=== PATIENT | male | born 1950 | race Caucasian/White ===

== ENCOUNTER 2017-04-24 18:13 | Inpatient (IN) ==
--- NOTE | 2017-04-24 18:44 | Emergency Department Note ---
Altered Mental Status HPI - General Chief Complaint: Altered Mental Status Stated Complaint: Decreased LOC Time Seen by Provider: 04/24/17 18:15 - History of Present Illness HPI Narrative: History is obtained from EMS as well as a caregiver. According to EMS he's had a previous history of stroke, history of left-sided weakness and today he's had some tremors. Also was running a low-grade fever. Was disoriented when EMS got there apparently had been like this for about 4 hours. No new focal weakness, he denies any headache and he does note that he is at the hospital. He does remember coming here. No history of any vomiting, no diarrhea, no history of any chest pain or shortness of breath, he is not currently smoking or drinking. Caregiver states that he's been confused for about the last 4 hours. Blood pressure was 137 diastolic when EMS arrived. History is very confusing in the sense that the sister arrived, she tells me that he has been under her care for the last 3 weeks. She is not present but she found out from 2 of his other roommates that he had been vomiting. He vomited this morning starting about 10:00 and then a neighbor was upstairs found out that he was not doing well and called EMS. When EMS arrived he was confused, his blood pressure was very high he seems back to his baseline at this time. Sister is verified that he is back to his baseline. He denies any headache. He did have tremors of his upper and lower extremities today, he does have a lot of spasms and his sister states that she was not present during the day today. She is denying that he is having trouble taking his medications but then he is not able to use his left arm and there is a question as to whether he received any of his medications today other than the ones he takes this morning.he denies chest pain he denies abdominal pain denies constipation or diarrhea. He's had no urinary symptoms. MD complaint: altered mental status - Related Data Home Medications Medication Instructions Recorded Confirmed Aspirin [Stephen Chewable Aspirin] 81 mg PO DAILY 04/24/17 04/24/17 Baclofen 20 mg PO TID 04/24/17 04/24/17 Lisinopril [Zestril] 10 mg PO BID 04/24/17 04/24/17 Melatonin 10 mg PO HS 04/24/17 04/24/17 Oxybutynin Chloride [Ditropan] 5 mg PO BID 04/24/17 04/24/17 Pantoprazole [Protonix] 40 mg PO DAILY 04/24/17 04/24/17 Pramipexole [Mirapex] 0.5 mg PO BID 04/24/17 04/24/17 Sertraline [Zoloft] 150 mg PO DAILY 04/24/17 04/24/17 guaiFENesin [Guaifenesin] 400 mg PO DAILY 04/24/17 04/24/17 oxyCODONE HCL [Oxycodone HCl] 5 mg PO DAILY 04/24/17 04/24/17 oxyCODONE HCL [Oxycodone HCl] 10 mg PO BID 04/24/17 04/24/17 rOPINIRole HCL [Requip] 2 mg PO HS 04/24/17 04/24/17 traZODone HCL [Trazodone HCl] 100 mg PO HS 04/24/17 04/24/17 Allergies Allergy/AdvReac Type Severity Reaction Status Date / Time No Known Drug Allergies Allergy Unverified 04/24/17 18:22 Review of Systems Constitutional: Denies: fever, chills Eyes: Denies: eye pain ENT ED: Denies: ear pain, throat pain Cardiovascular: Denies: chest pain, palpitations Respiratory: Reports: cough Gastrointestinal: Reports: nausea, vomiting. Denies: abdominal pain Genitourinary: Denies: dysuria Musculoskeletal: Denies: back pain Neurological: Reports: weakness, paresthesias, abnormal gait, other (gait and neurologic symptoms are old). Denies: headache Endocrine: Denies: heat or cold intolerance Hematological/Lymphatic: Denies: easy bleeding Past Medical History - Past Medical History Source: nursing notes reviewed Medical history: Reports: COPD, CVA Surgical history ED: Reports: non-contributory - Social History smoking status: Current every day smoker Alcohol use: Reports: Rarely Drug use: Reports: none Physical Exam - General Limitations: altered mental status, physical limitation General appearance: alert, in no apparent distress - Head Head exam: atraumatic, normocephalic, normal inspection - Eye Eye exam: Present: normal appearance, PERRL, other (Visual field deficitright lateral as well as left inferior and left lateral). Absent: conjunctival injection, nystagmus, visual hernandez inctact - ENT ENT exam: normal exam, normal oropharynx, mucous membranes moist, TM's normal bilaterally, normal external ear exam - Neck Neck exam: Present: normal inspection, full ROM, trachea midline. Absent: tenderness, thyromegaly - Chest Chest inspection: Present: normal inspection, symmetric chest wall rise. Absent : tenderness - Respiratory Respiratory exam: Present: normal lung sounds bilaterally. Absent: respiratory distress, wheezes, accessory muscle use - Cardiovascular Cardiovascular exam: Present: regular rate, normal heart sounds - Abdominal Exam Abdominal exam: Present: soft, normal bowel sounds. Absent: distention, tenderness, guarding - Extremities Exam Extremities exam: Present: other (muscle spasm mainly of his left lower extremity with decreased sensation. Also 3 beat clonus to his right ankle, spasms of his right hand and left arm with decreased sensation and movement to the left arm, residual left arm weakness. He wears a brace to his left lower leg.). Absent: full ROM, tenderness - Back Exam Back exam: Present: normal inspection. Absent: CVA tenderness (R), CVA tenderness (L) - Neurological Exam Neurological exam: Present: alert, oriented X3, motor sensory deficit - Psychiatric Psychiatric exam: Present: normal affect - Skin Skin exam: Present: warm, dry, intact. Absent: rash Course - Reevaluation(s) Reevaluation #1: Head CT showing several old strokes, perhaps a new evolving stroke. There was some edema mentioned. His behavior seems odd in the sense that he is picking at things, a sister does think he is a little bit confused but to me he is awake alert oriented 3 his behavior has improved and he may have had seizure- like activity related to his previous CVA. At this point it would be important to watch him in the hospital with neuro checks, initiate TIA workup and proceed from there. Monitor his blood pressure as he was quite hypertensive initially. Also his white blood cell count is slightly elevated which may be from vomiting, he also need to be monitored for possible aspiration.discussed with Dr. Jasso Vital Signs Temperature 99.9 F H 04/24/17 18:14 Pulse Rate 111 H 04/24/17 18:14 Respiratory Rate 18 04/24/17 18:14 Blood Pressure 184/79 04/24/17 18:14 Pulse Oximetry (%) 97 04/24/17 18:14 Temperature 99.9 F H 04/24/17 18:14 Pulse Rate 89 04/24/17 20:16 Respiratory Rate 16 04/24/17 20:16 Blood Pressure 147/73 04/24/17 20:16 Pulse Oximetry (%) 96 04/24/17 20:16 Altered Mental Status - MDM Narrative Medical decision making narrative: impression isaltered level of mentation. Rule out stroke. - Lab Data Result diagrams: 04/24/17 19:00 04/24/17 19:00 Lab Results 04/24/17 04/24/17 04/24/17 Range/Units 19:00 19:00 19:00 WBC 12.5 H (4.5-11.0) K/mcL RBC 4.59 (4.50-5.90) M/mcL Hgb 14.6 (13.5-16.5) g/dL Hct 42.9 (41.0-55.0) % MCV 93.6 (80.0-100.0) fL MCH 31.7 (26.0-34.0) pg MCHC 33.9 (31.0-36.0) g/dL RDW 16.0 H (11.5-14.5) % Plt Count 159 (140-440) K/mcL MPV 8.7 (7.4-10.4) fL Gran % 82.1 H (38.0-78.0) % Lymph % (Auto) 13.7 L (15.5-49.0) % [place] % (Auto) 2.8 (1.0-12.0) % Eos % (Auto) 1.2 (0.0-7.0) % Baso % (Auto) 0.2 (0.0-2.0) % Gran # 10.3 H (1.8-8.0) K/mcL Lymph # (Auto) 1.7 (1.5-4.8) K/mcL [place] # (Auto) 0.3 (0.1-0.9) K/mcL Eos # (Auto) 0.1 (0.0-0.7) K/mcL Baso # (Auto) 0 (0.0-0.3) K/mcL Sodium 136 (133-145) mmol/L Potassium 4.6 (3.3-5.1) mmol/L Chloride 97 (96-108) mmol/L Carbon Dioxide 24 (22-30) mmol/L Anion Gap 15.0 (8-16) BUN 31 H (8-23) mg/dl Creatinine 1.6 H (0.7-1.2) mg/dl GFR Calculation 44 Glucose 124 H (70-105) mg/dL Calcium 9.2 (8.6-10.4) mg/dl Total Bilirubin 0.3 (0.0-1.0) mg/dL AST 19 (0-37) U/l ALT 19 (0-40) U/l Alkaline Phosphatase 68 (39-117) U/L C-Reactive Protein < 0.3 (0.0-0.8) mg/dl Total Protein 6.9 (5.9-8.4) gm/dL Albumin 4.4 (3.2-5.2) gm/dL Globulin 2.5 (2.2-3.7) gm/dL Albumin/Globulin Ratio 1.8 (1.0-2.3) Vitamin B12 833.3 (243-894) pg/ml Folate (4.2-19.9) ng/mL TSH 1.99 (0.27-5.01) uIU/ml Thyroxine (T4) 5.1 (5.0-12.0) ug/dl Urine Color Urine Appearance Urine pH (5.0-9.0) Ur Specific [place] (1.000-1.035) Urine Protein (NEG) mg/dL Urine Glucose (UA) (NEG) mg/dL Urine Ketones (NEG) mg/dL Urine Occult Blood (<0.03) mg/dL Urine Nitrate (NEG) Urine Bilirubin (NEG) mg/dL Urine Urobilinogen (NEG) mg/dL Ur Leukocyte Esterase (NEG) /uL Urine RBC (0-1) /hpf Urine WBC (0-4) /hpf Ur Squamous Epith Cells (0-4) /hpf Urine Bacteria (0) /hpf Hyaline Casts (0-2) /lpf Urine Mucus (0) /hpf Ur Culture Indicated? 04/24/17 04/24/17 Range/Units 19:00 19:43 WBC (4.5-11.0) K/mcL RBC (4.50-5.90) M/mcL Hgb (13.5-16.5) g/dL Hct (41.0-55.0) % MCV (80.0-100.0) fL MCH (26.0-34.0) pg MCHC (31.0-36.0) g/dL RDW (11.5-14.5) % Plt Count (140-440) K/mcL MPV (7.4-10.4) fL Gran % (38.0-78.0) % Lymph % (Auto) (15.5-49.0) % [place] % (Auto) (1.0-12.0) % Eos % (Auto) (0.0-7.0) % Baso % (Auto) (0.0-2.0) % Gran # (1.8-8.0) K/mcL Lymph # (Auto) (1.5-4.8) K/mcL [place] # (Auto) (0.1-0.9) K/mcL Eos # (Auto) (0.0-0.7) K/mcL Baso # (Auto) (0.0-0.3) K/mcL Sodium (133-145) mmol/L Potassium (3.3-5.1) mmol/L Chloride (96-108) mmol/L Carbon Dioxide (22-30) mmol/L Anion Gap (8-16) BUN (8-23) mg/dl Creatinine (0.7-1.2) mg/dl GFR Calculation Glucose (70-105) mg/dL Calcium (8.6-10.4) mg/dl Total Bilirubin (0.0-1.0) mg/dL AST (0-37) U/l ALT (0-40) U/l Alkaline Phosphatase (39-117) U/L C-Reactive Protein (0.0-0.8) mg/dl Total Protein (5.9-8.4) gm/dL Albumin (3.2-5.2) gm/dL Globulin (2.2-3.7) gm/dL Albumin/Globulin Ratio (1.0-2.3) Vitamin B12 (243-894) pg/ml Folate > 20.0 H (4.2-19.9) ng/mL TSH (0.27-5.01) uIU/ml Thyroxine (T4) (5.0-12.0) ug/dl Urine Color Yellow Urine Appearance Hazy Urine pH 5.0 (5.0-9.0) Ur Specific [place] 1.017 (1.000-1.035) Urine Protein Neg (NEG) mg/dL Urine Glucose (UA) Negative (NEG) mg/dL Urine Ketones Neg (NEG) mg/dL Urine Occult Blood Neg (<0.03) mg/dL Urine Nitrate Neg (NEG) Urine Bilirubin Neg (NEG) mg/dL Urine Urobilinogen Neg (NEG) mg/dL Ur Leukocyte Esterase Neg (NEG) /uL Urine RBC 2 H (0-1) /hpf Urine WBC 1 (0-4) /hpf Ur Squamous Epith Cells 0 (0-4) /hpf Urine Bacteria 0 (0) /hpf Hyaline Casts 3 H (0-2) /lpf Urine Mucus Mod (0) /hpf Ur Culture Indicated? No Disposition Pt seen by [facility]/PA only: No Clinical Impression: Altered mental status Disposition: Xfer As Outpt/Obs ([facility]) Condition: Fair
[2017-04-24] MEDS ORDERED: LACTATED RINGERS 1,000 ML IV ONE (18:48)
[2017-04-24] MEDS ORDERED: BACLOFEN 10 MG TABLET PO ONE (18:50)
[2017-04-24] MEDS ORDERED: LISINOPRIL 10 MG TABLET PO ONE (18:50)
--- NOTE | 2017-04-24 19:29 | XRay Report ---
CLINICAL INFORMATION: Cough COMPARISON: None. FINDINGS:The heart size, mediastinum and pulmonary vessels are unremarkable. The lungs are clear. There are no effusions. The bones and soft tissues are within normal limits. IMPRESSION: Normal chest. Interpreted and Authenticated by: Harlan Nowak 04/24/17
--- NOTE | 2017-04-24 19:31 | Cat Scan Report ---
CLINICAL INFORMATION: Decreased level consciousness COMPARISON: None. TECHNIQUE: 2.5 mm helical slices were obtained in the skull base to vertex. Following reconstruction, axial reformatted images were reviewed at bone and parenchymal windows. FINDINGS: There is a large remote cortical-based infarct in the right frontal lobe with a moderate old cortical-based infarct in the inferior left frontal lobe. There is mild obscuration of the cortical medullary junction of the left cerebral hemisphere with generalized swelling suggesting the possibility of a larger acute left MCA infarct. The ventricles sulci fissures and cisterns are otherwise enlarged relative atrophy. There is no intracerebral hemorrhage. IMPRESSION: 1. Mild swelling in the left cerebral hemisphere with indistinct cortical medullary junction suggesting the possibility of an acute nonhemorrhagic left MCA infarct. 2. Moderate old cortical-based infarcts in the mid right frontal lobe and inferior left frontal lobe.. Interpreted and Authenticated by: Harlan Nowak 04/24/17
[2017-04-24 19:38] LABS: Basophils # (Auto) 0 K/mcL (0.0-0.3); Basophils % (Auto) 0.2 % (0.0-2.0); Eosinophils # (Auto) 0.1 K/mcL (0.0-0.7); Eosinophils % (Auto) 1.2 % (0.0-7.0); Granulocytes % (Auto) 82.1 % (38.0-78.0); Lymphocytes # (Auto) 1.7 K/mcL (1.5-4.8); Lymphocytes % (Auto) 13.7 % (15.5-49.0); Mean Cell Volume 93.6 fL (80.0-100.0); Mean Corpuscular HGB Conc 33.9 g/dL (31.0-36.0); Mean Corpuscular Hemoglobin 31.7 pg (26.0-34.0); Monocytes # (Auto) 0.3 K/mcL (0.1-0.9); Monocytes % (Auto) 2.8 % (1.0-12.0); Platelet Count 159 K/mcL (140-440); RBC 4.59 M/mcL (4.50-5.90)
[2017-04-24 19:57] LABS: ALT/SGPT 19 U/l (0-40); Albumin 4.4 gm/dL (3.2-5.2); Albumin/Globulin Ratio 1.8 (1.0-2.3); Alkaline Phosphatase 68 U/L (39-117); Blood Urea Nitrogen 31 mg/dl (8-23)
[2017-04-24 20:28] LABS: Appearance,Urine HAZY; Bacteria,Urine 0 /hpf (0); Bilirubin,Urine NEG (NEG); Color,Urine YELLOW; Glucose,Urine (UA) NEGATIVE (NEG); Leukocyte Esterase,Urine NEG /uL (NEG); Mucus,Urine MOD /hpf (0); Nitrate,Urine NEG (NEG); Protein,Urine NEG (NEG); Specific Gravity,Urine 1.017 (1.000-1.035); Urine Blood NEG mg/dL (<0.03); Urine Hyaline Cast 3 /lpf (0-2); Urine RBC 2 /hpf (0-1); Urine Squamous Epithelial Cell 0 /hpf (0-4); Urine WBC 1 /hpf (0-4); Urobilinogen,Urine NEG (NEG)
[2017-04-24 20:43] LABS: C-Reactive Protein < 0.3 mg/dl (0.0-0.8); T4 (Thyroxine) 5.1 ug/dl (5.0-12.0); Vitamin B12 833.3 pg/ml (243-894)
--- NOTE | 2017-04-24 21:13 | Internal Med History&Physical ---
Medical - H&P: HPI Patient information: Note initiated : 04/24/17 at 9:10 pm Service Date, if different from initiated Date: [] Patient: Maurisio Briceno 67 y/o M admitted on for Decreased LOC. Chief Complaint: [] History of present illness: Mr. Briceno is a 67 year old man who just moved here a few weeks ago from [facility], to live with his sister. He reportedly had a stroke causing left-sided paralysis almost exactly 2 years ago. He continues to smoke. He is not a very good historian, so I am not sure if I have an accurate history. Reportedly he was acting unusual today, and his sister was called to evaluate him. He was acting strangely, and seemed disoriented. She reported that he had some vomiting. 911 was called and he was brought to the emergency room. A dry head CT is suggestive of a new left-sided MCA infarct. The patient seems to indicate that he was in his normal state of health until earlier today. He thinks he has had a fever and a cough for the last couple of days, but is not sure. He does think his vision seemed to decrease today, mainly in the left visual field area. Otherwise, he denies chills, headaches or dizziness, new ear symptoms, sore throat, swollen glands, chest pain or palpitations, shortness of breath or wheezing, abdominal pain, diarrhea or constipation, dysuria. Past medical history: Hypertension Stroke Patient is really unable to recall. He thinks he has been treated for depression. He cannot recall much else. Was previously followed by Dr. Young at the [facility] in [facility]. From records received via fax: History of intracranial hemorrhage, left hemiplegia, left sided visual field defect, 2014 Tobacco abuse next line hypertension History of C. difficile colitis GERD Obstructive sleep apnea Restless leg syndrome Insomnia Major depression Chronic opioid therapy Medications: Aspirin 81 mg daily Baclofen 20 mg 3 times daily Guaifenesin 400 mg daily Lisinopril 10 mg twice daily Melatonin 10 mg nightly Ditropan 5 mg twice daily Oxycodone 10 mg p.o. twice daily and 5 mg midday Oxycodone 5 mg daily Protonix 40 mg daily Mirapex 0.5 mg twice daily Requip 2 mg nightly Sertraline 150 mg daily Trazodone 100 mg nightly Allergies: No known drug allergies. Family history: Social history: The patient indicates he has been smoking cigarettes since about age 21, and currently smokes a half pack per day. He denies alcohol use. He does smoke marijuana, but could not quantify how much for me. He is currently living with his sister. Medical - H&P: Meds Home Medications Medication Instructions Recorded Confirmed Type Aspirin [Stephen Chewable Aspirin] 81 mg PO DAILY 04/24/17 04/24/17 History Baclofen 20 mg PO TID 04/24/17 04/24/17 History Lisinopril [Zestril] 10 mg PO DAILY 04/24/17 04/25/17 History Melatonin 10 mg PO HS 04/24/17 04/24/17 History Oxybutynin Chloride [Ditropan] 5 mg PO BID 04/24/17 04/24/17 History Pantoprazole [Protonix] 40 mg PO DAILY 04/24/17 04/24/17 History Pramipexole [Mirapex] 0.5 mg PO BID 04/24/17 04/24/17 History Sertraline [Zoloft] 150 mg PO DAILY 04/24/17 04/24/17 History guaiFENesin [Guaifenesin] 400 mg PO DAILY 04/24/17 04/24/17 History oxyCODONE HCL [Oxycodone HCl] 5 mg PO DAILY@1400 04/24/17 04/25/17 History oxyCODONE HCL [Oxycodone HCl] 10 mg PO BID 04/24/17 04/24/17 History rOPINIRole HCL [Requip] 2 mg PO HS 04/24/17 04/24/17 History traZODone HCL [Trazodone HCl] 100 mg PO HS 04/24/17 04/24/17 History Allergies Allergy/AdvReac Type Severity Reaction Status Date / Time No Known Drug Allergies Allergy Unverified 04/24/17 18:22 Medical - H&P: Exam - Constitutional Vitals: Temp Pulse Resp BP Pulse Ox 99.9 F H 89 16 147/73 96 04/24/17 18:14 04/24/17 20:16 04/24/17 20:16 04/24/17 20:16 04/24/17 20:16 Exam: On exam, the patient is very fidgety. He has frequent spasms of his left leg. He has fairly constant movements of his right arm and both lower extremities and head. Head: Is normocephalic, atraumatic. Eyes: Pupils are slightly unequal, but reactive to light, EOMI, anicteric. Ears canals and TMs are clear. Pharynx is clear. He has full upper and lower plates. Teeth are nicotine stained. Neck: Appears supple. There is no obvious JVD, thyromegaly, lymphadenopathy. It was difficult to listen for bruits, as he could not sit still or stop his frequent moans. Cardiac exam: Shows regular rate and rhythm with normal S1 and S2. No murmurs, rubs, gallops are noted. Lungs: Clear to auscultation, without rales, rhonchi, wheezes. Abdomen: Soft and nontender with no masses obvious. Bowel sounds are active. There is no guarding or rebound noted. Extremities: Fingers are nicotine stained. Lower extremities do not show edema. Fingers and toes are a bit dusky. Neurologic exam: The patient is awake and alert. Most of his answers are appropriate, but he seems quite forgetful. Cranial nerves II through XII are grossly intact, other than a very slight left lower face droop. Motor exam shows that he is paralyzed with a flexion contracture of his left arm. He has some movement in the left leg, but also has very frequent spasms of the left leg. Cerebellar exam: Was not easily testable. He cannot use the left hand. For the right upper extremity he cannot hold it still straight out in front of him, without drift. Finger to finger exam and finger to nose exam shows some past pointing. Sensory: Deep tendon reflexes: Medical - H&P: Reslt - Labs CBC & Chem 7: 04/25/17 03:30 04/25/17 03:30 Labs: Short CBC 04/24/17 Range/Units 19:00 WBC 12.5 H (4.5-11.0) K/mcL Hgb 14.6 (13.5-16.5) g/dL Hct 42.9 (41.0-55.0) % Plt Count 159 (140-440) K/mcL BMP 04/24/17 19:00 Sodium 136 Potassium 4.6 Chloride 97 Carbon Dioxide 24 BUN 31 H Creatinine 1.6 H Glucose 124 H Calcium 9.2 Liver Function 04/24/17 Range/Units 19:00 Total Bilirubin 0.3 (0.0-1.0) mg/dL AST 19 (0-37) U/l ALT 19 (0-40) U/l Alkaline Phosphatase 68 (39-117) U/L Albumin 4.4 (3.2-5.2) gm/dL Urine 04/24/17 Range/Units 19:43 Urine Color Yellow Urine Appearance Hazy Urine pH 5.0 (5.0-9.0) Ur Specific [place] 1.017 (1.000-1.035) Urine Protein Neg (NEG) mg/dL Urine Glucose (UA) Negative (NEG) mg/dL Head CT without contrast: IMPRESSION: 1. Mild swelling in the left cerebral hemisphere with indistinct cortical medullary junction suggesting the possibility of an acute nonhemorrhagic left MCA infarct. 2. Moderate old cortical-based infarcts in the mid right frontal lobe and inferior left frontal lobe.. Chest x-ray: Normal chest. Medical - H&P: A/P (1) Leukocytosis Current visit: Yes Status: Acute (2) SIRS (systemic inflammatory response syndrome) Current visit: Yes Status: Acute (3) Acute kidney injury Current visit: Yes Status: Acute (4) Hypertension Current visit: Yes Status: Chronic (5) Acute ischemic left MCA stroke Current visit: Yes Status: Acute (6) Altered mental status Current visit: Yes Status: Acute - Narrative A/P Narrative: #1. Neurologic. Patient presents with altered mental status, and CT scan suggestive of possible MCA ischemic stroke. -Admit to telemetry for monitoring. -Continue aspirin, add Plavix. -Attempt MRI/MRA of the neck and brain tomorrow. -Permissive hypertension tonight. -Patient is encouraged to discontinue smoking, but it would appear that that is probably not going to happen. -NicoDerm patch is offered. -Patient presents with chronic prescriptions for baclofen, Requip. I expect these are to deal with the spasticity from his previous stroke. 2. Renal. Patient presents with renal insufficiency, possibly acute. Recheck labs in the morning after hydration. Try to obtain previous records from previous MD. 3. Infectious disease. Patient presents with fever, tachycardia, leukocytosis, consistent with SIRS syndrome. Check blood cultures. Chest x-ray and urinalysis look okay at this time. 4. CODE STATUS: Patient seems to indicate he would like to be a full code. He says his sister will act as his POA. 5. DVT prophylaxis: Subcu heparin. 6. Hypertension. -Do not treat unless it is consistently greater than 200/100. Hold lisinopril this evening. 7. Tobacco abuse. Patient is encouraged to stop. 8. Possible history of depression. Continue sertraline. Continue trazodone. 9. . Patient is on oxybutynin, but is not sure why. Try to verify an old records. Next 10. Reported chronic pain. We need to verify how he takes his oxycodone. He seems to indicate he takes 15 mg twice a day. This visit took approximately 55 minutes, to review his case with the ER MD, interview and examine him, and write orders.
[2017-04-24] MEDS ORDERED: CLOPIDOGREL 75 MG TABLET PO SCH (21:30)
[2017-04-24] MEDS ORDERED: NALOXONE HCL 0.4 MG/ML VIAL IV PRN (22:04)
[2017-04-24] MEDS ORDERED: ACETAMINOPHEN 325 MG TABLET PO PRN (22:04)
[2017-04-24] MEDS ORDERED: MAGNESIUM HYDROXIDE 30 ML ORAL.SUSP PO PRN (22:04)
[2017-04-24] MEDS ORDERED: ONDANSETRON 4 MG/2 ML VIAL IV PRN (22:04)
[2017-04-24] MEDS ORDERED: DOCUSATE SODIUM 100 MG CAPSULE PO PRN (22:04)
[2017-04-24] MEDS ORDERED: NICOTINE 14 MG PATCH ONE (22:58)
[2017-04-24] MEDS ORDERED: traZODone HCL 50 MG TABLET ONE (23:17)
[2017-04-24] MEDS ORDERED: oxyCODONE HCL 5 MG TABLET PO ONE (23:18)
[2017-04-24] MEDS: NICOTINE 14 MG PATCH TOPICAL SCH (23:24)
[2017-04-24] MEDS: traZODone HCL 50 MG TABLET PO SCH (23:25)
[2017-04-24] MEDS: rOPINIRole 1 MG TABLET PO SCH (23:26)
[2017-04-24] MEDS: PRAMIPEXOLE 0.25 MG TABLET PO SCH (23:26)
[2017-04-24] MEDS: BACLOFEN 10 MG TABLET PO SCH (23:28)
[2017-04-24] MEDS: OXYBUTYNIN CHLORIDE 5 MG TABLET PO SCH (23:28)
[2017-04-25 07:15] LABS: ALT/SGPT 17 U/l (0-40); Albumin 3.6 gm/dL (3.2-5.2); Albumin/Globulin Ratio 1.4 (1.0-2.3); Alkaline Phosphatase 58 U/L (39-117); Bilirubin,Direct < 0.2 mg/dL (0.0-0.3); Blood Urea Nitrogen 24 mg/dl (8-23); Gamma Glutamyl Transpeptidase 27 U/L (8-61); Magnesium 2.2 mg/dL (1.6-2.5); Uric Acid 5.4 mg/dL (2.5-8.0)
[2017-04-25 07:51] LABS: Basophils # (Auto) 0 K/mcL (0.0-0.3); Basophils % (Auto) 0.4 % (0.0-2.0); Eosinophils # (Auto) 0.2 K/mcL (0.0-0.7); Eosinophils % (Auto) 2.1 % (0.0-7.0); Granulocytes % (Auto) 65.7 % (38.0-78.0); Lymphocytes # (Auto) 2.4 K/mcL (1.5-4.8); Lymphocytes % (Auto) 26.2 % (15.5-49.0); Mean Cell Volume 93.8 fL (80.0-100.0); Mean Corpuscular HGB Conc 34.2 g/dL (31.0-36.0); Mean Corpuscular Hemoglobin 32.1 pg (26.0-34.0); Monocytes # (Auto) 0.5 K/mcL (0.1-0.9); Monocytes % (Auto) 5.6 % (1.0-12.0); Platelet Count 124 K/mcL (140-440); RBC 4.11 M/mcL (4.50-5.90); Red Cell Distribution Width 15.8 % (11.5-14.5)
[2017-04-25] MEDS: PANTOPRAZOLE 40 MG TABLET PO SCH (09:15)
[2017-04-25] MEDS: SERTRALINE 50 MG TABLET PO SCH (10:01)
[2017-04-25] MEDS: NICOTINE 14 MG PATCH TOPICAL SCH (10:01)
[2017-04-25] MEDS: BACLOFEN 10 MG TABLET PO SCH ×3 (10:01→20:56)
[2017-04-25] MEDS: CLOPIDOGREL 75 MG TABLET PO SCH (10:01)
[2017-04-25] MEDS: ASPIRIN 81 MG TAB.CHEW PO SCH (10:01)
[2017-04-25] MEDS: HEPARIN 5,000 UNIT/ML VIAL SQ SCH ×2 (10:02→20:57)
[2017-04-25] MEDS: guaiFENesin 600 MG TAB.SR.12H PO SCH (10:02)
[2017-04-25] MEDS: OXYBUTYNIN CHLORIDE 5 MG TABLET PO SCH ×2 (10:06→20:57)
[2017-04-25] MEDS: PRAMIPEXOLE 0.25 MG TABLET PO SCH ×2 (11:32→20:57)
[2017-04-25] MEDS: oxyCODONE HCL 5 MG TABLET PO SCH ×3 (11:33→21:00)
[2017-04-25] MEDS ORDERED: LORazepam 1 MG TABLET PO ONE (14:27)
[2017-04-25] MEDS ORDERED: LORazepam 2 MG/ML VIAL IV ONE (15:29)
--- NOTE | 2017-04-25 15:29 | Internal Med Progress Note ---
Medical - PN: Subj Patient information: Note initiated : 04/25/17 at 3:29 pm Service Date, if different from initiated Date: [] Patient: Maurisio Briceno 67 y/o M admitted on 04/24/17 for Decreased LOC/Altered Mental Status. Chief Complaint: [] Interval history: April 24, 2017: History of present illness: Mr. Briceno is a 67 year old man who just moved here a few weeks ago from [facility], to live with his sister. He reportedly had a stroke causing left-sided paralysis almost exactly 2 years ago. He continues to smoke. He is not a very good historian, so I am not sure if I have an accurate history. Reportedly he was acting unusual today, and his sister was called to evaluate him. He was acting strangely, and seemed disoriented. She reported that he had some vomiting. 911 was called and he was brought to the emergency room. A dry head CT is suggestive of a new left-sided MCA infarct. The patient seems to indicate that he was in his normal state of health until earlier today. He thinks he has had a fever and a cough for the last couple of days, but is not sure. He does think his vision seemed to decrease today, mainly in the left visual field area. Otherwise, he denies chills, headaches or dizziness, new ear symptoms, sore throat, swollen glands, chest pain or palpitations, shortness of breath or wheezing, abdominal pain, diarrhea or constipation, dysuria. April 25: Today, the patient says he is feeling better. He feels more like himself. He does not really recall much in the way of events from last night. Unfortunately , his sister is not with him today, so I could not get more of a history. The patient notes his left him recently, and he apparently could not live by himself. He moved here 3 weeks ago to move in with his sister. He reports that he had a stroke in 2014, causing left arm and leg paralysis. He does not believe he has any new stroke symptoms at this time. He denies new vision changes, slurred speech, facial droop, new focal weakness, numbness, tingling. Otherwise, he denies fever chills, chest pain or palpitations, shortness of breath or cough, abdominal pain, nausea or vomiting, diarrhea or constipation, dysuria. He did undergo MRI studies today. The only report I have back now says that they do not see acute stroke, but only the old previous MCA stroke on the right side. Past medical history: Hypertension Stroke Patient is really unable to recall. He thinks he has been treated for depression. He cannot recall much else. Was previously followed by Dr. Young at the [facility] in [facility]. From records received via fax: History of intracranial hemorrhage, left hemiplegia, left sided visual field defect, 2015 Tobacco abuse next line hypertension History of C. difficile colitis GERD Obstructive sleep apnea Restless leg syndrome Insomnia Major depression Chronic opioid therapy - Constitutional Vitals: Vital Signs Temp Pulse Resp BP Pulse Ox 98.1 F 73 18 132/76 95 04/25/17 12:00 04/25/17 12:00 04/25/17 12:00 04/25/17 12:00 04/25/17 12:00 Period Temp Pulse Resp BP Sys/Tsang Pulse Ox Last 24 Hr 98.0 F-100.0 F 73-111 14-24 123-184/62-142 91-98 Intake and Output 04/25/17 04/25/17 04/25/17 05:59 13:59 21:59 Intake Total 150 / 150 Output Total 551 / 551 150 / 150 Balance -401 / -401 -150 / -150 Weight 131 lb 8 oz 131 lb 8 oz Patient Weight 04/26/17 05:59 Weight 131 lb 8 oz Intake & Output: Intake & Output 04/25/17 04/25/17 04/25/17 05:59 13:59 21:59 Intake Total 150 / 150 Output Total 551 / 551 150 / 150 Balance -401 / -401 -150 / -150 Weight 131 lb 8 oz 131 lb 8 oz Intake: Oral 150 / 150 Output: Void Amount 550 / 550 150 / 150 # of times incontinent of urine Other: # Voids 1 # Bowel Movements 1 On exam, he is awake and much more alert than last night. He is smiling and joking. Neck is supple without obvious lymphadenopathy or JVD. Cardiac exam shows regular rate and rhythm. Lungs clear to auscultation. Abdomen: Is soft and nontender. Extremities: Show no edema. Neurologic exam: Patient is awake and alert. He has a very slight left facial droop. He has no movement in his left arm or shoulder or hand. He can lift his left leg, but has frequent spastic contractions of his leg. He reports that all of today's findings are chronic. Medical - PN: Obj Da - Labs CBC & Chem 7: 04/25/17 03:30 04/25/17 03:30 Labs: Abnormal Lab Results 04/25/17 04/25/17 04/24/17 03:30 03:30 19:43 WBC RBC 4.11 L Hgb 13.2 L Hct 38.6 L RDW 15.8 H Plt Count 124 L Gran % Lymph % (Auto) Gran # BUN 24 H Creatinine 1.3 H Glucose Folate Urine RBC 2 H Hyaline Casts 3 H 04/24/17 04/24/17 04/24/17 19:00 19:00 19:00 WBC 12.5 H RBC Hgb Hct RDW 16.0 H Plt Count Gran % 82.1 H Lymph % (Auto) 13.7 L Gran # 10.3 H BUN 31 H Creatinine 1.6 H Glucose 124 H Folate > 20.0 H Urine RBC Hyaline Casts April 25: Brain MRI: IMPRESSION: 1. No evidence of acute infarct, hemorrhage or other acute intracerebral abnormality 2. Large remote cortical-based infarct in the right MCA distribution involving the mid/posterior right frontal lobe 3. Small remote cortical-based infarct in the inferior anterior left frontal lobe Echocardiogram: Pending. Head and neck MRA: Pending. April 24: Head CT without contrast: IMPRESSION: 1. Mild swelling in the left cerebral hemisphere with indistinct cortical medullary junction suggesting the possibility of an acute nonhemorrhagic left MCA infarct. 2. Moderate old cortical-based infarcts in the mid right frontal lobe and inferior left frontal lobe.. Chest x-ray: Normal chest. CBC: White blood cell count 12,500, hemoglobin 14, hematocrit 42, platelets 159, 000. Granulocyte count 10,300. Chemistry panel: Notable for BUN 31, creatinine 1.6, glucose 124 Urinalysis: Shows specific gravity 1.017, pH 5.0, negative for nitrites, leukocyte esterase Meds: Medications Acetaminophen (Tylenol) 650 mg PO Q6HP PRN PRN Reason: PAIN/FEVER > 101 Aspirin (Aspirin) 81 mg PO DAILY [facility] Last Admin: 04/25/17 10:01 Dose: 81 mg Baclofen (Lioresal) 20 mg PO TID [facility] Last Admin: 04/25/17 14:33 Dose: 20 mg Clopidogrel Bisulfate (Plavix) 75 mg PO DAILY [facility] Last Admin: 04/25/17 10:01 Dose: 75 mg Docusate Sodium (Colace) 100 mg PO BID PRN PRN Reason: Constipation Last Admin: 04/25/17 10:01 Dose: 100 mg Guaifenesin (Mucinex) 600 mg PO DAILY [facility] Last Admin: 04/25/17 10:02 Dose: 600 mg Heparin Sodium (Porcine) (Heparin) 5,000 unit SQ Q12 [facility] Last Admin: 04/25/17 10:02 Dose: 5,000 unit Magnesium Hydroxide (Milk Of Magnesia) 30 ml PO DAILYP PRN PRN Reason: Constipation Naloxone HCl (Narcan) 0.1 mg IV Q2MIN PRN PRN Reason: Opiate Reversal Nicotine (Nicoderm) 14 mg TOPICAL DAILY@1000 [facility] Last Admin: 04/25/17 10:01 Dose: 14 mg Ondansetron HCl (Zofran) 4 mg IV Q4HP PRN PRN Reason: Nausea And Vomiting Oxybutynin Chloride (Ditropan) 5 mg PO BID [facility] Last Admin: 04/25/17 10:06 Dose: 5 mg Oxycodone HCl (Roxicodone) 5 mg PO DAILY@1400 [facility] Last Admin: 04/25/17 14:32 Dose: 5 mg Oxycodone HCl (Roxicodone) 10 mg PO BID [facility] Last Admin: 04/25/17 11:33 Dose: 10 mg Pantoprazole Sodium (Protonix) 40 mg PO ACB [facility] Last Admin: 04/25/17 09:15 Dose: 40 mg Melatonin 5 Mg (Tablets) 1 dose PO [facility] Pramipexole Dihydrochloride (Mirapex) 0.5 mg PO BID [facility] Last Admin: 04/25/17 11:32 Dose: 0.5 mg Ropinirole HCl (Requip) 2 mg PO [facility] Last Admin: 04/24/17 23:26 Dose: 2 mg Sertraline HCl (Zoloft) 150 mg PO DAILY [facility] Last Admin: 04/25/17 10:01 Dose: 150 mg Trazodone HCl (Desyrel) 100 mg PO HS [facility] Last Admin: 04/24/17 23:25 Dose: 50 mg Medical - PN: A/P - Time Spent With Patient Total time spent is greater than 50% in coordination of care (as documented) at patient's floor/unit and/or counseling patient: (1) Leukocytosis Status: Acute Current Visit: Yes (2) SIRS (systemic inflammatory response syndrome) Status: Acute Current Visit: Yes (3) Acute kidney injury Status: Acute Current Visit: Yes (4) Hypertension Status: Chronic Current Visit: Yes (5) Acute ischemic left MCA stroke Status: Acute Current Visit: Yes (6) Altered mental status Status: Acute Current Visit: Yes - Narrative A/P Narrative: #1. Neurologic. Patient presents with altered mental status, and CT scan suggestive of possible MCA ischemic stroke. -Today his MRI indicates that he is not, in fact, had an acute stroke. Therefore, it is not clear what the cause was of his presenting symptoms. I did not run into his sister today, so still am not quite sure of the history that brought him here. Given that the patient has a history of stroke, and is still smoking, Plavix would probably be a good addition to his regimen. However , old records indicate his previous stroke might have been hemorrhagic. -We will try to clarify with his sister tomorrow his presenting symptoms. In the meantime continue aspirin and statin. Discontinue smoking if able. Continue PT and OT evaluations. -NicoDerm patch is offered. -Patient presents with chronic prescriptions for baclofen, Requip. I expect these are to deal with the spasticity from his previous stroke. 2. Renal. Patient presents with renal insufficiency, possibly acute. Recheck labs in the morning after hydration. Try to obtain previous records from previous MD. 3. Infectious disease. Patient presents with fever, tachycardia, leukocytosis, consistent with SIRS syndrome. Vital signs are fairly normal today. Leukocytosis has resolved. Check blood cultures. Chest x-ray and urinalysis look okay at this time. 4. CODE STATUS: Patient seems to indicate he would like to be a full code. He says his sister will act as his POA. 5. DVT prophylaxis: Subcu heparin. 6. Hypertension. -Blood pressures actually in normal range today. 7. Tobacco abuse. Patient is encouraged to stop. 8. Possible history of depression. Continue sertraline. Continue trazodone. 9. . Patient is on oxybutynin, but is not sure why. Try to verify an old records. 10. Reported chronic pain. We need to verify how he takes his oxycodone. Today his nurse believes she has clarified that he takes 10 mg in the morning and evening, and 5 mg mid day. Medical - PN: Qual - Stroke Onset of Symptoms Date: 04/24/17 Onset of Symptoms Time: 00:00 Symptom Onset Unknown: Yes - VTE Deep Vein Thrombosis/Pulmonary Embolism Present on Admission: No
--- NOTE | 2017-04-25 18:52 | Magnetic Resonance Report ---
CLINICAL INFORMATION: Left-sided paralysis question acute CVA COMPARISON: Head CT from 04/24/2017. TECHNIQUE: Sagittal T1, axial T2 FLAIR diffusion ADC images were acquired FINDINGS: A large remote cortical-based infarct in the right frontal lobe and a small remote cortical-based infarct in the inferior left frontal lobe are again noted. The ventricles and sulci fissures and cisterns are enlarged compatible with mild underlying atrophy. There is mild ex vacuo dilatation of the right lateral ventricle due to volume loss in the right MCA infarct. No region of restricted diffusion to suggest an acute infarct. No intracerebral hemorrhage mass effect or edema. IMPRESSION: 1. No evidence of acute infarct, hemorrhage or other acute intracerebral abnormality 2. Large remote cortical-based infarct in the right MCA distribution involving the mid/posterior right frontal lobe 3. Small remote cortical-based infarct in the inferior anterior left frontal lobe Interpreted and Authenticated by: Harlan Nowak 04/25/17
[2017-04-25] MEDS: rOPINIRole 1 MG TABLET PO SCH (20:57)
[2017-04-25] MEDS ORDERED: MELATONIN 5 MG TABLETS PO SCH (21:00)
[2017-04-25] MEDS: traZODone HCL 50 MG TABLET PO SCH (21:00)
[2017-04-26 05:50] LABS: Basophils # (Auto) 0 K/mcL (0.0-0.3); Basophils % (Auto) 0.5 % (0.0-2.0); Eosinophils # (Auto) 0.3 K/mcL (0.0-0.7); Eosinophils % (Auto) 3.7 % (0.0-7.0); Granulocytes % (Auto) 55.2 % (38.0-78.0); Lymphocytes # (Auto) 2.7 K/mcL (1.5-4.8); Lymphocytes % (Auto) 34.2 % (15.5-49.0); Mean Cell Volume 94.2 fL (80.0-100.0); Mean Corpuscular HGB Conc 33.8 g/dL (31.0-36.0); Mean Corpuscular Hemoglobin 31.9 pg (26.0-34.0); Monocytes # (Auto) 0.5 K/mcL (0.1-0.9); Monocytes % (Auto) 6.4 % (1.0-12.0); Platelet Count 141 K/mcL (140-440); RBC 4.29 M/mcL (4.50-5.90); Red Cell Distribution Width 15.7 % (11.5-14.5)
[2017-04-26 06:21] LABS: ALT/SGPT 17 U/l (0-40); Albumin 3.8 gm/dL (3.2-5.2); Albumin/Globulin Ratio 1.5 (1.0-2.3); Alkaline Phosphatase 61 U/L (39-117); Bilirubin,Direct < 0.2 mg/dL (0.0-0.3); Blood Urea Nitrogen 18 mg/dl (8-23); Gamma Glutamyl Transpeptidase 30 U/L (8-61); Magnesium 2.1 mg/dL (1.6-2.5)
[2017-04-26] MEDS: PANTOPRAZOLE 40 MG TABLET PO SCH (08:53)
--- NOTE | 2017-04-26 08:55 | Magnetic Resonance Report ---
CLINICAL INFORMATION: History of CVA COMPARISON: None. TECHNIQUE:2D and [id number] and 3D MOTSA [id number] images were obtained prior to gadolinium. Following gadolinium, coronal 3D [id number] images were acquired. FINDINGS: The thoracic aortic arch is normal in contour and caliber. Aortic branching is conventional. The brachycephalic, both subclavian and vertebral arteries are widely patent. The right common, internal and external carotid arteries are totally occluded. The left internal carotid artery is occluded commencing at its origin. There is a 50% stenosis at the left common carotid artery origin and also just below the left carotid bifurcation. IMPRESSION: 1. Occlusion of the entire right common, internal and external carotid arteries 2. 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 50% stenosis at the left common carotid origin with a second 50% stenosis at the left common carotid artery just below the bifurcation. (The entire anterior cerebral vascular territory is supplied by the vertebral basilar posterior arterial circulation via cross-filling from patent posterior communicating arteries which reconstitute the anterior and middle cerebral arteries) Interpreted and Authenticated by: Harlan Nowak 04/26/17
--- NOTE | 2017-04-26 09:00 | Magnetic Resonance Report ---
CLINICAL INFORMATION: Multiple strokes COMPARISON: None. TECHNIQUE: 3D [id number] SPGR was used to study the cerebral vasculature. FINDINGS: From the cervical carotid MRA, the patient has known complete occlusion of the entire right common internal and external carotid arteries and also the entire left internal carotid artery. On this exam, both intracranial internal carotid arteries are occluded. The anterior and middle cerebral arteries are reconstituted via patent posterior communicating arteries from the posterior cerebral arteries. 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 The supraclinoid segments of both ICAs are reconstituted via posterior communicating arteries from the posterior cerebral arteries. There is signal within both anterior and middle cerebral arteries, although it is diminished related to slow perfusion pressure. Interpreted and Authenticated by: Harlan Nowak 04/26/17
[2017-04-26] MEDS: SERTRALINE 50 MG TABLET PO SCH (11:10)
[2017-04-26] MEDS: oxyCODONE HCL 5 MG TABLET PO SCH ×2 (11:10→15:18)
[2017-04-26] MEDS: CLOPIDOGREL 75 MG TABLET PO SCH (11:11)
[2017-04-26] MEDS: OXYBUTYNIN CHLORIDE 5 MG TABLET PO SCH (11:11)
[2017-04-26] MEDS: BACLOFEN 10 MG TABLET PO SCH ×2 (11:12→15:19)
[2017-04-26] MEDS: ASPIRIN 81 MG TAB.CHEW PO SCH (11:12)
[2017-04-26] MEDS: PRAMIPEXOLE 0.25 MG TABLET PO SCH (11:13)
[2017-04-26] MEDS: guaiFENesin 600 MG TAB.SR.12H PO SCH (11:13)
[2017-04-26] MEDS: NICOTINE 14 MG PATCH TOPICAL SCH (11:15)
[2017-04-26] MEDS: HEPARIN 5,000 UNIT/ML VIAL SQ SCH (11:15)
--- NOTE | 2017-04-26 13:04 | Discharge Summary ---
Medical - DS: Prov Patient information: Note initiated : 04/26/17 at 1:03 pm Service Date, if different from initiated Date: [] Patient: Maurisio Briceno 67 y/o M admitted on 04/24/17 for Decreased LOC/Altered Mental Status. Chief Complaint: [] Date of admission: 04/24/17 22:00 Discharge date: 04/26/17 Primary care physician: No current local PCP. Previously was Dr. Young in [facility], at [place]. Admitting clinician: Suma Rios Consults: 04/24/17 21:02 Consult to Physician [CONS] Stat Comment: Consulting Provider: Suma Rios Reason For Exam: Physician to Consult Attending physician on discharge: Suma Rios Medical - DS: Meds - Discharge Medications Prescriptions: Atorvastatin [Lipitor] 10 mg PO HS #30 tab Clopidogrel Bisulfate [Plavix] 75 mg PO QDAY #30 tab Active and Home Medications: Discharge medications: Plavix 75 mg daily Aspirin 81 mg daily Lipitor 10 mg nightly Baclofen 20 mg 3 times daily Senna pro 10 mg daily Oxybutynin 5 mg twice a day for bladder symptoms Oxycodone 10 mg twice daily +5 mg mid day Protonix 40 mg daily Mirapex 0.5 mg twice daily Ropinirole 2 mg nightly Sertraline 150 mg daily Trazodone 100 mg p.o. nightly next line Tylenol 650 mg every 6 hours as needed Colace 100 mg twice daily as needed constipation Guaifenesin 600 mg daily as needed for thick secretions Magnesium hydroxide Melatonin 5 mg nightly NicoDerm patch 14 mg daily Previous home Medications Aspirin [Stephen Chewable Aspirin] 81 mg PO DAILY 04/24/17 [History Confirmed 07/10 Last Taken Unknown] Baclofen 20 mg PO TID 04/24/17 [History Confirmed 04/24/17 Last Taken Unknown] Lisinopril [Zestril] 10 mg PO DAILY 04/24/17 [History Confirmed 04/25/17 Last Taken Unknown] Melatonin 10 mg PO HS 04/24/17 [History Confirmed 04/24/17 Last Taken Unknown] Oxybutynin Chloride [Ditropan] 5 mg PO BID 04/24/17 [History Confirmed 04/24/17 Last Taken Unknown] Pantoprazole [Protonix] 40 mg PO DAILY 04/24/17 [History Confirmed 04/24/17 Last Taken Unknown] Pramipexole [Mirapex] 0.5 mg PO BID 04/24/17 [History Confirmed 04/24/17 Last Taken Unknown] Sertraline [Zoloft] 150 mg PO DAILY 04/24/17 [History Confirmed 04/24/17 Last Taken Unknown] guaiFENesin [Guaifenesin] 400 mg PO DAILY 04/24/17 [History Confirmed 04/24/17 Last Taken Unknown] oxyCODONE HCL [Oxycodone HCl] 5 mg PO DAILY@1400 04/24/17 [History Confirmed 08/10 Last Taken Unknown] oxyCODONE HCL [Oxycodone HCl] 10 mg PO BID 04/24/17 [History Confirmed 04/24/17 Last Taken Unknown] rOPINIRole HCL [Requip] 2 mg PO HS 04/24/17 [History Confirmed 04/24/17 Last Taken Unknown] traZODone HCL [Trazodone HCl] 100 mg PO HS 04/24/17 [History Confirmed 04/24/17 Last Taken Unknown] Medical - DS: Hosp Hospital course: Mr. Briceno is a 67 year old M April 24, 2017: History of present illness: Mr. Briceno is a 67 year old man who just moved here a few weeks ago from [facility], to live with his sister. He reportedly had a stroke causing left-sided paralysis almost exactly 2 years ago. He continues to smoke. He is not a very good historian, so I am not sure if I have an accurate history. Reportedly he was acting unusual today, and his sister was called to evaluate him. He was acting strangely, and seemed disoriented. She reported that he had some vomiting. 911 was called and he was brought to the emergency room. A dry head CT is suggestive of a new left-sided MCA infarct. The patient seems to indicate that he was in his normal state of health until earlier today. He thinks he has had a fever and a cough for the last couple of days, but is not sure. He does think his vision seemed to decrease today, mainly in the left visual field area. Otherwise, he denies chills, headaches or dizziness, new ear symptoms, sore throat, swollen glands, chest pain or palpitations, shortness of breath or wheezing, abdominal pain, diarrhea or constipation, dysuria. April 25: Today, the patient says he is feeling better. He feels more like himself. He does not really recall much in the way of events from last night. Unfortunately , his sister is not with him today, so I could not get more of a history. The patient notes his left him recently, and he apparently could not live by himself. He moved here 3 weeks ago to move in with his sister. He reports that he had a stroke in 2014, causing left arm and leg paralysis. He does not believe he has any new stroke symptoms at this time. He denies new vision changes, slurred speech, facial droop, new focal weakness, numbness, tingling. Otherwise, he denies fever chills, chest pain or palpitations, shortness of breath or cough, abdominal pain, nausea or vomiting, diarrhea or constipation, dysuria. He did undergo MRI studies today. The only report I have back now says that they do not see acute stroke, but only the old previous MCA stroke on the right side. April 26. The patient's MRI did not in fact show a new stroke. Today, the patient feels like he is back to his baseline. He has been up walking with physical therapy. His sister is willing to take him back home with her. Otherwise, he denies fever chills, chest pain or shortness of breath, nausea or vomiting, diarrhea or constipation. On exam, he is awake and much more alert than last night. He is smiling and joking. He is a little bit inappropriate with female staff, wanting to touch them. Neck is supple without obvious lymphadenopathy or JVD. Cardiac exam shows regular rate and rhythm. Lungs clear to auscultation. Abdomen: Is soft and nontender. Extremities: Show no edema. Neurologic exam: Patient is awake and alert. He has a very slight left facial droop. He has no movement in his left arm or shoulder or hand. He can lift his left leg, but has frequent spastic contractions of his leg. He reports that all of today's findings are chronic. Assessment and plan: #1. Neurologic. Patient presents with altered mental status, and CT scan that was suggestive of possible MCA ischemic stroke. -His MRI indicates that he is not, in fact, had an acute stroke. Therefore, it is not clear what the cause was of his presenting symptoms. Given that the patient has a history of stroke, and is still smoking, Plavix would probably be a good addition to his regimen. However, old records indicate his previous stroke might have been hemorrhagic. - continue aspirin and add a statin. Discontinue smoking if able. Continue PT and OT evaluations. -NicoDerm patch is offered. -Patient presents with chronic prescriptions for baclofen, Requip. I expect these are to deal with the spasticity from his previous stroke. 2. Renal. Patient presents with renal insufficiency, possibly acute. Recheck labs in the morning after hydration. Try to obtain previous records from previous MD. 3. Infectious disease. Patient presents with fever, tachycardia, leukocytosis, consistent with SIRS syndrome. Vital signs are fairly normal today. Leukocytosis has resolved. Check blood cultures. Chest x-ray and urinalysis look okay at this time. 4. CODE STATUS: Patient seems to indicate he would like to be a full code. He says his sister will act as his POA. 5. DVT prophylaxis: Subcu heparin. 6. Hypertension. -Blood pressures actually in normal range today. 7. Tobacco abuse. Patient is encouraged to stop. 8. Possible history of depression. Continue sertraline. Continue trazodone. 9. . Patient is on oxybutynin, but is not sure why. Try to verify an old records. 10. Reported chronic pain. We need to verify how he takes his oxycodone. Today his nurse believes she has clarified that he takes 10 mg in the morning and evening, and 5 mg mid day. Discharge diagnosis: Confusion. New stroke ruled out. Tobacco abuse. - Time Spent with Patient Total time spent providing and/or coordinating discharge services: Greater than 30 minutes Medical - DS: Exam - Constitutional Vitals: Vital Signs Temp Pulse Resp BP Pulse Ox 04/26/17 04:00 97.2 F 85 16 107/48 94 04/26/17 00:00 98.9 F 65 14 98/68 94 04/25/17 20:00 98.2 F 64 18 136/77 95 04/25/17 17:30 97.1 F 64 18 109/73 96 Intake and Output 04/25/17 04/26/17 04/26/17 21:59 05:59 13:59 Intake Total 150 / 150 150 / 150 340 / 340 Output Total 650 / 650 253 / 253 Balance -500 / -500 -103 / -103 340 / 340 Intake: Oral 150 / 150 150 / 150 340 / 340 Output: Void Amount 650 / 650 250 / 250 # of times incontinent of urine 3 / 3 Other: Meal Dinner Breakfast Percent of Meal Consumed 75% 100% Feeding Ability Assist with Tray Set Up # Voids 2 Weight 131 lb 5 oz Medical - DS: Data Labs on day of discharge: Labs from last 24 hours 04/26/17 04/26/17 03:35 03:35 WBC 7.9 RBC 4.29 L Hgb 13.7 Hct 40.5 L MCV 94.2 MCH 31.9 MCHC 33.8 RDW 15.7 H Plt Count 141 MPV 9.0 Gran % 55.2 Lymph % (Auto) 34.2 Warren % (Auto) 6.4 Eos % (Auto) 3.7 Baso % (Auto) 0.5 Gran # 4.3 Lymph # (Auto) 2.7 Warren # (Auto) 0.5 Eos # (Auto) 0.3 Baso # (Auto) 0 Sodium 138 Potassium 4.4 Chloride 101 Carbon Dioxide 26 Anion Gap 11.0 BUN 18 Creatinine 1.1 GFR Calculation 70 Glucose 77 Uric Acid 4.0 Calcium 9.0 Phosphorus 2.7 Magnesium 2.1 Total Bilirubin 0.4 Direct Bilirubin < 0.2 GGT 30 AST 16 ALT 17 Alkaline Phosphatase 61 Lactate Dehydrogenase 161 Total Protein 6.3 Albumin 3.8 Globulin 2.5 Albumin/Globulin Ratio 1.5 Triglycerides 91 Preliminary micro results at discharge 04/24/17 22:20 Blood Culture - Preliminary Blood 04/24/17 22:15 Blood Culture - Preliminary Blood April 2: Brain MRI: IMPRESSION: 1. No evidence of acute infarct, hemorrhage or other acute intracerebral abnormality 2. Large remote cortical-based infarct in the right MCA distribution involving the mid/posterior right frontal lobe 3. Small remote cortical-based infarct in the inferior anterior left frontal lobe Echocardiogram: Shows borderline concentric LVH. Normal left ventricular systolic function. Ejection fraction 63%. Head and neck MRA: IMPRESSION: 1. Occlusion of the entire right common, internal and external carotid arteries 2. 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 50% stenosis at the left common carotid origin with a second 50% stenosis at the left common carotid artery just below the bifurcation. 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 The supraclinoid segments of both ICAs are reconstituted via posterior communicating arteries from the posterior cerebral arteries. There is signal within both anterior and middle cerebral arteries, although it is diminished related to slow perfusion pressure. April 24: Head CT without contrast: IMPRESSION: 1. Mild swelling in the left cerebral hemisphere with indistinct cortical medullary junction suggesting the possibility of an acute nonhemorrhagic left MCA infarct. 2. Moderate old cortical-based infarcts in the mid right frontal lobe and inferior left frontal lobe.. Chest x-ray: Normal chest. CBC: White blood cell count 12,500, hemoglobin 14, hematocrit 42, platelets 159, 000. Granulocyte count 10,300. Chemistry panel: Notable for BUN 31, creatinine 1.6, glucose 124 Urinalysis: Shows specific gravity 1.017, pH 5.0, negative for nitrites, leukocyte esterase Medical - DS: A/P - Patient/Caregiver Discharge Instructions Activity: increase activity as tolerated Diet: Low Sodium (2gm) Additional Instructions: 1. Your information has been submitted to a primary care physician; they will contact you with a referral appointment. Next 2. History of stroke. It does not appear that he had another stroke this week , but you are still at high risk, due to ongoing smoking. Please discontinue smoking altogether. He can continue with the NicoDerm patch if that helps. Please continue with baby aspirin every day. I would recommend you also add a new medication, Plavix, to prevent stroke. These review this with your new primary care physician, or ask him to have a follow-up with neurology, to look over your medication regimen. It also appears that you are not on a cholesterol medication, and generally speaking stroke patient should take 1. We will prescribe one for you. Prescriptions: Atorvastatin [Lipitor] 10 mg PO HS #30 tab Clopidogrel Bisulfate [Plavix] 75 mg PO QDAY #30 tab - Problem Maintenance (1) Leukocytosis Status: Acute (2) SIRS (systemic inflammatory response syndrome) Status: Acute (3) Acute kidney injury Status: Acute (4) Hypertension Status: Chronic (5) Acute ischemic left MCA stroke Status: Acute (6) Altered mental status Status: Acute - Follow up Plan Follow up with: Pranay Lizarraga PA-C [Physician [facility]] - 05/07/17 3:30 pm (You have a one time post hospital follow up appointment scheduled.) Disposition: Home, Self-Care Prognosis: Fair Rehab Potential: Fair Overall status at discharge: patient is progressing back to baseline Medical - DS: Qual - VTE Deep Vein Thrombosis/Pulmonary Embolism Present on Admission: No
== END 2017-04-26 15:45 | disposition home or self-care (01) | DRG 65 ==
LOC: ICU 18:13 → ED 18:13 → ICU 22:00 → OBSVTOIN 22:00
PROVIDERS: ADMIT Internal Medicine; ATTEND Internal Medicine

== ENCOUNTER 2020-01-14 04:39 | Inpatient (IN) ==
[2020-01-14 05:09] LABS: POC Blood Urea Nitrogen 23 mg/dl (8-23); POC CO2 26 mmol/L (22-30); POC Calcium, Ionized 1.17 mmol/L (1.16-1.32); POC Chloride 106 mmol/L (96-108); POC Creatinine 1.8 mg/dl (0.7-1.2); POC Glucose, Random 109 mg/dL (70-105); POC INR 0.9 (0.9-1.2); POC Potassium 3.8 mmol/L (3.3-5.1); POC Pro Time 11.3 sec (11.9-14.5); POC Sodium 143 mmol/L (133-145)
[2020-01-14 05:26] LABS: Basophils # (Auto) 0.03 K/mcL (0.00-0.30); Basophils % (Auto) 0.3 % (0.0-2.0); Eosinophils # (Auto) 0.23 K/mcL (0.00-0.70); Eosinophils % (Auto) 2.6 % (0.0-7.0); Granulocytes % (Auto) 67.7 % (38.0-78.0); Hematocrit 42.8 % (40.1-51.0); Hemoglobin 14.4 g/dL (13.7-17.5); Lymphocytes # (Auto) 2.11 K/mcL (1.50-4.80); Lymphocytes % (Auto) 24.1 % (15.5-49.0); Mean Cell Volume 92.8 fL (80.0-100.0); Mean Corpuscular HGB Conc 33.6 g/dL (31.0-36.0); Mean Platelet Volume 10.1 fL (7.4-10.4); Monocytes # (Auto) 0.46 K/mcL (0.10-0.90); Monocytes % (Auto) 5.3 % (1.0-12.0); Platelet Count 151 K/mcL (140-440); RBC 4.61 M/mcL (4.63-6.08); Red Cell Distribution Width 13.6 % (11.5-14.5); WBC 8.8 K/mcL (4.50-11.00)
[2020-01-14 05:59] LABS: ALT/SGPT 7 U/l (0-40); AST/SGOT 12 U/l (0-37); Albumin 4.4 gm/dL (3.2-5.2); Albumin/Globulin Ratio 1.9 (1.0-2.3); Alkaline Phosphatase 70 U/L (39-117); Bilirubin,Total 0.2 mg/dL (0.0-1.0); Blood Urea Nitrogen 21 mg/dl (8-23); Calcium 9.2 mg/dl (8.6-10.4); Carbon Dioxide 25 mmol/L (22-30); Chloride 105 mmol/L (96-108); Globulin 2.3 gm/dL (2.2-3.7); Glomerular Filtration Rate 44; Glucose 116 mg/dL (70-105)
--- NOTE | 2020-01-14 06:36 | Emergency Department Note ---
Neuro HPI General Chief Complaint: Stroke Symptoms Stated Complaint: stroke symptoms Time Seen by Provider: 01/14/20 06:21 Source: patient and EMS Mode of arrival: EMS Limitations: physical limitation History of Present Illness HPI Narrative: Narrative: This patient's called EMS because she was afraid he might be having a new stroke. He was last seen normal at 9 PM when he went to bed. Around 4 this morning he was found on the floor and seemed to have a change in voice and not be able to focus as much as normal. 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 He is unable to ambulate so it is unclear why he was out of bed on the floor but he was found by caregiver. On arrival in the emergency room he does seem alert and does not have any new deficits that I can determine. He does say he has had some seizures in the past. His medication list does not include a specific anticonvulsant but does include Plavix. Last Observed Normal: 21:00 Timing confirmed by: spouse Location: speech History of same: Yes Severity: mild Improves with: time Worsens with: none Associated symptoms: Reports denies other symptoms Treatments Prior to Arrival: none Related Data Home Medications Medication Instructions Recorded Confirmed melatonin 10 mg PO HS 04/24/17 01/14/20 Previous Rx's Medication Instructions Recorded acetaminophen 650 mg PO Q6HP PRN tab 04/26/17 magnesium hydroxide 30 ml PO DAILYP PRN oral.susp 04/26/17 docusate sodium 100 mg capsule 100 mg PO BID PRN #60 cap 06/06/17 leg brace #1 each 09/22/18 pramipexole 0.75 mg tablet 0.75 mg PO TID #90 tab 04/16/19 prednisone 10 mg tablet See Rx Instructions PO .COMPLEX 05/04/19 #27 tab oxybutynin chloride 5 mg tablet 5 mg PO BID #60 tab 10/14/19 oxycodone 10 mg tablet See Rx Instructions .ROUTE 10/27/19 .COMPLEX #90 unknown measurement unit code: tablet atorvastatin 20 mg tablet 10 mg PO HS #90 tab 11/26/19 clopidogrel 75 mg tablet 75 mg PO QDAY #90 tab 12/02/19 lisinopril 10 mg tablet 10 mg PO DAILY #90 tab 12/02/19 pantoprazole 40 mg tablet,delayed 40 mg PO DAILY #90 tab 12/02/19 release sertraline 100 mg tablet 150 mg PO DAILY #135 tab 12/02/19 trazodone 100 mg tablet 200 mg PO HS #60 tab 01/05/20 baclofen 20 mg tablet 20 mg PO .COMPLEX #90 tab 01/12/20 Allergies Allergy/AdvReac Type Severity Reaction Status Date / Time No Known Drug Allergies Allergy Verified 01/14/20 05:16 Review of Systems ROS ROS Narrative: Narrative: All systems ED: reviewed and negative except as stated. [facility] Narrative Patient History Narrative: Narrative: Medical/Surgical/Family History All Active Problems (Updated 01/14/20 @ 08:47 by Petey Barkley MD) Unable to ambulate (Chronic) Anemia (Chronic) AAA (abdominal aortic aneurysm) (Chronic) Chronic pain (Chronic) Contracture, left hand (Acute) Wellness examination (Chronic) Sleep apnea (Acute) Marijuana abuse (Chronic) Tobacco abuse (Chronic) Joint pain (Chronic) Insomnia (Chronic) Depression (Chronic) Muscle pain (Chronic) Arthritis (Chronic) Hypertension (Chronic) Left-sided muscle weakness (Chronic) Stroke (Chronic ~2014) Medical History (Updated 01/14/20 @ 08:47 by Petey Barkley MD) AAA (abdominal aortic aneurysm) (Chronic) Anemia (Chronic) Arthritis (Chronic) Chronic pain (Chronic) r/t contractures following stroke Depression (Chronic) Insomnia (Chronic) Joint pain (Chronic) Left-sided muscle weakness (Chronic) Marijuana abuse (Chronic) Muscle pain (Chronic) Stroke (Chronic ~2014) April 2015 Tobacco abuse (Chronic) Unable to ambulate (Chronic) Wellness examination (Chronic) 06/06/17 Surgical History No pertinent past surgical history (Chronic) Family History Father Cancer Social History Smoking Status: Current every day smoker Alcohol Intake Frequency: does not drink Substance Use: marijuana Exam Narrative Narrative: Narrative: I examined the patient as soon as he arrived in the emergency room and I found him to be alert and his speech was certainly reasonable and did not seem impaired to me. He had noted deficits on the right side and had flaccid paralysis on the left side from previous stroke. General Limitations: physical limitation General appearance: alert and in no apparent distress Head Head: atraumatic and normocephalic Eye Eye: Present normal appearance, PERRL and EOMI; Absent scleral icterus, conjunctival injection and nystagmus ENT ENT: Present normal exam Neck Neck: Present normal inspection and full ROM Chest Chest: Present normal inspection and symmetric chest wall rise Respiratory Respiratory: Present normal lung sounds bilaterally; Absent respiratory distress, rales/crackles and wheezes Cardiovascular Cardiovascular: Present regular rate, normal rhythm and normal heart sounds Adbominal Abdominal: Present soft; Absent distention and tenderness Neurological Neurological: Present alert Expanded Neurological CRANIAL NERVES: facial palsy (VII): Abnormal Left Motor strength - LUE: 0/5 Motor strength - RUE: 5/5 Motor strength - LLE: 0/5 Motor strength - RLE: 5/5 Psychiatric Psychiatric: Present normal affect Skin Skin: Present warm and dry; Absent diaphoresis Course Vital Signs Vital signs: Vital Signs Temperature 98.5 F 01/14/20 04:39 Pulse Rate 83 01/14/20 04:39 Respiratory Rate 20 01/14/20 04:39 Blood Pressure 179/77 01/14/20 04:39 Pulse Oximetry (%) 95 01/14/20 04:39 Temperature 98.5 F 01/14/20 04:39 Pulse Rate 70 01/14/20 08:24 Respiratory Rate 18 01/14/20 08:24 Blood Pressure 163/87 01/14/20 08:24 Pulse Oximetry (%) 97 01/14/20 08:24 [facility] MDM Narrative Medical decision making narrative: Narrative: On arrival in the emergency room I did not feel that this patient was having a significant stroke and certainly not a TPA candidate being 7 hours past last known normal. His initial CT of his head did not show any new abnormalities. His creatinine was too high at 1.8 to do a CTA of head and neck immediately. The patient's mental focusing did seem to improve and on reexamination an hour or so later he seemed to be back to baseline and he felt he was doing just fine. At that point he was able to tell me about the history of his seizure disorder. The had already told the nurses about that. He certainly could have been in a post ictal state. We will continue to observe him for a while longer. His lab work is initially unremarkable. Except for the renal insufficiency. With him returning to normal baseline I am not sure that he needs to be admitted. We will go ahead and do a limited MRI of the brain. I will hand the patient off to Dr. Hedrick for final disposition but I think the patient probably will be able to be discharged. Lab Data Lab results reviewed: Yes I reviewed the patient's lab results. Result diagrams: 01/14/20 04:45 01/14/20 04:45 Labs: Lab Results 01/14/20 01/14/20 01/14/20 Range/Units 04:45 04:45 04:45 WBC 8.8 (4.50-11.00) K/mcL RBC 4.61 L (4.63-6.08) M/mcL Hgb 14.4 (13.7-17.5) g/dL Hct 42.8 (40.1-51.0) % POC Hct 41.0 (41.0-55.0) % MCV 92.8 (80.0-100.0) fL MCH 31.2 (26.0-34.0) pg MCHC 33.6 (31.0-36.0) g/dL RDW 13.6 (11.5-14.5) % Plt Count 151 (140-440) K/mcL MPV 10.1 (7.4-10.4) fL Gran % 67.7 (38.0-78.0) % Lymph % (Auto) 24.1 (15.5-49.0) % [place] % (Auto) 5.3 (1.0-12.0) % Eos % (Auto) 2.6 (0.0-7.0) % Baso % (Auto) 0.3 (0.0-2.0) % Gran # 5.93 (1.80-8.00) K/mcL Lymph # (Auto) 2.11 (1.50-4.80) K/mcL [place] # (Auto) 0.46 (0.10-0.90) K/mcL Eos # (Auto) 0.23 (0.00-0.70) K/mcL Baso # (Auto) 0.03 (0.00-0.30) K/mcL POC PT 11.3 L (11.9-14.5) sec POC INR 0.9 (0.9-1.2) APTT 27 (20-37) sec POC Sodium 143 (133-145) mmol/L Sodium 141 (133-145) mmol/L POC Potassium 3.8 (3.3-5.1) mmol/L Potassium 3.9 (3.3-5.1) mmol/L POC Chloride 106 (96-108) mmol/L Chloride 105 (96-108) mmol/L Carbon Dioxide 25 (22-30) mmol/L POC Total CO2 26 (22-30) mmol/L Anion Gap 11.0 (8-16) POC BUN 23 (8-23) mg/dl BUN 21 (8-23) mg/dl Creatinine 1.6 H (0.7-1.2) mg/dl POC Creatinine 1.8 H (0.7-1.2) mg/dl GFR Calculation 44 Glucose 116 H (70-105) mg/dL POC Glucose 109 H (70-105) mg/dL Calcium 9.2 (8.6-10.4) mg/dl POC WB Ioniz Calcium 1.17 (1.16-1.32) mmol/L Total Bilirubin 0.2 (0.0-1.0) mg/dL AST 12 (0-37) U/l ALT 7 (0-40) U/l Alkaline Phosphatase 70 (39-117) U/L Troponin T (0-0.03) ng/ml Total Protein 6.7 (5.9-8.4) gm/dL Albumin 4.4 (3.2-5.2) gm/dL Globulin 2.3 (2.2-3.7) gm/dL Albumin/Globulin Ratio 1.9 (1.0-2.3) Urine Color Urine Appearance Urine pH (5.0-9.0) Ur Specific [place] (1.000-1.035) Urine Protein (NEG) mg/dL Urine Glucose (UA) (NEG) mg/dL Urine Ketones (NEG) mg/dL Urine Occult Blood (<0.03) mg/dL Urine Nitrate (NEG) Urine Bilirubin (NEG) mg/dL Urine Urobilinogen (NEG) mg/dL Ur Leukocyte Esterase (NEG) /uL Ur Culture Indicated? 01/14/20 01/14/20 Range/Units 04:45 06:40 WBC (4.50-11.00) K/mcL RBC (4.63-6.08) M/mcL Hgb (13.7-17.5) g/dL Hct (40.1-51.0) % POC Hct (41.0-55.0) % MCV (80.0-100.0) fL MCH (26.0-34.0) pg MCHC (31.0-36.0) g/dL RDW (11.5-14.5) % Plt Count (140-440) K/mcL MPV (7.4-10.4) fL Gran % (38.0-78.0) % Lymph % (Auto) (15.5-49.0) % [place] % (Auto) (1.0-12.0) % Eos % (Auto) (0.0-7.0) % Baso % (Auto) (0.0-2.0) % Gran # (1.80-8.00) K/mcL Lymph # (Auto) (1.50-4.80) K/mcL [place] # (Auto) (0.10-0.90) K/mcL Eos # (Auto) (0.00-0.70) K/mcL Baso # (Auto) (0.00-0.30) K/mcL POC PT (11.9-14.5) sec POC INR (0.9-1.2) APTT (20-37) sec POC Sodium (133-145) mmol/L Sodium (133-145) mmol/L POC Potassium (3.3-5.1) mmol/L Potassium (3.3-5.1) mmol/L POC Chloride (96-108) mmol/L Chloride (96-108) mmol/L Carbon Dioxide (22-30) mmol/L POC Total CO2 (22-30) mmol/L Anion Gap (8-16) POC BUN (8-23) mg/dl BUN (8-23) mg/dl Creatinine (0.7-1.2) mg/dl POC Creatinine (0.7-1.2) mg/dl GFR Calculation Glucose (70-105) mg/dL POC Glucose (70-105) mg/dL Calcium (8.6-10.4) mg/dl POC WB Ioniz Calcium (1.16-1.32) mmol/L Total Bilirubin (0.0-1.0) mg/dL AST (0-37) U/l ALT (0-40) U/l Alkaline Phosphatase (39-117) U/L Troponin T < 0.01 (0-0.03) ng/ml Total Protein (5.9-8.4) gm/dL Albumin (3.2-5.2) gm/dL Globulin (2.2-3.7) gm/dL Albumin/Globulin Ratio (1.0-2.3) Urine Color Yellow Urine Appearance Hazy Urine pH 5.0 (5.0-9.0) Ur Specific [place] 1.019 (1.000-1.035) Urine Protein Neg (NEG) mg/dL Urine Glucose (UA) Negative (NEG) mg/dL Urine Ketones Neg (NEG) mg/dL Urine Occult Blood Neg (<0.03) mg/dL Urine Nitrate Neg (NEG) Urine Bilirubin Neg (NEG) mg/dL Urine Urobilinogen Neg (NEG) mg/dL Ur Leukocyte Esterase Neg (NEG) /uL Ur Culture Indicated? No Radiology Data Radiology results reviewed: Yes I reviewed the patient's radiology results. Discharge Plan Patient/Caregiver Discharge Instructions Pt seen by BODY MAKER MACHINE SETTER/PA only: No Clinical Impression: Left-sided muscle weakness, Unable to ambulate Patient Disposition: Still a Patient Follow up with: Anna Yates DO [Primary Care Provider] - Prescriptions: No Action (DME) Knee Support Brace [facility] [place] See Dose Instructions .ROUTE .MEDSUPPLY Qty: 1 RF: 0 pramipexole 0.75 mg tablet 0.75 mg PO TID Qty: 90 RF: 5 oxybutynin chloride 5 mg tablet 5 mg PO BID Qty: 60 RF: 3 oxycodone 10 mg tablet See Rx Instructions .ROUTE .COMPLEX Qty: 90 RF: 0 atorvastatin 20 mg tablet 10 mg PO HS Qty: 90 RF: 1 sertraline 100 mg tablet 150 mg PO DAILY Qty: 135 RF: 0 lisinopril 10 mg tablet 10 mg PO DAILY Qty: 90 RF: 0 pantoprazole 40 mg tablet,delayed release (DR/EC) 40 mg PO DAILY Qty: 90 RF: 0 clopidogrel 75 mg tablet 75 mg PO QDAY Qty: 90 RF: 0 trazodone 100 mg tablet 200 mg PO HS Qty: 60 RF: 0 baclofen 20 mg tablet 20 mg PO .COMPLEX Qty: 90 RF: 0 prednisone 10 mg tablet See Rx Instructions PO .COMPLEX Qty: 27 RF: 0 docusate sodium 100 MG capsule 100 mg PO BID PRN (Reason: Constipation) Qty: 60 RF: 3 melatonin 10 MG capsule 10 mg PO HS RF: 0 acetaminophen 325 MG tablet 650 mg PO Q6HP PRN (Reason: Pain/Fever > 101) RF: 0 magnesium hydroxide 30 ML suspension 30 ml PO DAILYP PRN (Reason: Constipation) RF: 0
[2020-01-14] MEDS ORDERED: LACTATED RINGERS 1,000 ML IV ONE (06:44)
[2020-01-14 07:42] LABS: Appearance,Urine HAZY; Bilirubin,Urine NEG (NEG); Color,Urine YELLOW; Culture Indicated,Urine NO; Glucose,Urine (UA) NEGATIVE (NEG); Ketones,Urine NEG (NEG); Leukocyte Esterase,Urine NEG /uL (NEG); Nitrate,Urine NEG (NEG); Protein,Urine NEG (NEG); Specific Gravity,Urine 1.019 (1.000-1.035); Urine Blood NEG mg/dL (<0.03); Urobilinogen,Urine NEG (NEG)
--- NOTE | 2020-01-14 07:54 | Cat Scan Report ---
History: New stroke symptoms and prior history of bilateral infarcts TECHNIQUE: The brain was imaged without contrast at 2.5 mm intervals. Sagittal and coronal reformats were created. Radiation exposure was limited using dose reduction technology. FINDINGS: There is a large old infarct with encephalomalacia in the right frontal lobe in the distribution right middle cerebral artery. A moderate-sized old infarct is present inferiorly and laterally in the left frontal lobe which also has encephalomalacia. This involves the anterior branches of the left middle cerebral. These have remained stable since a prior CT done on 02/27/18. Associated with this is loss of brain parenchyma and ventricular dilatation of lateral ventricles. No acute infarct is detected. There is no hemorrhage or mass effect. No abnormal extra-axial fluid collection is present. Bone windows show no skull lesion. There is mucosal thickening along the richardson of several ethmoid air cells and in the right maxillary sinus. IMPRESSION: Stable large old right frontal lobe and moderate size old left frontal lobe infarcts No acute abnormality Interpreted and Authenticated by: Juan Chavarria 01/14/20
[2020-01-14] MEDS ORDERED: LORazepam 2 MG/ML VIAL IV ONE (08:39)
--- NOTE | 2020-01-14 09:32 | Magnetic Resonance Report ---
History: New stroke symptoms and prior old bilateral frontal lobe infarcts TECHNIQUE: Stroke protocol was performed using sagittal T1, axial T2 FLAIR and axial diffusion, ADC map images. FINDINGS: On the diffusion-weighted sequence there is a vague zone of mildly increased signal in the left connell radiata, lateral to the body left lateral ventricle. This is at the frontal parietal boundary and measures 1.1 x 2.4 cm. This is mildly diminished signal on the ADC map. No corresponding abnormality is seen on T1 or T2. There is no other evidence of a new infarct. There are stable large old infarcts with encephalomalacia in the frontal lobes bilaterally, right larger than left. The T2-weighted views reveal patchy areas of abnormal increased signal in the centrum semiovale in both frontal and parietal lobes. There is also some increased signal around the periphery of the old frontal lobe infarcts. 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 Cerebellum is normal. There is no hemorrhage or intracranial mass. No abnormal extra-axial fluid collection is present. IMPRESSION: Subtle new infarct evolving in the left connell radiata at the frontoparietal boundary Stable large old infarct in both frontal lobes Dr. Walls was called with the results Interpreted and Authenticated by: Juan Chavarria 01/14/20
--- NOTE | 2020-01-14 10:05 | Emergency Department Note ---
Neuro HPI General Chief Complaint: Stroke Symptoms Stated Complaint: stroke symptoms Time Seen by Provider: 01/14/20 06:21 Source: patient and EMS Mode of arrival: EMS Limitations: physical limitation History of Present Illness HPI Narrative: Narrative: 69-year-old male last seen normal yesterday morning, comes in for dysarthria and confusion. His Sister Onelia is here as well and is able to give me additional history. Apparently he has had a previous stroke with residual left-sided weakness for which she requires assistance for ambulation. This morning she found him have fallen out of bed with his head lodged between a side guard. She brought him in. He is on Plavix. NIH here is 7 but much of that is from residual left-sided weakness from previous stroke I received this patient in checkout from Dr. burch; work-up is already in progress. CT scan of the head was negative and unfortunately he got a milligram of Ativan for sedation prior to an MRI of the brain and so I am unable to talk with him-he is sleeping very soundly. CT angiogram could not be done secondary to elevated creatinine Location: speech History of same: Yes Severity: mild Improves with: time Worsens with: none On Anticoagulants: Yes Treatments Prior to Arrival: none Related Data Home Medications Medication Instructions Recorded Confirmed melatonin 10 mg PO HS 04/24/17 01/14/20 Previous Rx's Medication Instructions Recorded acetaminophen 650 mg PO Q6HP PRN tab 04/26/17 magnesium hydroxide 30 ml PO DAILYP PRN oral.susp 04/26/17 docusate sodium 100 mg capsule 100 mg PO BID PRN #60 cap 06/06/17 leg brace #1 each 09/22/18 pramipexole 0.75 mg tablet 0.75 mg PO TID #90 tab 04/16/19 prednisone 10 mg tablet See Rx Instructions PO .COMPLEX 05/04/19 #27 tab oxybutynin chloride 5 mg tablet 5 mg PO BID #60 tab 10/14/19 oxycodone 10 mg tablet See Rx Instructions .ROUTE 10/27/19 .COMPLEX #90 unknown measurement unit code: tablet atorvastatin 20 mg tablet 10 mg PO HS #90 tab 11/26/19 clopidogrel 75 mg tablet 75 mg PO QDAY #90 tab 12/02/19 lisinopril 10 mg tablet 10 mg PO DAILY #90 tab 12/02/19 pantoprazole 40 mg tablet,delayed 40 mg PO DAILY #90 tab 12/02/19 release sertraline 100 mg tablet 150 mg PO DAILY #135 tab 12/02/19 trazodone 100 mg tablet 200 mg PO HS #60 tab 01/05/20 baclofen 20 mg tablet 20 mg PO .COMPLEX #90 tab 01/12/20 Allergies Allergy/AdvReac Type Severity Reaction Status Date / Time No Known Drug Allergies Allergy Verified 01/14/20 05:16 Review of Systems ROS ROS Narrative: Narrative: PFSH Narrative Patient History Narrative: Narrative: Medical/Surgical/Family History All Active Problems (Updated 01/14/20 @ 10:05 by Vasu Walls MD) Acute CVA (cerebrovascular accident) (Acute) Unable to ambulate (Chronic) Anemia (Chronic) AAA (abdominal aortic aneurysm) (Chronic) Chronic pain (Chronic) Contracture, left hand (Acute) Wellness examination (Chronic) Sleep apnea (Acute) Marijuana abuse (Chronic) Tobacco abuse (Chronic) Joint pain (Chronic) Insomnia (Chronic) Depression (Chronic) Muscle pain (Chronic) Arthritis (Chronic) Hypertension (Chronic) Left-sided muscle weakness (Chronic) Stroke (Chronic ~2014) Medical History (Updated 01/14/20 @ 10:05 by Vasu Walls MD) AAA (abdominal aortic aneurysm) (Chronic) Anemia (Chronic) Arthritis (Chronic) Chronic pain (Chronic) r/t contractures following stroke Depression (Chronic) Insomnia (Chronic) Joint pain (Chronic) Left-sided muscle weakness (Chronic) Marijuana abuse (Chronic) Muscle pain (Chronic) Stroke (Chronic ~2014) April 2015 Tobacco abuse (Chronic) Unable to ambulate (Chronic) Wellness examination (Chronic) 06/06/17 Surgical History No pertinent past surgical history (Chronic) Family History Father Cancer Social History Smoking Status: Current every day smoker Alcohol Intake Frequency: does not drink Substance Use: marijuana Exam Narrative Narrative: Narrative: Sleeping very soundly after getting Ativan. Difficult to arouse him. General Limitations: physical limitation General appearance: alert and in no apparent distress Course Vital Signs Vital signs: Vital Signs Temperature 98.5 F 01/14/20 04:39 Pulse Rate 83 01/14/20 04:39 Respiratory Rate 20 01/14/20 04:39 Blood Pressure 179/77 01/14/20 04:39 Pulse Oximetry (%) 95 01/14/20 04:39 Temperature 98.5 F 01/14/20 04:39 Pulse Rate 51 L 01/14/20 09:59 Respiratory Rate 0 L 01/14/20 09:59 Blood Pressure 113/67 01/14/20 09:59 Pulse Oximetry (%) 96 01/14/20 09:59 [facility] MDM Narrative Medical decision making narrative: Narrative: After getting an MRI report back after shift change I called tele-stroke, Dr. Barnes. Patient is outside the window for both interventional radiology and TPA. His creatinine is 1.[address] angiogram anyways. His NIH score is mostly secondary to his residual symptoms from prior stroke. However MRI does show evolving new stroke at the connell radiata. Dr. Barnes said that the patient was not eligible for intervention at this time. She recommended dual antiplatelet therapy-aspirin and Plavix for the next 30 days. Also recommended inpatient admission for further work-up including carotid ultrasound and echocardiogram, risk modification. Also start rehab I discussed the case with Dr. Bhatti, our hospitalist who agreed to accept the patient. Notified the patient's sister as well Lab Data Lab results reviewed: Yes I reviewed the patient's lab results. Result diagrams: 01/14/20 04:45 01/14/20 04:45 Labs: Lab Results 01/14/20 01/14/20 01/14/20 Range/Units 04:45 04:45 04:45 WBC 8.8 (4.50-11.00) K/mcL RBC 4.61 L (4.63-6.08) M/mcL Hgb 14.4 (13.7-17.5) g/dL Hct 42.8 (40.1-51.0) % POC Hct 41.0 (41.0-55.0) % MCV 92.8 (80.0-100.0) fL MCH 31.2 (26.0-34.0) pg MCHC 33.6 (31.0-36.0) g/dL RDW 13.6 (11.5-14.5) % Plt Count 151 (140-440) K/mcL MPV 10.1 (7.4-10.4) fL Gran % 67.7 (38.0-78.0) % Lymph % (Auto) 24.1 (15.5-49.0) % [place] % (Auto) 5.3 (1.0-12.0) % Eos % (Auto) 2.6 (0.0-7.0) % Baso % (Auto) 0.3 (0.0-2.0) % Gran # 5.93 (1.80-8.00) K/mcL Lymph # (Auto) 2.11 (1.50-4.80) K/mcL [place] # (Auto) 0.46 (0.10-0.90) K/mcL Eos # (Auto) 0.23 (0.00-0.70) K/mcL Baso # (Auto) 0.03 (0.00-0.30) K/mcL POC PT 11.3 L (11.9-14.5) sec POC INR 0.9 (0.9-1.2) APTT 27 (20-37) sec POC Sodium 143 (133-145) mmol/L Sodium 141 (133-145) mmol/L POC Potassium 3.8 (3.3-5.1) mmol/L Potassium 3.9 (3.3-5.1) mmol/L POC Chloride 106 (96-108) mmol/L Chloride 105 (96-108) mmol/L Carbon Dioxide 25 (22-30) mmol/L POC Total CO2 26 (22-30) mmol/L Anion Gap 11.0 (8-16) POC BUN 23 (8-23) mg/dl BUN 21 (8-23) mg/dl Creatinine 1.6 H (0.7-1.2) mg/dl POC Creatinine 1.8 H (0.7-1.2) mg/dl GFR Calculation 44 Glucose 116 H (70-105) mg/dL POC Glucose 109 H (70-105) mg/dL Calcium 9.2 (8.6-10.4) mg/dl POC WB Ioniz Calcium 1.17 (1.16-1.32) mmol/L Total Bilirubin 0.2 (0.0-1.0) mg/dL AST 12 (0-37) U/l ALT 7 (0-40) U/l Alkaline Phosphatase 70 (39-117) U/L Troponin T (0-0.03) ng/ml Total Protein 6.7 (5.9-8.4) gm/dL Albumin 4.4 (3.2-5.2) gm/dL Globulin 2.3 (2.2-3.7) gm/dL Albumin/Globulin Ratio 1.9 (1.0-2.3) Urine Color Urine Appearance Urine pH (5.0-9.0) Ur Specific [place] (1.000-1.035) Urine Protein (NEG) mg/dL Urine Glucose (UA) (NEG) mg/dL Urine Ketones (NEG) mg/dL Urine Occult Blood (<0.03) mg/dL Urine Nitrate (NEG) Urine Bilirubin (NEG) mg/dL Urine Urobilinogen (NEG) mg/dL Ur Leukocyte Esterase (NEG) /uL Ur Culture Indicated? 01/14/20 01/14/20 Range/Units 04:45 06:40 WBC (4.50-11.00) K/mcL RBC (4.63-6.08) M/mcL Hgb (13.7-17.5) g/dL Hct (40.1-51.0) % POC Hct (41.0-55.0) % MCV (80.0-100.0) fL MCH (26.0-34.0) pg MCHC (31.0-36.0) g/dL RDW (11.5-14.5) % Plt Count (140-440) K/mcL MPV (7.4-10.4) fL Gran % (38.0-78.0) % Lymph % (Auto) (15.5-49.0) % [place] % (Auto) (1.0-12.0) % Eos % (Auto) (0.0-7.0) % Baso % (Auto) (0.0-2.0) % Gran # (1.80-8.00) K/mcL Lymph # (Auto) (1.50-4.80) K/mcL [place] # (Auto) (0.10-0.90) K/mcL Eos # (Auto) (0.00-0.70) K/mcL Baso # (Auto) (0.00-0.30) K/mcL POC PT (11.9-14.5) sec POC INR (0.9-1.2) APTT (20-37) sec POC Sodium (133-145) mmol/L Sodium (133-145) mmol/L POC Potassium (3.3-5.1) mmol/L Potassium (3.3-5.1) mmol/L POC Chloride (96-108) mmol/L Chloride (96-108) mmol/L Carbon Dioxide (22-30) mmol/L POC Total CO2 (22-30) mmol/L Anion Gap (8-16) POC BUN (8-23) mg/dl BUN (8-23) mg/dl Creatinine (0.7-1.2) mg/dl POC Creatinine (0.7-1.2) mg/dl GFR Calculation Glucose (70-105) mg/dL POC Glucose (70-105) mg/dL Calcium (8.6-10.4) mg/dl POC WB Ioniz Calcium (1.16-1.32) mmol/L Total Bilirubin (0.0-1.0) mg/dL AST (0-37) U/l ALT (0-40) U/l Alkaline Phosphatase (39-117) U/L Troponin T < 0.01 (0-0.03) ng/ml Total Protein (5.9-8.4) gm/dL Albumin (3.2-5.2) gm/dL Globulin (2.2-3.7) gm/dL Albumin/Globulin Ratio (1.0-2.3) Urine Color Yellow Urine Appearance Hazy Urine pH 5.0 (5.0-9.0) Ur Specific [place] 1.019 (1.000-1.035) Urine Protein Neg (NEG) mg/dL Urine Glucose (UA) Negative (NEG) mg/dL Urine Ketones Neg (NEG) mg/dL Urine Occult Blood Neg (<0.03) mg/dL Urine Nitrate Neg (NEG) Urine Bilirubin Neg (NEG) mg/dL Urine Urobilinogen Neg (NEG) mg/dL Ur Leukocyte Esterase Neg (NEG) /uL Ur Culture Indicated? No Radiology Data Radiology results reviewed: Yes I reviewed the patient's radiology results. Radiology results narrative: CT of the head was negative. MRI of the head strok e protocol without contrast showed evolving connell radiata infarct measuring approximately 1.5 cm diameter. This is on the left. See full report EKG Data EKG #1: EKG attestation: Yes I reviewed and interpreted this EKG. 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 only: No Clinical Impression: Left-sided muscle weakness, Acute CVA (cerebrovascular accident) Patient Disposition: Xfer As Inpt ([facility]) Condition: Serious Follow up with: Anna Yates DO [Primary Care Provider] - Prescriptions: No Action (DME) Knee Support Brace misc See Dose Instructions .ROUTE .MEDSUPPLY Qty: 1 RF: 0 pramipexole 0.75 mg tablet 0.75 mg PO TID Qty: 90 RF: 5 oxybutynin chloride 5 mg tablet 5 mg PO BID Qty: 60 RF: 3 oxycodone 10 mg tablet See Rx Instructions .ROUTE .COMPLEX Qty: 90 RF: 0 atorvastatin 20 mg tablet 10 mg PO HS Qty: 90 RF: 1 sertraline 100 mg tablet 150 mg PO DAILY Qty: 135 RF: 0 lisinopril 10 mg tablet 10 mg PO DAILY Qty: 90 RF: 0 pantoprazole 40 mg tablet,delayed release (DR/EC) 40 mg PO DAILY Qty: 90 RF: 0 clopidogrel 75 mg tablet 75 mg PO QDAY Qty: 90 RF: 0 trazodone 100 mg tablet 200 mg PO HS Qty: 60 RF: 0 baclofen 20 mg tablet 20 mg PO .COMPLEX Qty: 90 RF: 0 prednisone 10 mg tablet See Rx Instructions PO .COMPLEX Qty: 27 RF: 0 docusate sodium 100 MG capsule 100 mg PO BID PRN (Reason: Constipation) Qty: 60 RF: 3 melatonin 10 MG capsule 10 mg PO HS RF: 0 acetaminophen 325 MG tablet 650 mg PO Q6HP PRN (Reason: Pain/Fever > 101) RF: 0 magnesium hydroxide 30 ML suspension 30 ml PO DAILYP PRN (Reason: Constipation) RF: 0
--- NOTE | 2020-01-14 11:02 | Internal Med History&Physical ---
HPI History of Present Illness Patient information: Note initiated : 01/14/20 at 10:54 am Service Date, if different from initiated Date: [] Patient: Maurisio Briceno a 69 y/o M admitted on for Stroke Symptoms. Chief Complaint: [] History of present illness: Mr. Briceno is a 69 year old M History difficult to obtain from patient but per notes he was last seen normal last night. The sister noticed him to be altered this morning with some confusion and possibly some dysarthria. He had a history of stroke in the past with residual left-sided weakness. He had fallen out of bed this morning. He was evaluated in the ED and had an MRI which showed a stroke of the connell radiata. Case was discussed with stroke neurologist in [place] who recommended dual antiplatelet for 30 days as he is currently on Plavix. After the 30 days discontinue the aspirin. Also found to have an elevated creatinine. Review of Systems: Pertinent positives above. Denies headache/fever/chills/nausea/vomiting/chest or abdominal pain/cough/dyspnea/diarrhea. Remaining 10 point review of system reviewed negative [facility] Medical History (Updated 01/14/20 @ 10:05 by Vasu Walls MD) AAA (abdominal aortic aneurysm) (Chronic) Anemia (Chronic) Arthritis (Chronic) Chronic pain (Chronic) r/t contractures following stroke Depression (Chronic) Insomnia (Chronic) Joint pain (Chronic) Left-sided muscle weakness (Chronic) Marijuana abuse (Chronic) Muscle pain (Chronic) Stroke (Chronic ~2014) April 2015 Tobacco abuse (Chronic) Unable to ambulate (Chronic) Wellness examination (Chronic) 06/06/17 Surgical History No pertinent past surgical history (Chronic) Family History Father Cancer Social History (Updated 01/14/20 @ 10:57 by Jah Bhatti DO) marital status: legally smoking status: Current every day smoker tobacco type: cigarettes alcohol intake frequency: does not drink substance use type: marijuana additional history: Patient denies any surgical history Allergies: States mother father were both healthy Social history: Patient smokes 1 pack of cigarettes per day Denies alcohol use Uses a wheelchair and ? Walker Lives with his sister MEDS/ALLERGIES Home Medications and Allergies Home Medications Medication Instructions Recorded Confirmed Type melatonin 10 mg PO HS 04/24/17 01/14/20 History acetaminophen 650 mg PO Q6HP PRN tab 04/26/17 01/14/20 Rx magnesium hydroxide 30 ml PO DAILYP PRN oral.susp 04/26/17 01/14/20 Rx docusate sodium 100 mg capsule 100 mg PO BID PRN #60 cap 06/06/17 01/14/20 Rx leg brace #1 each 09/22/18 01/14/20 Rx pramipexole 0.75 mg tablet 0.75 mg PO TID #90 tab 04/16/19 01/14/20 Rx prednisone 10 mg tablet See Rx Instructions PO .COMPLEX 05/04/19 01/14/20 Rx #27 tab oxybutynin chloride 5 mg tablet 5 mg PO BID #60 tab 10/14/19 01/14/20 Rx oxycodone 10 mg tablet See Rx Instructions .ROUTE 10/27/19 01/14/20 Rx .COMPLEX #90 unknown measurement unit code: tablet atorvastatin 20 mg tablet 10 mg PO HS #90 tab 11/26/19 01/14/20 Rx clopidogrel 75 mg tablet 75 mg PO QDAY #90 tab 12/02/19 01/14/20 Rx lisinopril 10 mg tablet 10 mg PO DAILY #90 tab 12/02/19 01/14/20 Rx pantoprazole 40 mg tablet,delayed 40 mg PO DAILY #90 tab 12/02/19 01/14/20 Rx release sertraline 100 mg tablet 150 mg PO DAILY #135 tab 12/02/19 01/14/20 Rx trazodone 100 mg tablet 200 mg PO HS #60 tab 01/05/20 01/14/20 Rx baclofen 20 mg tablet 20 mg PO .COMPLEX #90 tab 01/12/20 01/14/20 Rx Allergies Allergy/AdvReac Type Severity Reaction Status Date / Time No Known Drug Allergies Allergy Verified 01/14/20 05:16 EXAM Constitutional Vitals: Temp Pulse Resp BP Pulse Ox 98.5 F 51 L 0 L 113/67 96 01/14/20 04:39 01/14/20 09:59 01/14/20 09:59 01/14/20 09:59 01/14/20 09:59 Exam: General: Awake, No acute Distress Eyes/N/T: EOMI, PERRL, MM Head/Neck: neck supple, normocephalic atraumatic CV: RRR, No murmurs, normal s1/s2 Pulm: Clear b/l, no wheezing/rhonchi/rales Abd: soft, nontender, +BS x4 Ext: no clubbing/cyanosis/edema Neuro: Drowsy but awakens to voice, left side hemiparesis of the lower extremity and hemiplegia of the upper extremity. Tongue midline. Appears to be oriented. Follows commands. skin: warm/dry DATA Data Completed and Pending Labs on day of discharge: Labs from last 24 hours 01/14/20 01/14/20 01/14/20 06:40 04:45 04:45 WBC RBC Hgb Hct POC Hct 41.0 MCV MCH MCHC RDW Plt Count MPV Gran % Lymph % (Auto) [place] % (Auto) Eos % (Auto) Baso % (Auto) Gran # Lymph # (Auto) [place] # (Auto) Eos # (Auto) Baso # (Auto) POC PT POC INR APTT POC Sodium 143 Sodium 141 POC Potassium 3.8 Potassium 3.9 POC Chloride 106 Chloride 105 Carbon Dioxide 25 POC Total CO2 26 Anion Gap 11.0 POC BUN 23 BUN 21 Creatinine 1.6 H POC Creatinine 1.8 H GFR Calculation 44 Glucose 116 H POC Glucose 109 H Calcium 9.2 POC WB Ioniz Calcium 1.17 Total Bilirubin 0.2 AST 12 ALT 7 Alkaline Phosphatase 70 Troponin T < 0.01 Total Protein 6.7 Albumin 4.4 Globulin 2.3 Albumin/Globulin Ratio 1.9 Urine Color Yellow Urine Appearance Hazy Urine pH 5.0 Ur Specific [place] 1.019 Urine Protein Neg Urine Glucose (UA) Negative Urine Ketones Neg Urine Occult Blood Neg Urine Nitrate Neg Urine Bilirubin Neg Urine Urobilinogen Neg Ur Leukocyte Esterase Neg Ur Culture Indicated? No 01/14/20 01/14/20 04:45 04:45 WBC 8.8 RBC 4.61 L Hgb 14.4 Hct 42.8 POC Hct MCV 92.8 MCH 31.2 MCHC 33.6 RDW 13.6 Plt Count 151 MPV 10.1 Gran % 67.7 Lymph % (Auto) 24.1 [place] % (Auto) 5.3 Eos % (Auto) 2.6 Baso % (Auto) 0.3 Gran # 5.93 Lymph # (Auto) 2.11 [place] # (Auto) 0.46 Eos # (Auto) 0.23 Baso # (Auto) 0.03 POC PT 11.3 L POC INR 0.9 APTT 27 POC Sodium Sodium POC Potassium Potassium POC Chloride Chloride Carbon Dioxide POC Total CO2 Anion Gap POC BUN BUN Creatinine POC Creatinine GFR Calculation Glucose POC Glucose Calcium POC WB Ioniz Calcium Total Bilirubin AST ALT Alkaline Phosphatase Troponin T Total Protein Albumin Globulin Albumin/Globulin Ratio Urine Color Urine Appearance Urine pH Ur Specific [place] Urine Protein Urine Glucose (UA) Urine Ketones Urine Occult Blood Urine Nitrate Urine Bilirubin Urine Urobilinogen Ur Leukocyte Esterase Ur Culture Indicated? A/P Narrative A/P Narrative: Assessment: *Acute CVA left connell radiata and frontal parietal boundary: *h/o CVA w/left-side weakness arm>Leg: on plavix *MARKUS: *Depression: *HTN: *GERD: *Tobacco abuse: * Plan: -ASA/Plavix for 30 days then d/c ASA per stroke neurologist -Increase home statin -carotid u/s and echo -Permissive HTN, hold lisinopril today - -pt/ot -ppx: lovenox/PPI Time Spent With Patient Time: Total time spent is greater than 50% in coordination of care (as documented) at patient's floor/unit and/or counseling patient: QUALITY Stroke Onset of Symptoms Date: 01/13/20 Onset of Symptoms Time: 21:00
[2020-01-14] MEDS ORDERED: ASPIRIN 81 MG TAB.CHEW CHEWED ONE (11:03)
[2020-01-14] MEDS ORDERED: DOCUSATE SODIUM 100 MG CAPSULE PO PRN (11:31)
[2020-01-14] MEDS ORDERED: POTASSIUM CHLORIDE 20 MEQ TABLET PO PRN ×2 (11:31)
[2020-01-14] MEDS ORDERED: POLYETHYLENE GLYCOL 3350 17 GM PACKET PO PRN (11:31)
[2020-01-14] MEDS ORDERED: POTASSIUM CHLORIDE 40 MEQ in DEXTROSE 5% IN WATER 500 ML IV PRN (11:31)
[2020-01-14] MEDS ORDERED: LABETALOL 5 MG/ML ML IV PRN (11:31)
[2020-01-14] MEDS ORDERED: MAGNESIUM SULFATE 2 GM/50 ML BAG IV PRN (11:31)
[2020-01-14] MEDS ORDERED: OXYCODONE SCH (11:31)
[2020-01-14] MEDS ORDERED: BACLOFEN 20 MG PO SCH (11:31)
[2020-01-14] MEDS ORDERED: IPRATROPIUM/ALBUTEROL 3 ML AMPUL.NEB NEB PRN (11:31)
[2020-01-14] MEDS ORDERED: ONDANSETRON 4 MG/2 ML VIAL IV PRN (11:31)
[2020-01-14] MEDS: 0.9 % SODIUM CHLORIDE 1,000 ML IV SCH (12:53)
--- NOTE | 2020-01-14 14:51 | Ultrasound Report ---
CLINICAL INFORMATION: Acute, superimposed upon chronic strokes COMPARISON: None. TECHNIQUE: Carotid arteries were imaged in sagittal and transverse planes using 5 mHz linear probe: Doppler, color, and 2D. FINDINGS: See worksheet by the technologist for velocities in PACS Please correlate with CTA CT Angiography or MRA MR Angiography if surgery is contemplated. There is a large amount of soft plaque organized thrombus along the wall of the right common carotid. The lumen is narrowed and flow velocities are diminished compared to the left common carotid. 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 There is old organized clot filling the lumen. There is moderate intimal thickening in the mid and distal portion of the left common carotid. There is complete occlusion of the left internal carotid beginning at its origin. This also appears to be due to chronic occlusion. There is plaque at the origin left external carotid creating 50-69% stenosis. Antegrade flow is present in the left vertebral artery. There may be a stenosis at the origin of the right vertebral artery. Systolic flow velocity in the right vertebral is 137 cm/s in the left vertebral is 40 cm/s. 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
[2020-01-14] MEDS: 0.9 % SODIUM CHLORIDE 10 ML SYRINGE IV SCH ×2 (15:49→20:01)
[2020-01-14] MEDS: PRAMIPEXOLE 0.25 MG TABLET PO SCH ×2 (15:56→20:00)
[2020-01-14] MEDS: oxyCODONE HCL 5 MG TABLET PO PRN ×2 (18:22→23:42)
[2020-01-14] MEDS: BACLOFEN 10 MG TABLET PO SCH (19:08)
[2020-01-14] MEDS: OXYBUTYNIN CHLORIDE 5 MG TABLET PO SCH (20:00)
[2020-01-14] MEDS: MELATONIN 3 MG TABLET PO SCH (20:00)
[2020-01-14] MEDS: ACETAMINOPHEN 325 MG TABLET PO PRN (20:00)
[2020-01-14] MEDS: ATORVASTATIN 20 MG TABLET PO SCH (20:01)
[2020-01-14] MEDS: traZODone HCL 100 MG TABLET PO SCH (20:54)
[2020-01-15] MEDS: 0.9 % SODIUM CHLORIDE 1,000 ML IV SCH (00:51)
[2020-01-15] MEDS: oxyCODONE HCL 5 MG TABLET PO PRN ×3 (04:32→23:33)
[2020-01-15] MEDS: 0.9 % SODIUM CHLORIDE 10 ML SYRINGE IV SCH ×3 (05:29→20:12)
[2020-01-15 06:47] LABS: Bilirubin,Direct < 0.2 mg/dL (0.0-0.3)
[2020-01-15 06:52] LABS: ALT/SGPT < 5 U/l (0-40); AST/SGOT 16 U/l (0-37); Albumin 3.5 gm/dL (3.2-5.2); Albumin/Globulin Ratio 1.8 (1.0-2.3); Alkaline Phosphatase 51 U/L (39-117); Bilirubin,Total 0.3 mg/dL (0.0-1.0); Blood Urea Nitrogen 14 mg/dl (8-23); Carbon Dioxide 19 mmol/L (22-30); Chloride 109 mmol/L (96-108); Glomerular Filtration Rate 69; Glucose 86 mg/dL (70-105); Lactate Dehydrogenase 180 U/L (94-250); Phosphorous 2.6 mg/dL (2.7-4.5); Triglycerides 77 mg/dl (<150); Uric Acid 3.4 mg/dL (2.5-8.0)
[2020-01-15] MEDS: PANTOPRAZOLE 40 MG TABLET PO SCH (07:29)
[2020-01-15] MEDS ORDERED: LABETALOL 5 MG/ML ML IV PRN (07:37)
--- NOTE | 2020-01-15 07:37 | Internal Med Progress Note ---
SUBJECTIVE Subjective Patient information: Note initiated : 01/15/20 at 7:32 am Service Date, if different from initiated Date: [] Patient: Maurisio Briceno 69 y/o M admitted on 01/14/20 for Stroke Symptoms. Chief Complaint: [] Interval history: Mr. Briceno is a 69 year old M History difficult to obtain from patient but per notes he was last seen normal last night. The sister noticed him to be altered this morning with some confusion and possibly some dysarthria. He had a history of stroke in the past with residual left-sided weakness. He had fallen out of bed this morning. He was evaluated in the ED and had an MRI which showed a stroke of the connell radiata. Case was discussed with stroke neurologist in [place] who recommended dual antiplatelet for 30 days as he is currently on Plavix. After the 30 days discontinue the aspirin. Also found to have an elevated creatinine. 01/14 Feeling a little better today. Slept well. No new complaints. Creatinine improved. Review of Systems: denies headache/fever/chills/nausea/vomiting/chest or abdominal pain/cough/dyspnea/diarrhea. Otherwise see above. Constitutional Vitals: Vital Signs Temp Pulse Resp BP Pulse Ox 97.8 F 50 L 11 L 144/65 97 01/15/20 07:00 01/15/20 06:02 01/15/20 07:00 01/15/20 07:00 01/15/20 07:00 Period Temp Pulse Resp BP Sys/Tsang Pulse Ox Last 24 Hr 97.8 F-100.1 F 50-105 0-24 85-187/59-124 88-100 Intake and Output 01/14/20 01/15/20 01/15/20 21:59 05:59 13:59 Intake Total 100 1578 Output Total 4 851 Balance 96 727 Weight 56.954 kg Intake & Output: Intake & Output 01/14/20 01/15/20 01/15/20 21:59 05:59 13:59 Intake Total 100 1578 Output Total 4 851 Balance 96 727 Weight 56.954 kg Intake: IV 898 Sodium Chloride 0.9% 1,000 ml @ 898 75 mls/hr IV .[id number] JARRED Rx#: [id number] Oral 100 680 Output: Void Amount 850 # of times incontinent of urine 4 1 Other: Meal Dinner Percent of Meal Consumed 100% Feeding Ability Assist with Tray Set Up Urine Appearance Clear Urine Color Bright Yellow Urine Odor Strong # Voids 1 Exam: General: Awake, No acute Distress Eyes/N/T: EOMI, Head/Neck: neck supple, b/l bruit CV: RRR, No murmurs, Pulm: Clear b/l, no wheezing/rhonchi/rales Abd: soft, nontender, +BS x4 Ext: no clubbing/cyanosis/edema Neuro: Drowsy but awakens to voice, left side hemiparesis of the lower extremity and hemiplegia of the upper extremity. Follows commands. skin: warm/dry OBJ DATA Labs CBC & Chem 7: 01/14/20 04:45 01/15/20 05:10 Labs: Abnormal Lab Results 01/15/20 01/14/20 01/14/20 05:10 04:45 04:45 RBC POC PT 11.3 L Chloride 109 H Carbon Dioxide 19 L Creatinine 1.6 H POC Creatinine 1.8 H Glucose 116 H POC Glucose 109 H Calcium 8.0 L Phosphorus 2.6 L Total Protein 5.5 L Globulin 2.0 L 01/14/20 04:45 RBC 4.61 L POC PT Chloride Carbon Dioxide Creatinine POC Creatinine Glucose POC Glucose Calcium Phosphorus Total Protein Globulin Meds: Medications Acetaminophen (Tylenol) 650 mg PO Q6HP PRN PRN Reason: Pain/Fever > 101 Last Admin: 01/14/20 20:00 Dose: 650 mg Documented by: Albuterol/Ipratropium (Duoneb) 3 ml NEB Q4HP PRN PRN Reason: Shortness Of Breath Atorvastatin Calcium (Lipitor) 80 mg PO [facility] Last Admin: 01/14/20 20:01 Dose: 80 mg Documented by: Baclofen (Lioresal) 10 mg PO BID [facility] Last Admin: 01/14/20 19:08 Dose: 10 mg Documented by: Clopidogrel Bisulfate (Plavix) 75 mg PO QDAY [facility] Docusate Sodium (Colace) 100 mg PO BIDP PRN PRN Reason: Constipation Enoxaparin Sodium (Lovenox) 40 mg SQ DAILY [facility] Potassium Chloride 40 meq/ (Dextrose) 520 mls @ 130 mls/hr IV UD PRN PRN Reason: Potassium < 3 Magnesium Sulfate (Magnesium Sulfate) 2 gm in 50 mls @ 50 mls/hr IV UD PRN PRN Reason: Magnesium </= 1.6 Sodium Chloride (Sodium Chloride 0.9%) 1,000 mls @ 75 mls/hr IV .[id number] [facility] Stop: 01/15/20 14:10 Last Admin: 01/15/20 00:51 Dose: 75 mls/hr Documented by: Labetalol HCl (Trandate) 0 mg IV Q2HP PRN PRN Reason: Hypertension Magnesium Hydroxide (Milk Of Magnesia) 30 ml PO DAILYP PRN PRN Reason: Constipation Melatonin (Melatonin 3mg Tablet) 9 mg PO [facility] Last Admin: 01/14/20 20:00 Dose: 9 mg Documented by: Ondansetron HCl (Zofran) 4 mg IV Q4HP PRN PRN Reason: Nausea And Vomiting Oxybutynin Chloride (Ditropan) 5 mg PO BID [facility] Last Admin: 01/14/20 20:00 Dose: 5 mg Documented by: Oxycodone HCl (Roxicodone) 10 mg PO TIDP PRN; Protocol PRN Reason: Per Pain Protocol Last Admin: 01/15/20 04:32 Dose: 10 mg Documented by: Pantoprazole Sodium (Protonix) 40 mg PO ACB [facility] Last Admin: 01/15/20 07:29 Dose: 40 mg Documented by: Polyethylene Glycol (Miralax) 17 gm PO DAILYP PRN PRN Reason: Constipation Potassium Chloride (Kdur) 40 meq PO UD PRN PRN Reason: Potssium is 3-3.5 Potassium Chloride (Kdur) 40 meq PO UD PRN PRN Reason: Potassium < 3 Pramipexole Dihydrochloride (Mirapex) 0.75 mg PO TID [facility] Last Admin: 01/14/20 20:00 Dose: 0.75 mg Documented by: Senna (Senokot) 2 tab PO DAILYP PRN PRN Reason: Constipation Sertraline HCl (Zoloft) 150 mg PO DAILY [facility] Sodium Chloride (Saline Flush) 10 ml IV Q8 [facility] Last Admin: 01/15/20 05:29 Dose: 10 ml Documented by: Trazodone HCl (Desyrel) 200 mg PO HS [facility] Last Admin: 01/14/20 20:54 Dose: 200 mg Documented by: A/P Narrative A/P Narrative: Assessment: *Acute CVA left connell radiata and frontal parietal boundary: -chronic occlusions b/l IC arteries *h/o CVA w/left-side weakness arm>Leg: on plavix *MARKUS ok CKD II: improved *Depression: *HTN: home lisinopril 10mg *GERD: *Tobacco abuse: * Plan: -ASA/Plavix for 30 days then d/c ASA per stroke neurologist -Increased home statin -echo -Permissive HTN, restart lisinopril tomorrow -f/u with Dr. De La Cruz -pt/ot -CM for placement -Smoking cessation counseling -ppx: lovenox/PPI Time Spent With Patient Time: Total time spent is greater than 50% in coordination of care (as documented) at patient's floor/unit and/or counseling patient: QUALITY Stroke Onset of Symptoms Date: 01/14/20 Onset of Symptoms Time: 21:00 Symptom Onset Unknown: Yes VTE Deep Vein Thrombosis/Pulmonary Embolism Present on Admission: No
[2020-01-15] MEDS: SERTRALINE 50 MG TABLET PO SCH (10:25)
[2020-01-15] MEDS: OXYBUTYNIN CHLORIDE 5 MG TABLET PO SCH ×2 (10:25→20:11)
[2020-01-15] MEDS: PRAMIPEXOLE 0.25 MG TABLET PO SCH ×3 (10:25→20:11)
[2020-01-15] MEDS: ENOXAPARIN 40 MG/0.4 ML SYRINGE SQ SCH (10:25)
[2020-01-15] MEDS: DOCUSATE SODIUM 100 MG CAPSULE PO PRN (10:25)
[2020-01-15] MEDS: CLOPIDOGREL 75 MG TABLET PO SCH (10:25)
[2020-01-15] MEDS: BACLOFEN 10 MG TABLET PO SCH ×2 (10:25→20:11)
[2020-01-15] MEDS: SENNOSIDES 1 TABLET PO PRN (10:26)
[2020-01-15] MEDS: ASPIRIN 81 MG TAB.CHEW CHEWED SCH (10:26)
[2020-01-15] MEDS: traZODone HCL 100 MG TABLET PO SCH (20:11)
[2020-01-15] MEDS: MELATONIN 3 MG TABLET PO SCH (20:11)
[2020-01-15] MEDS: ATORVASTATIN 20 MG TABLET PO SCH (20:11)
[2020-01-16] MEDS: 0.9 % SODIUM CHLORIDE 10 ML SYRINGE IV SCH ×3 (05:52→20:50)
[2020-01-16] MEDS: PANTOPRAZOLE 40 MG TABLET PO SCH (07:35)
[2020-01-16] MEDS: OXYBUTYNIN CHLORIDE 5 MG TABLET PO SCH ×2 (08:40→20:50)
[2020-01-16] MEDS: SENNOSIDES 1 TABLET PO PRN (08:40)
[2020-01-16] MEDS: ASPIRIN 81 MG TAB.CHEW CHEWED SCH (08:40)
[2020-01-16] MEDS: DOCUSATE SODIUM 100 MG CAPSULE PO PRN ×2 (08:40→20:48)
[2020-01-16] MEDS: PRAMIPEXOLE 0.25 MG TABLET PO SCH ×3 (08:40→20:49)
[2020-01-16] MEDS: CLOPIDOGREL 75 MG TABLET PO SCH (08:41)
[2020-01-16] MEDS: ENOXAPARIN 40 MG/0.4 ML SYRINGE SQ SCH (08:41)
[2020-01-16] MEDS: SERTRALINE 50 MG TABLET PO SCH (08:41)
[2020-01-16] MEDS: BACLOFEN 10 MG TABLET PO SCH ×2 (08:41→20:50)
[2020-01-16] MEDS: oxyCODONE HCL 5 MG TABLET PO PRN (10:25)
[2020-01-16] MEDS: buPROPion 150 MG TAB.SR.12H PO SCH (11:49)
[2020-01-16] MEDS: MAGNESIUM HYDROXIDE 30 ML ORAL.SUSP PO PRN (11:49)
--- NOTE | 2020-01-16 15:08 | Internal Med Progress Note ---
SUBJECTIVE Subjective Patient information: Note initiated : 01/16/20 at 2:55 pm Service Date, if different from initiated Date: [] Patient: Maurisio Briceno 69 y/o M admitted on 01/14/20 for Stroke Symptoms. Chief Complaint: [] Interval history: Mr. Briceno is a 69 year old M History difficult to obtain from patient but per notes he was last seen normal last night. The sister noticed him to be altered this morning with some confusion and possibly some dysarthria. He had a history of stroke in the past with residual left-sided weakness. He had fallen out of bed this morning. He was evaluated in the ED and had an MRI which showed a stroke of the connell radiata. Case was discussed with stroke neurologist in [place] who recommended dual antiplatelet for 30 days as he is currently on Plavix. After the 30 days discontinue the aspirin. Also found to have an elevated creatinine. 01/14 Feeling a little better today. Slept well. No new complaints. Creatinine improved. 01/15 Pt does not have complaints. Denies headache, dizziness, nausea, vomiting, chest pain or shortness of breath. Denies new or worsening weakness of left leg and arm. His request to go outside for smoking was declined. For which he wanted to leave AMA. After explanation, he changed his mind. Bupropion was prescribed. PT OT ST are continued He will possibly be discharged to rehab on Saturday Review of Systems: denies headache/fever/chills/nausea/vomiting/chest or abdominal pain/cough/dyspnea/diarrhea. Otherwise see above. Constitutional Vitals: Vital Signs Temp Pulse Resp BP Pulse Ox 98.0 F 70 14 118/87 95 01/16/20 12:03 01/16/20 12:03 01/16/20 12:03 01/16/20 12:03 01/16/20 12:03 Period Temp Pulse Resp BP Sys/Tsang Pulse Ox Last 24 Hr 98.0 F-98.9 F 54-73 7-15 85-160/47-91 94-98 Intake and Output 01/16/20 01/16/20 01/16/20 05:59 13:59 21:59 Intake Total 630 50 Output Total 302 152 Balance 328 -102 Intake & Output: Intake & Output 01/16/20 01/16/20 01/16/20 05:59 13:59 21:59 Intake Total 630 50 Output Total 302 152 Balance 328 -102 Intake: Oral 630 50 Output: Void Amount 300 150 # of times incontinent of urine 2 2 Other: Meal Lunch Percent of Meal Consumed 75% Feeding Ability Assist with Tray Set Up Urine Appearance Clear Clear Urine Color Bright Yellow Bright Yellow Urine Odor Strong Exam: General: Awake, No acute Distress Eyes/N/T: EOMI, Head/Neck: neck supple, b/l bruit CV: RRR, No murmurs, Pulm: Clear b/l, no wheezing/rhonchi/rales Abd: soft, nontender, +BS x4 Ext: no clubbing/cyanosis/edema Neuro: alert and awake. Can answer questions. strength: 2-3/5 in left lower extremity and 0-1/5 in the upper extremity. sensation symmetrical. skin: warm/dry OBJ DATA Labs CBC & Chem 7: 01/14/20 04:45 01/15/20 05:10 Labs: Abnormal Lab Results 01/15/20 01/14/20 01/14/20 05:10 04:45 04:45 RBC POC PT 11.3 L Chloride 109 H Carbon Dioxide 19 L Creatinine 1.6 H POC Creatinine 1.8 H Glucose 116 H POC Glucose 109 H Calcium 8.0 L Phosphorus 2.6 L Total Protein 5.5 L Globulin 2.0 L 01/14/20 04:45 RBC 4.61 L POC PT Chloride Carbon Dioxide Creatinine POC Creatinine Glucose POC Glucose Calcium Phosphorus Total Protein Globulin Meds: Medications Acetaminophen (Tylenol) 650 mg PO Q6HP PRN PRN Reason: Pain/Fever > 101 Last Admin: 01/14/20 20:00 Dose: 650 mg Documented by: Albuterol/Ipratropium (Duoneb) 3 ml NEB Q4HP PRN PRN Reason: Shortness Of Breath Aspirin (Aspirin) 81 mg CHEWED DAILY [facility] Last Admin: 01/16/20 08:40 Dose: 81 mg Documented by: Atorvastatin Calcium (Lipitor) 80 mg PO HS [facility] Last Admin: 01/15/20 20:11 Dose: 80 mg Documented by: Baclofen (Lioresal) 10 mg PO BID [facility] Last Admin: 01/16/20 08:41 Dose: 10 mg Documented by: Bupropion HCl (Wellbutrin Sr) 150 mg PO DAILY [facility] Stop: 01/18/20 09:01 Last Admin: 01/16/20 11:49 Dose: 150 mg Documented by: Bupropion HCl (Wellbutrin Sr) 150 mg PO BID [facility] Clopidogrel Bisulfate (Plavix) 75 mg PO QDAY [facility] Last Admin: 01/16/20 08:41 Dose: 75 mg Documented by: Docusate Sodium (Colace) 100 mg PO BIDP PRN PRN Reason: Constipation Last Admin: 01/16/20 08:40 Dose: 100 mg Documented by: Enoxaparin Sodium (Lovenox) 40 mg SQ DAILY [facility] Last Admin: 01/16/20 08:41 Dose: 40 mg Documented by: Potassium Chloride 40 meq/ (Dextrose) 520 mls @ 130 mls/hr IV UD PRN PRN Reason: Potassium < 3 Magnesium Sulfate (Magnesium Sulfate) 2 gm in 50 mls @ 50 mls/hr IV UD PRN PRN Reason: Magnesium </= 1.6 Labetalol HCl (Trandate) 0 mg IV Q2HP PRN PRN Reason: Hypertension Magnesium Hydroxide (Milk Of Magnesia) 30 ml PO DAILYP PRN PRN Reason: Constipation Last Admin: 01/16/20 11:49 Dose: 30 ml Documented by: Melatonin (Melatonin 3mg Tablet) 9 mg PO HS [facility] Last Admin: 01/15/20 20:11 Dose: 9 mg Documented by: Ondansetron HCl (Zofran) 4 mg IV Q4HP PRN PRN Reason: Nausea And Vomiting Oxybutynin Chloride (Ditropan) 5 mg PO BID [facility] Last Admin: 01/16/20 08:40 Dose: 5 mg Documented by: Oxycodone HCl (Roxicodone) 10 mg PO TIDP PRN; Protocol PRN Reason: Per Pain Protocol Last Admin: 01/16/20 10:25 Dose: 10 mg Documented by: Pantoprazole Sodium (Protonix) 40 mg PO ACB [facility] Last Admin: 01/16/20 07:35 Dose: 40 mg Documented by: Polyethylene Glycol (Miralax) 17 gm PO DAILYP PRN PRN Reason: Constipation Potassium Chloride (Kdur) 40 meq PO UD PRN PRN Reason: Potssium is 3-3.5 Potassium Chloride (Kdur) 40 meq PO UD PRN PRN Reason: Potassium < 3 Pramipexole Dihydrochloride (Mirapex) 0.75 mg PO TID [facility] Last Admin: 01/16/20 08:40 Dose: 0.75 mg Documented by: Piter (Senokot) 2 tab PO DAILYP PRN PRN Reason: Constipation Last Admin: 01/16/20 08:40 Dose: 2 tab Documented by: Sertraline HCl (Zoloft) 150 mg PO DAILY [facility] Last Admin: 01/16/20 08:41 Dose: 150 mg Documented by: Sodium Chloride (Saline Flush) 10 ml IV Q8 [facility] Last Admin: 01/16/20 05:52 Dose: 10 ml Documented by: Trazodone HCl (Desyrel) 200 mg PO HS [facility] Last Admin: 01/15/20 20:11 Dose: 200 mg Documented by: A/P Narrative A/P Narrative: Assessment: *Acute CVA left connell radiata and frontal parietal boundary: -chronic occlusions b/l IC arteries *h/o CVA w/left-side weakness arm>Leg: has been on plavix *MARKUS ok CKD II: improved/resolved *Depression: *HTN: home lisinopril 10mg *GERD: *Tobacco abuse: Plan: -ASA/Plavix for 30 days then d/c ASA per stroke neurologist -Increased home statin -echo -BP is normotensive, restart lisinopril if needed. -f/u with Dr. De La Cruz -pt/ot/st -CM for placement -Smoking cessation counseling. started bupropion 150mg daily x 3 days and then 150mg bid x 7 weeks. -ppx: lovenox/PPI Deposition: Rehab -possibly on Saturday Time Spent With Patient Time: Total time spent is greater than 50% in coordination of care (as documented) at patient's floor/unit and/or counseling patient: QUALITY Stroke Onset of Symptoms Date: 01/14/20 Onset of Symptoms Time: 21:00 Symptom Onset Unknown: Yes VTE Deep Vein Thrombosis/Pulmonary Embolism Present on Admission: No
[2020-01-16] MEDS: ACETAMINOPHEN 325 MG TABLET PO PRN (16:23)
[2020-01-16 16:54] LABS: Basophils # (Auto) 0.03 K/mcL (0.00-0.30); Basophils % (Auto) 0.4 % (0.0-2.0); Eosinophils # (Auto) 0.21 K/mcL (0.00-0.70); Eosinophils % (Auto) 2.8 % (0.0-7.0); Granulocytes % (Auto) 64.2 % (38.0-78.0); Hematocrit 40.5 % (40.1-51.0); Hemoglobin 13.7 g/dL (13.7-17.5); Lymphocytes % (Auto) 26.7 % (15.5-49.0); Mean Corpuscular HGB Conc 33.8 g/dL (31.0-36.0); Mean Platelet Volume 10.6 fL (7.4-10.4); Monocytes # (Auto) 0.44 K/mcL (0.10-0.90); Monocytes % (Auto) 5.9 % (1.0-12.0); RBC 4.31 M/mcL (4.63-6.08); Red Cell Distribution Width 13.1 % (11.5-14.5); WBC 7.5 K/mcL (4.50-11.00)
[2020-01-16 17:00] LABS: Platelet Count 137 K/mcL (140-440)
[2020-01-16 17:12] LABS: ALT/SGPT 7 U/l (0-40); AST/SGOT 14 U/l (0-37); Alkaline Phosphatase 62 U/L (39-117); Bilirubin,Total 0.2 mg/dL (0.0-1.0); Blood Urea Nitrogen 14 mg/dl (8-23); Calcium 8.6 mg/dl (8.6-10.4); Carbon Dioxide 24 mmol/L (22-30); Chloride 103 mmol/L (96-108); Glomerular Filtration Rate 62; Glucose 100 mg/dL (70-105)
[2020-01-16] MEDS: ATORVASTATIN 20 MG TABLET PO SCH (20:49)
[2020-01-16] MEDS: traZODone HCL 100 MG TABLET PO SCH (20:50)
[2020-01-16] MEDS: MELATONIN 3 MG TABLET PO SCH (20:50)
[2020-01-17 05:28] LABS: Basophils # (Auto) 0.03 K/mcL (0.00-0.30); Basophils % (Auto) 0.5 % (0.0-2.0); Eosinophils # (Auto) 0.21 K/mcL (0.00-0.70); Eosinophils % (Auto) 3.4 % (0.0-7.0); Granulocytes % (Auto) 63.4 % (38.0-78.0); Hematocrit 38.7 % (40.1-51.0); Hemoglobin 13.3 g/dL (13.7-17.5); Lymphocytes # (Auto) 1.54 K/mcL (1.50-4.80); Lymphocytes % (Auto) 25.2 % (15.5-49.0); Mean Cell Volume 92.4 fL (80.0-100.0); Mean Corpuscular HGB Conc 34.4 g/dL (31.0-36.0); Mean Platelet Volume 10.6 fL (7.4-10.4); Monocytes # (Auto) 0.46 K/mcL (0.10-0.90); Monocytes % (Auto) 7.5 % (1.0-12.0); RBC 4.19 M/mcL (4.63-6.08); Red Cell Distribution Width 13.2 % (11.5-14.5); WBC 6.1 K/mcL (4.50-11.00)
[2020-01-17 05:40] LABS: Platelet Count 132 K/mcL (140-440)
[2020-01-17 05:43] LABS: ALT/SGPT 7 U/l (0-40); AST/SGOT 13 U/l (0-37); Albumin 3.8 gm/dL (3.2-5.2); Albumin/Globulin Ratio 1.8 (1.0-2.3); Alkaline Phosphatase 53 U/L (39-117); Bilirubin,Total 0.4 mg/dL (0.0-1.0); Blood Urea Nitrogen 15 mg/dl (8-23); Calcium 8.6 mg/dl (8.6-10.4); Carbon Dioxide 25 mmol/L (22-30); Chloride 105 mmol/L (96-108); Globulin 2.1 gm/dL (2.2-3.7); Glomerular Filtration Rate 77; Glucose 91 mg/dL (70-105)
[2020-01-17] MEDS: 0.9 % SODIUM CHLORIDE 10 ML SYRINGE IV SCH ×4 (05:44→21:44)
[2020-01-17] MEDS: PANTOPRAZOLE 40 MG TABLET PO SCH (07:06)
[2020-01-17] MEDS: SERTRALINE 50 MG TABLET PO SCH (08:07)
[2020-01-17] MEDS: DOCUSATE SODIUM 100 MG CAPSULE PO PRN ×2 (08:07→20:24)
[2020-01-17] MEDS: MAGNESIUM HYDROXIDE 30 ML ORAL.SUSP PO PRN (08:07)
[2020-01-17] MEDS: CLOPIDOGREL 75 MG TABLET PO SCH (08:07)
[2020-01-17] MEDS: ENOXAPARIN 40 MG/0.4 ML SYRINGE SQ SCH (08:07)
[2020-01-17] MEDS: SENNOSIDES 1 TABLET PO PRN (08:07)
[2020-01-17] MEDS: ASPIRIN 81 MG TAB.CHEW CHEWED SCH (08:07)
[2020-01-17] MEDS: buPROPion 150 MG TAB.SR.12H PO SCH (08:09)
[2020-01-17] MEDS: OXYBUTYNIN CHLORIDE 5 MG TABLET PO SCH ×2 (08:09→20:23)
[2020-01-17] MEDS: BACLOFEN 10 MG TABLET PO SCH ×2 (08:09→20:23)
[2020-01-17] MEDS: PRAMIPEXOLE 0.25 MG TABLET PO SCH ×3 (08:37→20:24)
--- NOTE | 2020-01-17 10:50 | Internal Med Progress Note ---
SUBJECTIVE Subjective Patient information: Note initiated : 01/17/20 at 10:40 am Service Date, if different from initiated Date: [] Patient: Maurisio Briceno a 69 y/o M admitted on 01/14/20 for Stroke Symptoms. Chief Complaint: [] Interval history: Mr. Briceno is a 69 year old M History difficult to obtain from patient but per notes he was last seen normal last night. The sister noticed him to be altered this morning with some confusion and possibly some dysarthria. He had a history of stroke in the past with residual left-sided weakness. He had fallen out of bed this morning. He was evaluated in the ED and had an MRI which showed a stroke of the connell radiata. Case was discussed with stroke neurologist in [place] who recommended dual antiplatelet for 30 days as he is currently on Plavix. After the 30 days discontinue the aspirin. Also found to have an elevated creatinine. 01/14 Feeling a little better today. Slept well. No new complaints. Creatinine improved. 01/15 Pt does not have complaints. Denies headache, dizziness, nausea, vomiting, chest pain or shortness of breath. Denies new or worsening weakness of left leg and arm. His request to go outside for smoking was declined. For which he wanted to leave AMA. After explanation, he changed his mind. Bupropion was prescribed. PT OT ST are continued He will possibly be discharged to rehab on Tuesday 01/16 Patient feels fine. Does not have any new complaints Patient asks for oxycodone 10 mg 3 times daily which is his home medication. He is also now on trazodone 200 mg at bedtime which is his blood culture home medication. I feel it is too much for him to take the two meds. But pt and still want them. pulse ox ordered. Review of Systems: denies headache/fever/chills/nausea/vomiting/chest or abdominal pain/cough/dyspnea/diarrhea. Otherwise see above. Constitutional Vitals: Vital Signs Temp Pulse Resp BP Pulse Ox 98.3 F 66 17 94/56 93 01/17/20 08:01 01/17/20 10:01 01/17/20 10:01 01/17/20 10:01 01/17/20 10:01 Period Temp Pulse Resp BP Sys/Tsang Pulse Ox Last 24 Hr 98.0 F-99.4 F 47-75 8-19 77-156/50-92 93-98 Intake and Output 01/16/20 01/17/20 01/17/20 21:59 05:59 13:59 Intake Total 640 100 240 Output Total 650 101 276 Weight 55.508 kg Intake & Output: Intake & Output 01/16/20 01/17/20 01/17/20 21:59 05:59 13:59 Intake Total 640 100 240 Output Total 650 101 276 Weight 55.508 kg Intake: Nourishment/Supplement quantity 240 240 (ml) Oral 400 100 Output: Void Amount 650 100 275 # of times incontinent of urine 1 1 Other: Meal Dinner Breakfast Percent of Meal Consumed 50% 50% Feeding Ability Assist with Tray Set Up Assist with Tray Set Up Nourishment/Supplement name Ensure Urine Appearance Clear Clear Clear Urine Color Straw Straw Bright Yellow Urine Odor Normal Normal Stool Size Large Stool Color Brown Stool Consistency Dry and Hard Formed Exam: General: Awake, No acute Distress Eyes/N/T: EOMI, Head/Neck: neck supple, b/l bruit CV: RRR, No murmurs, Pulm: Clear b/l, no wheezing/rhonchi/rales Abd: soft, nontender, +BS x4 Ext: no clubbing/cyanosis/edema Neuro: alert and awake. Can answer questions. strength: 2-3/5 in left lower extremity and 0-1/5 in the upper extremity. sensation symmetrical. skin: warm/dry OBJ DATA Labs CBC & Chem 7: 01/17/20 04:13 01/17/20 04:13 Labs: Abnormal Lab Results 01/17/20 01/17/20 01/16/20 04:13 04:13 15:15 RBC 4.19 L Hgb 13.3 L Hct 38.7 L Plt Count 132 L MPV 10.6 H Chloride Carbon Dioxide Calcium Phosphorus Total Protein Globulin 2.1 L 2.0 L 01/16/20 01/15/20 15:15 05:10 RBC 4.31 L Hgb Hct Plt Count 137 L MPV 10.6 H Chloride 109 H Carbon Dioxide 19 L Calcium 8.0 L Phosphorus 2.6 L Total Protein 5.5 L Globulin 2.0 L Meds: Medications Acetaminophen (Tylenol) 650 mg PO Q6HP PRN PRN Reason: Pain/Fever > 101 Last Admin: 01/16/20 16:23 Dose: 650 mg Documented by: Albuterol/Ipratropium (Duoneb) 3 ml NEB Q4HP PRN PRN Reason: Shortness Of Breath Aspirin (Aspirin) 81 mg CHEWED DAILY [facility] Last Admin: 01/17/20 08:07 Dose: 81 mg Documented by: Atorvastatin Calcium (Lipitor) 80 mg PO [facility] Last Admin: 01/16/20 20:49 Dose: 80 mg Documented by: Baclofen (Lioresal) 10 mg PO BID [facility] Last Admin: 01/17/20 08:09 Dose: 10 mg Documented by: Bupropion HCl (Wellbutrin Sr) 150 mg PO DAILY [facility] Stop: 01/18/20 09:01 Last Admin: 01/17/20 08:09 Dose: 150 mg Documented by: Bupropion HCl (Wellbutrin Sr) 150 mg PO BID [facility] Clopidogrel Bisulfate (Plavix) 75 mg PO QDAY [facility] Last Admin: 01/17/20 08:07 Dose: 75 mg Documented by: Docusate Sodium (Colace) 100 mg PO BIDP PRN PRN Reason: Constipation Last Admin: 01/17/20 08:07 Dose: 100 mg Documented by: Enoxaparin Sodium (Lovenox) 40 mg SQ DAILY [facility] Last Admin: 01/17/20 08:07 Dose: 40 mg Documented by: Potassium Chloride 40 meq/ (Dextrose) 520 mls @ 130 mls/hr IV UD PRN PRN Reason: Potassium < 3 Magnesium Sulfate (Magnesium Sulfate) 2 gm in 50 mls @ 50 mls/hr IV UD PRN PRN Reason: Magnesium </= 1.6 Sodium Chloride (Sodium Chloride 0.9%) 1,000 mls @ 50 mls/hr IV .Q20H [facility] Labetalol HCl (Trandate) 0 mg IV Q2HP PRN PRN Reason: Hypertension Magnesium Hydroxide (Milk Of Magnesia) 30 ml PO DAILYP PRN PRN Reason: Constipation Last Admin: 01/16/20 11:49 Dose: 30 ml Documented by: Melatonin (Melatonin 3mg Tablet) 9 mg PO [facility] Last Admin: 01/16/20 20:50 Dose: 9 mg Documented by: Ondansetron HCl (Zofran) 4 mg IV Q4HP PRN PRN Reason: Nausea And Vomiting Oxybutynin Chloride (Ditropan) 5 mg PO BID [facility] Last Admin: 01/17/20 08:09 Dose: 5 mg Documented by: Oxycodone HCl (Roxicodone) 10 mg PO TIDP PRN; Protocol PRN Reason: Per Pain Protocol Last Admin: 01/16/20 10:25 Dose: 10 mg Documented by: Pantoprazole Sodium (Protonix) 40 mg PO ACB [facility] Last Admin: 01/17/20 07:06 Dose: 40 mg Documented by: Polyethylene Glycol (Miralax) 17 gm PO DAILYP PRN PRN Reason: Constipation Potassium Chloride (Kdur) 40 meq PO UD PRN PRN Reason: Potssium is 3-3.5 Potassium Chloride (Kdur) 40 meq PO UD PRN PRN Reason: Potassium < 3 Pramipexole Dihydrochloride (Mirapex) 0.75 mg PO TID [facility] Last Admin: 01/17/20 08:37 Dose: 0.75 mg Documented by: Senna (Senokot) 2 tab PO DAILYP PRN PRN Reason: Constipation Last Admin: 01/17/20 08:07 Dose: 2 tab Documented by: Sertraline HCl (Zoloft) 150 mg PO DAILY [facility] Last Admin: 01/17/20 08:07 Dose: 150 mg Documented by: Sodium Chloride (Saline Flush) 10 ml IV Q8 [facility] Last Admin: 01/17/20 05:44 Dose: 10 ml Documented by: Trazodone HCl (Desyrel) 200 mg PO HS [facility] Last Admin: 01/16/20 20:50 Dose: 200 mg Documented by: A/P Narrative A/P Narrative: Assessment: *Acute CVA left connell radiata and frontal parietal boundary: -chronic occlusions b/l IC arteries *h/o CVA w/left-side weakness arm>Leg: has been on plavix *MARKUS ok CKD II: improved/resolved *Depression: *HTN: home lisinopril 10mg *GERD: *Tobacco abuse: Plan: -ASA/Plavix for 30 days then d/c ASA per stroke neurologist -Increased home statin -echo -BP is normotensive, lisinopril is on hold. -f/u with Dr. De La Cruz -pt/ot/st -CM for placement -Smoking cessation counseling. started bupropion 150mg daily x 3 days and then 1 50mg bid x 7 weeks. -ppx: lovenox/PPI Deposition: Rehab -possibly on Saturday Time Spent With Patient Time: Total time spent is greater than 50% in coordination of care (as documented) at patient's floor/unit and/or counseling patient: QUALITY Stroke Onset of Symptoms Date: 01/14/20 Onset of Symptoms Time: 21:00 Symptom Onset Unknown: Yes VTE Deep Vein Thrombosis/Pulmonary Embolism Present on Admission: No
[2020-01-17] MEDS: 0.9 % SODIUM CHLORIDE 1,000 ML IV SCH (11:05)
[2020-01-17] MEDS: ACETAMINOPHEN 325 MG TABLET PO PRN ×2 (11:23→20:25)
[2020-01-17] MEDS: traZODone HCL 100 MG TABLET PO SCH (20:22)
[2020-01-17] MEDS: ATORVASTATIN 20 MG TABLET PO SCH (20:23)
[2020-01-17] MEDS: MELATONIN 3 MG TABLET PO SCH (20:24)
[2020-01-18 06:24] LABS: Basophils # (Auto) 0.02 K/mcL (0.00-0.30); Basophils % (Auto) 0.3 % (0.0-2.0); Eosinophils # (Auto) 0.22 K/mcL (0.00-0.70); Eosinophils % (Auto) 3.8 % (0.0-7.0); Granulocytes % (Auto) 62.8 % (38.0-78.0); Hematocrit 38.9 % (40.1-51.0); Lymphocytes # (Auto) 1.51 K/mcL (1.50-4.80); Lymphocytes % (Auto) 25.8 % (15.5-49.0); Mean Cell Volume 93.7 fL (80.0-100.0); Mean Corpuscular HGB Conc 33.4 g/dL (31.0-36.0); Mean Platelet Volume 10.9 fL (7.4-10.4); Monocytes # (Auto) 0.43 K/mcL (0.10-0.90); Monocytes % (Auto) 7.3 % (1.0-12.0); Platelet Count 142 K/mcL (140-440); RBC 4.15 M/mcL (4.63-6.08); Red Cell Distribution Width 13.2 % (11.5-14.5); WBC 5.9 K/mcL (4.50-11.00)
[2020-01-18 06:49] LABS: ALT/SGPT 9 U/l (0-40); AST/SGOT 18 U/l (0-37); Bilirubin,Total 0.2 mg/dL (0.0-1.0); Blood Urea Nitrogen 16 mg/dl (8-23); Calcium 8.5 mg/dl (8.6-10.4); Carbon Dioxide 22 mmol/L (22-30); Chloride 107 mmol/L (96-108); Glucose 91 mg/dL (70-105)
[2020-01-18 06:50] LABS: Albumin 3.6 gm/dL (3.2-5.2); Albumin/Globulin Ratio 1.6 (1.0-2.3); Alkaline Phosphatase 55 U/L (39-117); Globulin 2.2 gm/dL (2.2-3.7); Glomerular Filtration Rate 77
[2020-01-18] MEDS: PANTOPRAZOLE 40 MG TABLET PO SCH (07:19)
[2020-01-18] MEDS: 0.9 % SODIUM CHLORIDE 1,000 ML IV SCH (07:20)
[2020-01-18] MEDS: 0.9 % SODIUM CHLORIDE 10 ML SYRINGE IV SCH (07:21)
[2020-01-18] MEDS: ASPIRIN 81 MG TAB.CHEW CHEWED SCH (08:49)
[2020-01-18] MEDS: buPROPion 150 MG TAB.SR.12H PO SCH (08:49)
[2020-01-18] MEDS: SERTRALINE 50 MG TABLET PO SCH (08:49)
[2020-01-18] MEDS: CLOPIDOGREL 75 MG TABLET PO SCH (08:49)
[2020-01-18] MEDS: ENOXAPARIN 40 MG/0.4 ML SYRINGE SQ SCH (08:49)
[2020-01-18] MEDS: OXYBUTYNIN CHLORIDE 5 MG TABLET PO SCH (08:49)
[2020-01-18] MEDS: PRAMIPEXOLE 0.25 MG TABLET PO SCH (08:49)
[2020-01-18] MEDS: BACLOFEN 10 MG TABLET PO SCH (08:50)
[2020-01-18] MEDS: ACETAMINOPHEN 325 MG TABLET PO PRN (08:50)
[2020-01-18] MEDS: SENNOSIDES 1 TABLET PO PRN (08:51)
[2020-01-18] MEDS: DOCUSATE SODIUM 100 MG CAPSULE PO PRN (09:12)
--- NOTE | 2020-01-18 09:46 | Internal Med Progress Note ---
SUBJECTIVE Subjective Patient information: Note initiated : 01/18/20 at 9:42 am Service Date, if different from initiated Date: [] Patient: Maurisio Briceno a 69 y/o M admitted on 01/14/20 for Stroke Symptoms. Chief Complaint: [] Interval history: Mr. Briceno is a 69 year old M History difficult to obtain from patient but per notes he was last seen normal last night. The sister noticed him to be altered this morning with some confusion and possibly some dysarthria. He had a history of stroke in the past with residual left-sided weakness. He had fallen out of bed this morning. He was evaluated in the ED and had an MRI which showed a stroke of the connell radiata. Case was discussed with stroke neurologist in [place] who recommended dual antiplatelet for 30 days as he is currently on Plavix. After the 30 days discontinue the aspirin. Also found to have an elevated creatinine. 01/14 Feeling a little better today. Slept well. No new complaints. Creatinine improved. 01/15 Pt does not have complaints. Denies headache, dizziness, nausea, vomiting, chest pain or shortness of breath. Denies new or worsening weakness of left leg and arm. His request to go outside for smoking was declined. For which he wanted to leave AMA. After explanation, he changed his mind. Bupropion was prescribed. PT OT ST are continued He will possibly be discharged to rehab on Tuesday 01/16 Patient feels fine. Does not have any new complaints Patient asks for oxycodone 10 mg 3 times daily which is his home medication. He is also now on trazodone 200 mg at bedtime which is his blood culture home medication. I feel it is too much for him to take the two meds. But pt and still want them. pulse ox ordered. 01/17 Patient is relatively stable. He feels fine and does not have any new complaints. His blood pressure was found to be soft at night. Decrease the trazodone to 100 mg from 200 mg. Since he is on bupropion for smoking cessation, I decreased sertraline to 100mg daily from 150mg daily. Continue PT OT, awaiting for placement Review of Systems: denies headache/fever/chills/nausea/vomiting/chest or abdominal pain/cough/dyspnea/diarrhea. Otherwise see above. Constitutional Vitals: Vital Signs Temp Pulse Resp BP Pulse Ox 99 F 81 19 140/84 96 01/18/20 08:01 01/18/20 08:01 01/18/20 08:01 01/18/20 08:01 01/18/20 08:01 Period Temp Pulse Resp BP Sys/Tsang Pulse Ox Last 24 Hr 97.9 F-99 F 52-81 9-20 76-155/46-84 93-99 Intake and Output 01/17/20 01/18/20 01/18/20 21:59 05:59 13:59 Intake Total 721 944 0144 Output Total 176 3 350 Balance 64 197 980 Weight 55.962 kg Intake & Output: Intake & Output 01/17/20 01/18/20 01/18/20 21:59 05:59 13:59 Intake Total 811 032 5826 Output Total 176 3 350 Balance 64 197 980 Weight 55.962 kg Intake: Nourishment/Supplement quantity 240 (ml) IV 1000 Sodium Chloride 0.9% 1,000 ml @ 1000 50 mls/hr IV .Q20H [facility] Rx#: [id number] Oral 200 330 Output: Void Amount 175 350 # of times incontinent of urine 1 3 Other: Meal Nourishment/Supplement Breakfast Percent of Meal Consumed 50% 100% Feeding Ability Independent Assist with Tray Set Up Nourishment/Supplement name Ensure Urine Appearance Clear Clear Urine Color Straw Straw Urine Odor Normal Normal Stool Size Large Stool Color Brown Stool Consistency Dry and Hard Formed Exam: General: Awake, No acute Distress Eyes/N/T: EOMI, Head/Neck: neck supple, b/l bruit CV: RRR, No murmurs, Pulm: Clear b/l, no wheezing/rhonchi/rales Abd: soft, nontender, +BS x4 Ext: no clubbing/cyanosis/edema Neuro: alert and awake. Can answer questions. strength: 2-3/5 in left lower extremity and 0-1/5 in the upper extremity. sensation symmetrical. skin: warm/dry OBJ DATA Labs CBC & Chem 7: 01/18/20 05:10 01/18/20 05:10 Labs: Abnormal Lab Results 01/18/20 01/18/20 01/17/20 05:10 05:10 04:13 RBC 4.15 L Hgb 13.0 L Hct 38.9 L Plt Count MPV 10.9 H Calcium 8.5 L Total Protein 5.8 L Globulin 2.1 L 01/17/20 01/16/20 01/16/20 04:13 15:15 15:15 RBC 4.19 L 4.31 L Hgb 13.3 L Hct 38.7 L Plt Count 132 L 137 L MPV 10.6 H 10.6 H Calcium Total Protein Globulin 2.0 L Meds: Medications Acetaminophen (Tylenol) 650 mg PO Q6HP PRN PRN Reason: Pain/Fever > 101 Last Admin: 01/18/20 08:50 Dose: 650 mg Documented by: Albuterol/Ipratropium (Duoneb) 3 ml NEB Q4HP PRN PRN Reason: Shortness Of Breath Aspirin (Aspirin) 81 mg CHEWED DAILY [facility] Last Admin: 01/18/20 08:49 Dose: 81 mg Documented by: Atorvastatin Calcium (Lipitor) 80 mg PO HS [facility] Last Admin: 01/17/20 20:23 Dose: 80 mg Documented by: Baclofen (Lioresal) 10 mg PO BID [facility] Last Admin: 01/18/20 08:50 Dose: 10 mg Documented by: Bupropion HCl (Wellbutrin Sr) 150 mg PO BID [facility] Clopidogrel Bisulfate (Plavix) 75 mg PO QDAY [facility] Last Admin: 01/18/20 08:49 Dose: 75 mg Documented by: Docusate Sodium (Colace) 100 mg PO BIDP PRN PRN Reason: Constipation Last Admin: 01/18/20 09:12 Dose: 100 mg Documented by: Enoxaparin Sodium (Lovenox) 40 mg SQ DAILY [facility] Last Admin: 01/18/20 08:49 Dose: 40 mg Documented by: Potassium Chloride 40 meq/ (Dextrose) 520 mls @ 130 mls/hr IV UD PRN PRN Reason: Potassium < 3 Magnesium Sulfate (Magnesium Sulfate) 2 gm in 50 mls @ 50 mls/hr IV UD PRN PRN Reason: Magnesium </= 1.6 Sodium Chloride (Sodium Chloride 0.9%) 1,000 mls @ 50 mls/hr IV .Q20H [facility] Last Admin: 01/18/20 07:20 Dose: 50 mls/hr Documented by: Labetalol HCl (Trandate) 0 mg IV Q2HP PRN PRN Reason: Hypertension Magnesium Hydroxide (Milk Of Magnesia) 30 ml PO DAILYP PRN PRN Reason: Constipation Last Admin: 01/16/20 11:49 Dose: 30 ml Documented by: Melatonin (Melatonin 3mg Tablet) 9 mg PO [facility] Last Admin: 01/17/20 20:24 Dose: 9 mg Documented by: Ondansetron HCl (Zofran) 4 mg IV Q4HP PRN PRN Reason: Nausea And Vomiting Oxybutynin Chloride (Ditropan) 5 mg PO BID [facility] Last Admin: 01/18/20 08:49 Dose: 5 mg Documented by: Pantoprazole Sodium (Protonix) 40 mg PO ACB [facility] Last Admin: 01/18/20 07:19 Dose: 40 mg Documented by: Polyethylene Glycol (Miralax) 17 gm PO DAILYP PRN PRN Reason: Constipation Potassium Chloride (Kdur) 40 meq PO UD PRN PRN Reason: Potssium is 3-3.5 Potassium Chloride (Kdur) 40 meq PO UD PRN PRN Reason: Potassium < 3 Pramipexole Dihydrochloride (Mirapex) 0.75 mg PO TID [facility] Last Admin: 01/18/20 08:49 Dose: 0.75 mg Documented by: Senna (Senokot) 2 tab PO DAILYP PRN PRN Reason: Constipation Last Admin: 01/18/20 08:51 Dose: 2 tab Documented by: Sertraline HCl (Zoloft) 100 mg PO DAILY [facility] Sodium Chloride (Saline Flush) 10 ml IV Q8 [facility] Last Admin: 01/18/20 07:21 Dose: 10 ml Documented by: Trazodone HCl (Desyrel) 100 mg PO [facility] A/P Narrative A/P Narrative: *Acute CVA left connell radiata and frontal parietal boundary: -chronic occlusions b/l IC arteries *h/o CVA w/left-side weakness arm>Leg: has been on plavix *MARKUS ok CKD II: improved/resolved *Depression: *HTN: home lisinopril 10mg *GERD: *Tobacco abuse: Plan: -ASA/Plavix for 30 days then d/c ASA per stroke neurologist -Increased home statin -echo -BP is normotensive, lisinopril is on hold. -f/u with Dr. De La Cruz -pt/ot/st -CM for placement -Smoking cessation counseling. started bupropion 150mg daily x 3 days and then 150mg bid x 7 weeks. -ppx: lovenox/PPI Deposition: Rehab -possibly on Saturday Time Spent With Patient Time: Total time spent is greater than 50% in coordination of care (as documented) at patient's floor/unit and/or counseling patient: QUALITY Stroke Onset of Symptoms Date: 01/14/20 Onset of Symptoms Time: 21:00 Symptom Onset Unknown: Yes VTE Deep Vein Thrombosis/Pulmonary Embolism Present on Admission: No
--- NOTE | 2020-01-18 10:03 | Discharge Summary ---
Discharge Provider Provider Patient information: Note initiated : 01/18/20 at 10:01 am Service Date, if different from initiated Date: [] Patient: Maurisio Briceno 69 y/o M admitted on 01/14/20 for Stroke Symptoms. Chief Complaint: [] Mr. Briceno is a 69 year old M History difficult to obtain from patient but per notes he was last seen normal last night. The sister noticed him to be altered this morning with some confusion and possibly some dysarthria. He had a history of stroke in the past with residual left-sided weakness. He had fallen out of bed this morning. He was evaluated in the ED and had an MRI which showed a stroke of the connell radiata. Case was discussed with stroke neurologist in [place] who recommended dual antiplatelet for 30 days as he is currently on Plavix. After the 30 days discontinue the aspirin. Also found to have an elevated creatinine. Date of admission: 01/14/20 11:30 Discharge date: 01/18/20 Primary care physician: Anna Yates DO Consults: 01/14/20 10:20 Consult to Physician [CONS] Stat Comment: Consulting Provider: Jah Bhatti Reason For Exam: Physician to Consult 01/18/20 09:10 Consult to Physician [CONS] Routine Comment: Consulting Provider: Harlan Lane Reason For Exam: Physician to Consult Discharge Meds Discharge Medications Home Medications melatonin 10 mg PO HS 04/24/17 [History Confirmed 01/15/20 Last Taken Unknown] magnesium hydroxide 30 ml PO DAILYP PRN oral.susp 04/26/17 [Rx Confirmed 01/15/20 Last Taken Unknown] docusate sodium 100 mg capsule 100 mg PO BID PRN #60 cap 06/06/17 [Rx Confirmed 01/15/20 Last Taken Unknown] leg brace #1 each 09/22/18 [Rx Confirmed 01/14/20 Last Taken Unknown] pramipexole 0.75 mg tablet 0.75 mg PO TID #90 tab 04/16/19 [Rx Confirmed 01/15/20 Last Taken Unknown] oxybutynin chloride 5 mg tablet 5 mg PO BID #60 tab 10/14/19 [Rx Confirmed 01/14/20 Last Taken Unknown] clopidogrel 75 mg tablet 75 mg PO QDAY #90 tab 12/02/19 [Rx Confirmed 01/15/20 Last Taken Unknown] pantoprazole 40 mg tablet,delayed release 40 mg PO DAILY #90 tab 12/02/19 [Rx Confirmed 01/15/20 Last Taken Unknown] trazodone 100 mg tablet 200 mg PO HS #60 tab 01/05/20 [Rx Confirmed 01/15/20 Last Taken Unknown] baclofen 20 mg tablet 20 mg PO .COMPLEX #90 tab 01/12/20 [Rx Confirmed 01/15/20 Last Taken Unknown] B Complex-Vitamin B12 1 cap PO DAILY 01/17/20 [History Confirmed 01/17/20 Last Taken Unknown] aspirin 81 mg PO DAILY 26 Days #26 tab 01/18/20 [Rx Last Taken Unknown] atorvastatin 80 mg PO HS 30 Days #120 tab 01/18/20 [Rx Last Taken Unknown] bupropion HCl 150 mg PO BID 49 Days #98 each 01/18/20 [Rx Last Taken Unknown] ipratropium-albuterol 3 ml INHALATION Q4HP PRN 30 Days #60 ml 01/18/20 [Rx Last Taken Unknown] polyethylene glycol 3350 [Miralax] 17 gm PO DAILYP PRN 30 Days #30 each 01/18/20 [Rx Last Taken Unknown] sertraline 100 mg PO DAILY 30 Days #3 tab 01/18/20 [Rx Last Taken Unknown] COURSE Hospital Course Hospital course: By problems: *Acute CVA left connell radiata and frontal parietal boundary: -chronic occlusions b/l IC arteries *h/o CVA w/left-side weakness arm>Leg: has been on plavix *MARKUS: resolved *Depression: *HTN: *GERD: *Tobacco abuse: Plan: -ASA/Plavix for 30 days then d/c ASA per stroke neurologist -Increased home statin -echo - unremarkable -BP is normotensive, lisinopril is on hold. -f/u with Dr. De La Cruz -pt/ot/st -CM for placement -Smoking cessation counseling. started bupropion 150mg daily x 3 days and then 150mg bid x 7 weeks. -ppx: lovenox/PPI 01/14 Feeling a little better today. Slept well. No new complaints. Creatinine improved. 01/15 Pt does not have complaints. Denies headache, dizziness, nausea, vomiting, chest pain or shortness of breath. Denies new or worsening weakness of left leg and arm. His request to go outside for smoking was declined. For which he wanted to leave AMA. After explanation, he changed his mind. Bupropion was prescribed. PT OT ST are continued He will possibly be discharged to rehab on Tuesday 01/16 Patient feels fine. Does not have any new complaints Patient asks for oxycodone 10 mg 3 times daily which is his home medication. He is also now on trazodone 200 mg at bedtime which is his home medication. I feel it is too much for him to take the two meds. But pt and still want them. pulse ox ordered. 01/17 Patient is relatively stable. He feels fine and does not have any new complaints. His blood pressure was found to be soft at night. He needs to see neurologist. He also needs to cut his trazodone 200 mg. Since he is on bupropion for smoking cessation, I decreased sertraline to 100mg daily from 150mg daily. Continue PT OT Today he does not have new any complaints. Vital signs are acceptable. He will be discharged to SNF today to f/u with PCP, neurology, and Dr. De La Cruz. Call PCP for medical issues. Discharge diagnosis: Acute CVA left connell radiata and frontal parietal boundary Time Spent with Patient Time attestation: Total time spent providing and/or coordinating discharge services: EXAM Constitutional Vitals: Temp Pulse Resp BP Pulse Ox 99 F 81 19 140/84 96 01/18/20 08:01 01/18/20 08:01 01/18/20 08:01 01/18/20 08:01 01/18/20 08:01 Additional findings Additional findings: General: Awake, No acute Distress Eyes/N/T: EOMI, Head/Neck: neck supple, b/l bruit CV: RRR, No murmurs, Pulm: Clear b/l, no wheezing/rhonchi/rales Abd: soft, nontender, +BS x4 Ext: no clubbing/cyanosis/edema Neuro: alert and awake. Can answer questions. strength: 2-3/5 in left lower extremity and 0-1/5 in the upper extremity. sensation symmetrical. skin: warm/dry Discharge Data Data Completed and Pending Labs on day of discharge: Labs from last 24 hours 01/18/20 01/18/20 05:10 05:10 WBC 5.9 RBC 4.15 L Hgb 13.0 L Hct 38.9 L MCV 93.7 MCH 31.3 MCHC 33.4 RDW 13.2 Plt Count 142 MPV 10.9 H Gran % 62.8 Lymph % (Auto) 25.8 [place] % (Auto) 7.3 Eos % (Auto) 3.8 Baso % (Auto) 0.3 Gran # 3.68 Lymph # (Auto) 1.51 [place] # (Auto) 0.43 Eos # (Auto) 0.22 Baso # (Auto) 0.02 Sodium 139 Potassium 4.2 Chloride 107 Carbon Dioxide 22 Anion Gap 10.0 BUN 16 Creatinine 1.0 GFR Calculation 77 Glucose 91 Calcium 8.5 L Total Bilirubin 0.2 AST 18 ALT 9 Alkaline Phosphatase 55 Total Protein 5.8 L Albumin 3.6 Globulin 2.2 Albumin/Globulin Ratio 1.6 Discharge Plan Patient/Caregiver Discharge Instructions Activity: increase activity as tolerated Diet: Low Fat Instructions: How to Stop Smoking (GEN), Cigarette Smoking and Your Health (GEN), How to Prevent Pressure Injuries (GEN), Stroke (GEN) Activity Restrictions/Additional Instructions: Change position every 2 hours or more to prevent pressure injuries paying alose attention to buttocks and heels. Prescriptions: New bupropion HCl 150 mg Tablet Sustained-Release 12 Hr 150 mg PO BID 49 Days Qty: 98 RF: 0 atorvastatin 20 mg Tablet 80 mg PO HS 30 Days Qty: 120 RF: 0 ipratropium-albuterol 0.5 mg-3 mg(2.5 mg base)/3 mL Solution For Nebulization 3 ml inhalation Q4HP PRN (Reason: Shortness Of Breath) 30 Days Qty: 60 RF: 0 polyethylene glycol 3350 [Miralax] 17 gram Powder In Packet 17 gm PO DAILYP PRN (Reason: Constipation) 30 Days Qty: 30 RF: 0 aspirin 81 mg Tablet,Chewable 81 mg PO DAILY 26 Days Qty: 26 RF: 0 sertraline 50 mg Tablet 100 mg PO DAILY 30 Days Qty: 3 RF: 0 Continued pramipexole 0.75 mg tablet 0.75 mg PO TID Qty: 90 RF: 5 oxybutynin chloride 5 mg tablet 5 mg PO BID Qty: 60 RF: 3 pantoprazole 40 mg tablet,delayed release (DR/EC) 40 mg PO DAILY Qty: 90 RF: 0 clopidogrel 75 mg tablet 75 mg PO QDAY Qty: 90 RF: 0 trazodone 100 mg tablet 200 mg PO HS Qty: 60 RF: 0 baclofen 20 mg tablet 20 mg PO .COMPLEX Qty: 90 RF: 0 docusate sodium 100 MG capsule 100 mg PO BID PRN (Reason: Constipation) Qty: 60 RF: 3 melatonin 10 MG capsule 10 mg PO HS RF: 0 magnesium hydroxide 30 ML suspension 30 ml PO DAILYP PRN (Reason: Constipation) RF: 0 B Complex-Vitamin B12 capsule 1 cap PO DAILY RF: 0 Discontinued atorvastatin 20 mg tablet 10 mg PO HS Qty: 90 RF: 1 sertraline 100 mg tablet 150 mg PO DAILY Qty: 135 RF: 0 lisinopril 10 mg tablet 10 mg PO DAILY Qty: 90 RF: 0 acetaminophen 325 MG tablet 650 mg PO Q6HP PRN (Reason: Pain/Fever > 101) RF: 0 ascorbic acid (vitamin C) [Vitamin C] 500 mg Tablet 500 mg PO DAILY RF: 0 herbal drugs Capsule 1 cap PO DAILY RF: 0 red yeast rice 600 mg Capsule 1,200 mg PO DAILY RF: 0 [place]-3 500 mg capsule 1 cap PO DAILY RF: 0 herbal drugs 500 mg capsule 1 cap PO DAILY RF: 0 No Action (DME) Knee Support Brace misc See Dose Instructions .ROUTE .MEDSUPPLY Qty: 1 RF: 0 Other Ambulatory Orders: OT Discharge Order (Routine) Facility: [facility] - Location: [facility] Ordered By: Delbert Loja Physical Therapy at Discharge - General (Routine) Facility: [facility] - Location: [facility] Ordered By: Delbert Loja ST Discharge Order (Routine) Facility: [facility] - Location: [facility] Ordered By: Delbert Loja Follow Up Plan Follow up with: Anna Yates DO [Primary Care Provider] - Shelby De La Cruz MD [Referring] - (in one week) Kat Stokes MD [Physician] - (in one week. ) Patient Disposition: Xfer SNF Prognosis: Serious Rehab Potential: Fair Discharge Orders: Discharge Order (Routine); Ordered 01/18/20 Ordered By: Delbert Loja QUALITY VTE Deep Vein Thrombosis/Pulmonary Embolism Present on Admission: No
[2020-01-18] MEDS ORDERED: traZODone HCL 100 MG TABLET PO SCH (21:00)
[2020-01-19] MEDS ORDERED: SERTRALINE 50 MG TABLET PO SCH (09:00)
[2020-01-19] MEDS ORDERED: buPROPion 150 MG TAB.SR.12H PO SCH (09:00)
== END 2020-01-18 13:40 | DRG 65 ==
LOC: ED 04:39 → ICU 11:30
PROVIDERS: ADMIT Internal Medicine; ATTEND Internal Medicine

== ENCOUNTER 2020-04-15 17:18 | Observation (INO) ==
[2020-04-15] MEDS ORDERED: 0.9 % SODIUM CHLORIDE 500 ML IV ONE (17:53)
[2020-04-15] MEDS ORDERED: VANCOMYCIN 1,000 MG in 0.9 % SODIUM CHLORIDE 250 ML IV ONE (17:58)
[2020-04-15] MEDS ORDERED: PIPERACILLIN SODIUM/TAZOBACTAM 3.375 GM in DEXTROSE 5% IN WATER 50 ML IV ONE (17:58)
--- NOTE | 2020-04-15 18:08 | Emergency Department Note ---
HPI General Chief complaint: Shortness of Breath/Dyspnea Stated complaint: Shortness of Breath Time Seen by Provider: 04/15/20 17:37 Source: EMS Mode of arrival: EMS Limitations: altered mental status History of Present Illness HPI Narrative: Narrative: 70-year-old male patient presents to the emergency department via ambulance with chief complaint of chest pain, altered mental status, and fevers. Patient is post CVA suffered that is affected his left side and his mentation. However, upon direct questioning patient mentions an episode of sharp, stabbing chest pain early this morning around 2:00. He is unsure how long the episode lasted. He does mention he is chest pain-free at this time. Triage note mentions shortness of breath. However he denies shortness of breath during interview. He is somewhat hard to understand and slurs his speech. He does mention pain to his left lower extremity which is severe and new in onset. He does have inability to move his left arm. She has considerable difficulty moving his left leg. In triage his temp is 101.6. He denies any known exposure to the novel coronavirus. ROS: Patient is somewhat hard to understand but does answer the following review of systems questions. Denies headaches, tinnitus, or vision changes. Denies runny nose, sinus congestion, or cough. Denies shortness of breath. Denies retrosternal chest pain or palpitations. Denies abdominal pain, nausea, vomiting, or diarrhea. Denies dysuria. hematuria. Admits to left-sided focal weakness. Related Data Home Medications Medication Instructions Recorded Confirmed B Complex-Vitamin B12 1 cap PO DAILY 01/17/20 03/02/20 baclofen 10 mg tablet 10 mg PO QID 03/02/20 03/02/20 bupropion HCl 150 mg tablet,12 hr 150 mg PO QDAY each 03/02/20 sustained-release melatonin 10 mg capsule 20 mg PO HS cap 03/02/20 03/02/20 trazodone 100 mg tablet 100 mg PO HS tab 03/02/20 Previous Rx's Medication Instructions Recorded magnesium hydroxide 30 ml PO DAILYP PRN oral.susp 04/26/17 docusate sodium 100 mg capsule 100 mg PO BID PRN #60 cap 06/06/17 leg brace #1 each 09/22/18 oxybutynin chloride 5 mg tablet 5 mg PO BID #60 tab 02/02/20 clopidogrel 75 mg tablet 75 mg PO QDAY #30 tab 02/08/20 pantoprazole 40 mg tablet,delayed 40 mg PO DAILY #30 tab 02/08/20 release pramipexole 0.75 mg tablet 0.75 mg PO TID #90 tab 02/08/20 hydrocodone 5 mg-acetaminophen 325 1 tab PO TID PRN #90 tab 03/02/20 mg tablet Allergies Allergy/AdvReac Type Severity Reaction Status Date / Time oxycodone AdvReac Mild Agitated/An Verified 03/02/20 17:00 gry Review of Systems ROS ROS Narrative: Narrative: All systems ED: reviewed and negative except as stated. [facility] Narrative Patient History Narrative: Narrative: Medical/Surgical/Family History All Active Problems (Updated 04/15/20 @ 22:22 by Hemant Shaikh PA-C) Altered mental status (Acute) Fever of unknown origin (Acute) History of cerebrovascular accident (Acute) H/O: stroke with residual effects (Acute) Acute CVA (cerebrovascular accident) (Acute) Unable to ambulate (Chronic) Anemia (Chronic) AAA (abdominal aortic aneurysm) (Chronic) Chronic pain (Chronic) Contracture, left hand (Acute) Wellness examination (Chronic) Sleep apnea (Acute) Marijuana abuse (Chronic) Tobacco abuse (Chronic) Joint pain (Chronic) Insomnia (Chronic) Depression (Chronic) Muscle pain (Chronic) Arthritis (Chronic) Hypertension (Chronic) Left-sided muscle weakness (Chronic) Stroke (Chronic ~2014) Medical History AAA (abdominal aortic aneurysm) (Chronic) Anemia (Chronic) Arthritis (Chronic) Chronic pain (Chronic) r/t contractures following stroke Depression (Chronic) H/O: stroke with residual effects (Acute) Insomnia (Chronic) Joint pain (Chronic) Left-sided muscle weakness (Chronic) Marijuana abuse (Chronic) Muscle pain (Chronic) Stroke (Chronic ~2014) April 2015 Tobacco abuse (Chronic) Unable to ambulate (Chronic) Wellness examination (Chronic) 06/06/17 Surgical History No pertinent past surgical history (Chronic) Family History Father Cancer Social History Smoking Status: Former smoker Alcohol Intake Frequency: does not drink Substance Use: marijuana Exam Narrative Narrative: Narrative: General Limitations: altered mental status General appearance: Present other (Well-developed, chronically ill-appearing 70-year-old male patient laying semirecumbent on the emergency room gurney. She is very fidgety and trying to find a position of comfort. He is manually moving his left leg into several positions in order to get it comfortable. He is alert to his name, date of , and place. He is not alert to time. He is febrile, heart rate 96, he meet SIRS criteria.) Head Head: Present atraumatic and normocephalic Eye Eye: Present normal appearance, PERRL and EOMI; Absent scleral icterus and conjunctival injection ENT ENT: Present normal oropharynx and mucous membranes dry Neck Neck: Present trachea midline; Absent lymphadenopathy and thyromegaly Chest Chest: Present symmetric chest wall rise Respiratory Respiratory: Present normal lung sounds bilaterally; Absent respiratory distress, wheezes, stridor, accessory muscle use and prolonged expiratory phase Cardiovascular Cardiovascular: Present regular rate and normal rhythm; Absent systolic murmur and diastolic murmur Adbominal Abdominal: Present soft; Absent distention, tenderness, guarding, rebound, rigidity, organomegaly and mass Extremities Extremities: Present full ROM, tenderness (Tenderness palpation throughout the left lower extremity on exam. No focal point tenderness.) and normal capillary refill; Absent normal inspection (Left hand is clenched into a fist. He is unable to move his left upper extremity which is his baseline. Left lower extremity is mobile at the hip joint and knee. He is unable to flex and extend his ankle joint.) and pedal edema Back Back: Present normal inspection and full ROM Neurological Neurological: Present alert and motor sensory deficit (Towards the left side.); Absent oriented X3 (Patient is orientated to his person and location. He is not orientated to time.) and normal gait Psychiatric Psychiatric: Present normal affect and anxious (Patient is very fidgety trying to find position of comfort. He is flexing extending his legs and trying to move himself up into the bed.) Skin Skin: Present warm (WNL), dry and normal color Course Course Course Narrative: Patient meet SIRS criteria with fever of 101.6 and a heart rate of 96. He is somewhat altered in his mentation. He is difficult to understand and is elusive his chief complaint. He did complain of chest pain when I initially spoke to him therefore we will go ahead and get an EKG, chest x-ray, and ACS labs. I am going to work him up for sepsis as well. At this time I am uncertain of where the source of the perceived infection may be. Were going to start him on vancomycin 1000 mg IV and Zosyn 3.337 g IV per sepsis protocol. I am going to give him 1000 mL normal saline as a bolus. He was giv en 975 mg of Tylenol p.o. For his fever. Reevaluation(s) Reevaluation #1: I reviewed the patient's diagnostics of the following: CBC platelets 135, all others normal limits. Lactic acid 0.9. CMP CO2 20, creatinine 1.6, all others normal images. Troponin less than 0.01. Procalcitonin 0.05. Portable chest x-ray is read as negative AP chest without interval change. UA still pending. Upon reevaluation patient continues to move and shift positions abruptly. Unfortunately, he dislodged his IV during the Zosyn infusion. We are unsure exactly how much of the previous antibiotic he is had for this. She is somewhat more confused. So a noncontrast CT scan of his head was ordered. An IV was reinserted the patient was given 0.5 mg of Ativan IVP. Unfortunately, patient still continued to move and would not sit still for the CT scan. He was given additional 0.5 mg of Ativan IVP. After returning from radiology patient was given the ordered vancomycin infusion. Time: 20:50 Reevaluation #2: Noncontrast enhanced CT scan was read by the radiologist as negative study. His previous areas of infarction not worsened. Nursing staff went into obtain a catheter urine sample for the patient. During this time patient became very sexually aggressive and was active the masturbating during catheterization. She was immediately cease this activity. He complied willingly. Urine was obtained and sent to the lab for analysis. It is now shift change and I have given full patient report to my collaborating physician (Dr. Bernard) who has assumed the patient's overall care. All further treatment decisions, modalities, and ultimate patient disposition will be carried out by Dr. Bernard. Time: 22:19 Vital Signs Vital signs: Vital Signs Temperature 101.6 F H 04/15/20 17:20 Pulse Rate 96 H 04/15/20 17:20 Respiratory Rate 20 04/15/20 17:20 Blood Pressure 160/73 04/15/20 17:20 Pulse Oximetry (%) 93 04/15/20 17:20 Temperature 98.0 F 04/15/20 22:06 Pulse Rate 96 H 04/15/20 19:23 Respiratory Rate 16 04/15/20 19:23 Blood Pressure 150/85 04/15/20 19:23 Pulse Oximetry (%) 93 04/15/20 17:20 MDM MDM Narrative Medical decision making narrative: Narrative: Lab Data Result diagrams: 04/15/20 18:23 04/15/20 18:23 Labs: Lab Results 04/15/20 04/15/20 04/15/20 Range/Units 18:23 18:23 18:23 WBC 6.9 (4.5-11.0) K/mcL RBC 5.05 (4.50-5.90) M/mcL Hgb 15.7 (13.5-16.5) g/dL Hct 47.1 (41.0-55.0) % MCV 93.3 (80.0-100.0) fL MCH 31.1 (26.0-34.0) pg MCHC 33.3 (31.0-36.0) g/dL RDW 12.8 (11.5-14.5) % Plt Count 135 L (140-440) K/mcL MPV 10.4 (7.4-10.4) fL Neut % (Auto) 68.8 (38.0-78.0) % Lymph % (Auto) 21.2 (15.0-49.0) % [place] % (Auto) 7.2 (1.0-12.0) % Eos % (Auto) 2.5 (0.0-7.0) % Baso % (Auto) 0.3 (0.0-2.0) % Lymph # (Auto) 1.47 L (1.50-4.80) K/mcL [place] # (Auto) 0.50 (0.10-0.90) K/mcL Eos # (Auto) 0.17 (0.00-0.70) K/mcL Baso # (Auto) 0.02 (0.00-0.20) K/mcL Absolute Neutrophils 4.76 (1.80-8.00) K/mcL VBG Lactic Acid 0.9 (0.5-2.0) mmol/L Sodium 140 (133-145) mmol/L Potassium 4.2 (3.3-5.1) mmol/L Chloride 105 (96-108) mmol/L Carbon Dioxide 20 L (22-30) mmol/L Anion Gap 15.0 (8.0-16.0) BUN 17 (8-23) mg/dL Creatinine 1.6 H (0.7-1.2) mg/dL GFR Calculation 43 Glucose 99 (70-105) mg/dL Calcium 9.3 (8.6-10.4) mg/dL Total Bilirubin 0.4 (0.1-1.0) mg/dL AST 19 (<40) U/L ALT 11 (<40) U/L Alkaline Phosphatase 74 (39-117) U/L Troponin T (<0.03) ng/mL Total Protein 7.0 (5.9-8.4) gm/dL Albumin 4.4 (3.2-5.2) gm/dL Globulin 2.6 (2.2-3.7) gm/dL Albumin/Globulin Ratio 1.7 (1.0-2.3) Procalcitonin (<0.10) ng/mL 04/15/20 04/15/20 Range/Units 18:23 18:23 WBC (4.5-11.0) K/mcL RBC (4.50-5.90) M/mcL Hgb (13.5-16.5) g/dL Hct (41.0-55.0) % MCV (80.0-100.0) fL MCH (26.0-34.0) pg MCHC (31.0-36.0) g/dL RDW (11.5-14.5) % Plt Count (140-440) K/mcL MPV (7.4-10.4) fL Neut % (Auto) (38.0-78.0) % Lymph % (Auto) (15.0-49.0) % [place] % (Auto) (1.0-12.0) % Eos % (Auto) (0.0-7.0) % Baso % (Auto) (0.0-2.0) % Lymph # (Auto) (1.50-4.80) K/mcL [place] # (Auto) (0.10-0.90) K/mcL Eos # (Auto) (0.00-0.70) K/mcL Baso # (Auto) (0.00-0.20) K/mcL Absolute Neutrophils (1.80-8.00) K/mcL VBG Lactic Acid (0.5-2.0) mmol/L Sodium (133-145) mmol/L Potassium (3.3-5.1) mmol/L Chloride (96-108) mmol/L Carbon Dioxide (22-30) mmol/L Anion Gap (8.0-16.0) BUN (8-23) mg/dL Creatinine (0.7-1.2) mg/dL GFR Calculation Glucose (70-105) mg/dL Calcium (8.6-10.4) mg/dL Total Bilirubin (0.1-1.0) mg/dL AST (<40) U/L ALT (<40) U/L Alkaline Phosphatase (39-117) U/L Troponin T < 0.01 (<0.03) ng/mL Total Protein (5.9-8.4) gm/dL Albumin (3.2-5.2) gm/dL Globulin (2.2-3.7) gm/dL Albumin/Globulin Ratio (1.0-2.3) Procalcitonin 0.05 (<0.10) ng/mL Radiology Data Radiology results reviewed: Yes I reviewed the patient's radiology results. Radiology results narrative: Ordering Physician: Hemant Shaikh PA-C Date of Service: 04/15/20 Procedure(s): XR chest 1V portable Accession Number(s): [id number] INDICATION: chest pain this morning. febrile in triage. No SOB TECHNIQUE: AP portable semiupright chest x-ray COMPARISON: Previous chest x-rays dated 02/27/2018, 02/26/2018, 04/24/2017 FINDINGS: Lungs:Lungs are negative. No focal pulmonary parenchymal infiltrate or mass Heart, vascular:No significant cardiomegaly. Pulmonary vascularity is normal. No pulmonary edema or pulmonary congestion Mediastinum, samuel:No mediastinal widening. No hilar mass Pleura:No pleural fluid. No pleural-based mass or calcification Skeletal:Negative. IMPRESSION: 1. Negative AP chest x-ray 2. No interval change since 02/27/2018 Interpreted and Authenticated by: Harlan Kaplan 04/15/20 Discharge Plan Patient/Caregiver Discharge Instructions Pt seen by BUSINESS INSURANCE AGENT/PA only: Yes Clinical Impression: Altered mental status, Fever of unknown origin, History of cerebrovascular accident Patient Disposition: Still a Patient Condition: Fair Follow up with: Anna Yates DO [Primary Care Provider] - Prescriptions: No Action (DME) Knee Support Brace misc See Dose Instructions .ROUTE .MEDSUPPLY Qty: 1 RF: 0 oxybutynin chloride 5 mg tablet 5 mg PO BID Qty: 60 RF: 1 clopidogrel 75 mg tablet 75 mg PO QDAY Qty: 30 RF: 0 pantoprazole 40 mg tablet,delayed release (DR/EC) 40 mg PO DAILY Qty: 30 RF: 0 pramipexole 0.75 mg tablet 0.75 mg PO TID Qty: 90 RF: 0 baclofen 10 mg tablet 10 mg PO QID RF: 0 bupropion HCl 150 mg tablet sustained-release 12 hr 150 mg PO QDAY RF: 0 trazodone 100 mg tablet 100 mg PO HS RF: 0 hydrocodone-acetaminophen 5-325 mg tablet 1 tab PO TID PRN (Reason: pain) Qty: 90 RF: 0 docusate sodium 100 MG capsule 100 mg PO BID PRN (Reason: Constipation) Qty: 60 RF: 3 magnesium hydroxide 30 ML suspension 30 ml PO DAILYP PRN (Reason: Constipation) RF: 0 melatonin 10 mg capsule 20 mg PO HS RF: 0 B Complex-Vitamin B12 capsule 1 cap PO DAILY RF: 0
[2020-04-15] MEDS ORDERED: ACETAMINOPHEN 325 MG TABLET PO ONE (18:22)
--- NOTE | 2020-04-15 18:23 | XRay Report ---
INDICATION: chest pain this morning. febrile in triage. No SOB TECHNIQUE: AP portable semiupright chest x-ray COMPARISON: Previous chest x-rays dated 02/27/2018, 02/26/2018, 04/24/2017 FINDINGS: Lungs:Lungs are negative. No focal pulmonary parenchymal infiltrate or mass Heart, vascular:No significant cardiomegaly. Pulmonary vascularity is normal. No pulmonary edema or pulmonary congestion Mediastinum, samuel:No mediastinal widening. No hilar mass Pleura:No pleural fluid. No pleural-based mass or calcification Skeletal:Negative. IMPRESSION: 1. Negative AP chest x-ray 2. No interval change since 02/27/2018 Interpreted and Authenticated by: Harlan Kaplan 04/15/20
[2020-04-15 19:21] LABS: Basophils # (Auto) 0.02 K/mcL (0.00-0.20); Basophils % (Auto) 0.3 % (0.0-2.0); Eosinophils # (Auto) 0.17 K/mcL (0.00-0.70); Eosinophils % (Auto) 2.5 % (0.0-7.0); Hematocrit 47.1 % (41.0-55.0); Hemoglobin 15.7 g/dL (13.5-16.5); Lymphocytes # (Auto) 1.47 K/mcL (1.50-4.80); Lymphocytes % (Auto) 21.2 % (15.0-49.0); Mean Cell Volume 93.3 fL (80.0-100.0); Mean Corpuscular HGB Conc 33.3 g/dL (31.0-36.0); Mean Platelet Volume 10.4 fL (7.4-10.4); Monocytes % (Auto) 7.2 % (1.0-12.0); Neutrophils % (Auto) 68.8 % (38.0-78.0); Platelet Count 135 K/mcL (140-440); RBC 5.05 M/mcL (4.50-5.90); Red Cell Distribution Width 12.8 % (11.5-14.5); WBC 6.9 K/mcL (4.5-11.0)
[2020-04-15 19:52] LABS: ALT/SGPT 11 U/L (<40); AST/SGOT 19 U/L (<40); Albumin 4.4 gm/dL (3.2-5.2); Albumin/Globulin Ratio 1.7 (1.0-2.3); Alkaline Phosphatase 74 U/L (39-117); Bilirubin,Total 0.4 mg/dL (0.1-1.0); Blood Urea Nitrogen 17 mg/dL (8-23); Calcium 9.3 mg/dL (8.6-10.4); Carbon Dioxide 20 mmol/L (22-30); Chloride 105 mmol/L (96-108); Globulin 2.6 gm/dL (2.2-3.7); Glomerular Filtration Rate 43; Glucose 99 mg/dL (70-105)
[2020-04-15] MEDS ORDERED: LORazepam 2 MG/ML VIAL IV ONE ×2 (20:40→21:02)
[2020-04-15] MEDS ORDERED: 0.9 % SODIUM CHLORIDE 1,000 ML IV ONE (22:12)
[2020-04-15 23:39] LABS: Appearance,Urine CLEAR (Clear); Bilirubin,Urine Negative (Negative); Color,Urine Yellow; Culture Indicated,Urine No; Glucose,Urine (UA) Negative (Negative); Ketones,Urine Negative (Negative); Leukocyte Esterase,Urine Negative /ug (Negative); Mucus,Urine FEW /hpf; Nitrate,Urine Negative (Negative); Protein,Urine Negative (Negative); Specific Gravity,Urine 1.025 (1.000-1.035); Urine Amorphous Crystals FEW /hpf; Urine Blood Negative (Negative); Urine RBC 0 /hpf (0-1); Urine Squamous Epithelial Cell < 1 /hpf (0-4); Urine WBC 1 /hpf (0-4); Urobilinogen,Urine Negative
[2020-04-16] MEDS ORDERED: 0.9 % SODIUM CHLORIDE 1,000 ML IV SCH (01:00)
--- NOTE | 2020-04-16 01:06 | Emergency Department Note ---
HPI General Chief complaint: Shortness of Breath/Dyspnea Stated complaint: Shortness of Breath Time Seen by Provider: 04/15/20 17:37 Source: EMS Mode of arrival: EMS Limitations: altered mental status History of Present Illness HPI Narrative: Narrative: See history and physical dictated by Hemant Shaikh PA-C. I am following up on patient after and in shift for Mr. Shaikh. Patient's brief summary includes that he has had some symptoms of chest discomfort and upper respiratory type of symptoms and comes to the emergency room but here seems to have mental status changes, neurologic change etc. He has had more slurring of speech, thrashing around and fidgeting, and some inappropriate behaviors. According to his sister these are new and unusual behaviors for him and not considered normal. She reports that some of the abnormal behaviors such as the confusion are similar to what he experienced prior to his previous strokes. He also has some chronic difficulties with speaking, some recent slurred speech today, some chest discomfort reportedly began around 2 AM. He has some left leg discomforts and difficulties moving his left side. Temperature initially was 1-1.6 and he had a tachycardia around 97. A sepsis work-up was performed but his lactic acid was 0.9, pro calcitonin 0.05 and his white count was less than 9. His chest x-ray was negative. UA was pending at the time of the ended shift. A catheterized specimen was obtained; patient exhibited sexual behaviors of touching and/or stroking his penis at the time of the catheter placement to obtain a specimen. The sister reports that this is not normal for him. Related Data Home Medications Medication Instructions Recorded Confirmed B Complex-Vitamin B12 1 cap PO DAILY 01/17/20 03/02/20 baclofen 10 mg tablet 10 mg PO QID 03/02/20 03/02/20 bupropion HCl 150 mg tablet,12 hr 150 mg PO QDAY each 03/02/20 sustained-release melatonin 10 mg capsule 20 mg PO HS cap 03/02/20 03/02/20 trazodone 100 mg tablet 100 mg PO HS tab 03/02/20 Previous Rx's Medication Instructions Recorded magnesium hydroxide 30 ml PO DAILYP PRN oral.susp 04/26/17 docusate sodium 100 mg capsule 100 mg PO BID PRN #60 cap 06/06/17 leg brace #1 each 09/22/18 oxybutynin chloride 5 mg tablet 5 mg PO BID #60 tab 02/02/20 clopidogrel 75 mg tablet 75 mg PO QDAY #30 tab 02/08/20 pantoprazole 40 mg tablet,delayed 40 mg PO DAILY #30 tab 02/08/20 release pramipexole 0.75 mg tablet 0.75 mg PO TID #90 tab 02/08/20 hydrocodone 5 mg-acetaminophen 325 1 tab PO TID PRN #90 tab 03/02/20 mg tablet Allergies Allergy/AdvReac Type Severity Reaction Status Date / Time oxycodone AdvReac Mild Agitated/An Verified 03/02/20 17:00 pili Review of Systems ROS ROS Narrative: Narrative: PFSH Narrative Patient History Narrative: Narrative: Medical/Surgical/Family History All Active Problems (Updated 04/16/20 @ 00:52 by Roderick Bernard DO) Altered mental status (Acute) Fever of unknown origin (Acute) History of cerebrovascular accident (Acute) Acute renal failure (ARF) (Acute) H/O: stroke with residual effects (Acute) Acute CVA (cerebrovascular accident) (Acute) Unable to ambulate (Chronic) Anemia (Chronic) AAA (abdominal aortic aneurysm) (Chronic) Chronic pain (Chronic) Contracture, left hand (Acute) Wellness examination (Chronic) Sleep apnea (Acute) Marijuana abuse (Chronic) Tobacco abuse (Chronic) Joint pain (Chronic) Insomnia (Chronic) Depression (Chronic) Muscle pain (Chronic) Arthritis (Chronic) Hypertension (Chronic) Left-sided muscle weakness (Chronic) Stroke (Chronic ~2014) Medical History AAA (abdominal aortic aneurysm) (Chronic) Anemia (Chronic) Arthritis (Chronic) Chronic pain (Chronic) r/t contractures following stroke Depression (Chronic) H/O: stroke with residual effects (Acute) Insomnia (Chronic) Joint pain (Chronic) Left-sided muscle weakness (Chronic) Marijuana abuse (Chronic) Muscle pain (Chronic) Stroke (Chronic ~2014) April 2015 Tobacco abuse (Chronic) Unable to ambulate (Chronic) Wellness examination (Chronic) 06/06/17 Surgical History No pertinent past surgical history (Chronic) Family History Father Cancer Social History Smoking Status: Former smoker Alcohol Intake Frequency: does not drink Substance Use: marijuana Exam Narrative Narrative: Narrative: Patient is pleasant and interactive and seems mostly appropriate but obviously has some pauses in his speech. He is able to spell world forwards but not even do much going backwards. With pushing a little bit he is able to say DR FUNK. He remembers to the glass belt sander is. He thinks the month is April. He has the year corrected 2019. He is not able to say anything about near future holidays or special days. He is unable to do even the first of serial subtractions of 7. He has to help move his left lower extremity and. He is squirming and fidgeting some in bed. This is only after I come into the room as he seemed to be resting but awake as I entered. He has reasonably good eye contact. He describes pain in his left lower extremity and attributes this to muscle spasms. Speech is without stuttering. There are significant pauses and he does not answer all questions as if he did not understand them or did not have knowledge of them. General Limitations: altered mental status General appearance: Present in no apparent distress; Absent consternation, grimacing, in distress, lethargic, malaise and nontoxic Course Vital Signs Vital signs: Vital Signs Temperature 101.6 F H 04/15/20 17:20 Pulse Rate 96 H 04/15/20 17:20 Respiratory Rate 20 04/15/20 17:20 Blood Pressure 160/73 04/15/20 17:20 Pulse Oximetry (%) 93 04/15/20 17:20 Temperature 98.2 F 04/16/20 00:58 Pulse Rate 95 H 04/16/20 00:58 Respiratory Rate 18 04/16/20 00:58 Blood Pressure 163/72 04/16/20 00:58 Pulse Oximetry (%) 98 04/16/20 00:58 MDM MDM Narrative Medical decision making narrative: Narrative: He denies any major problems concerns or issues that could shed light on his circumstances issues or problems. As discussed with Mr. Shaikh, patient's baseline is not certain or well. He discussed with the sister and pointed out these abnormal behaviors. 11:47 PM - patient feels like he is back to normal. His UA was negative. His creatinine is 1.6. 11:58 PM - spoke with patient's sister, Onelia Nickerson, , and she understands that there may be a futility issue but is appreciative of my offer to call Dr. De La Cruz. Patient's creatinine has come back 1.6 with previous normals being 1.01.0, 1.2. His baseline does include a left hemiplegia per the sister. 12:37 AM - I spoke with Dr. Jah Bhatti who is willing to have the patient be admitted. A rapid Covid test is to be done and this is ordered. Also we will run him at 90 cc/h to help additional hydration and have morning labs to include a CBC and metabolic panel. An MRI is also ordered with stroke protocol for tomorrow. This may or may not be available. Of note is that patient is on clopidogrel. There is limited intervention that could be of major benefit or significant use 2 AM based on futility dolor is significant underlying severe disease. I discussed with him CODE STATUS and he seemed to be fairly confident and consistent in saying that he wants to be a full code, even in light of probable futility. Lab Data Result diagrams: 04/15/20 18:23 04/15/20 18:23 Labs: Lab Results 04/15/20 04/15/20 04/15/20 Range/Units 18:23 18:23 18:23 WBC 6.9 (4.5-11.0) K/mcL RBC 5.05 (4.50-5.90) M/mcL Hgb 15.7 (13.5-16.5) g/dL Hct 47.1 (41.0-55.0) % MCV 93.3 (80.0-100.0) fL MCH 31.1 (26.0-34.0) pg MCHC 33.3 (31.0-36.0) g/dL RDW 12.8 (11.5-14.5) % Plt Count 135 L (140-440) K/mcL MPV 10.4 (7.4-10.4) fL Neut % (Auto) 68.8 (38.0-78.0) % Lymph % (Auto) 21.2 (15.0-49.0) % [place] % (Auto) 7.2 (1.0-12.0) % Eos % (Auto) 2.5 (0.0-7.0) % Baso % (Auto) 0.3 (0.0-2.0) % Lymph # (Auto) 1.47 L (1.50-4.80) K/mcL [place] # (Auto) 0.50 (0.10-0.90) K/mcL Eos # (Auto) 0.17 (0.00-0.70) K/mcL Baso # (Auto) 0.02 (0.00-0.20) K/mcL Absolute Neutrophils 4.76 (1.80-8.00) K/mcL VBG Lactic Acid 0.9 (0.5-2.0) mmol/L Sodium 140 (133-145) mmol/L Potassium 4.2 (3.3-5.1) mmol/L Chloride 105 (96-108) mmol/L Carbon Dioxide 20 L (22-30) mmol/L Anion Gap 15.0 (8.0-16.0) BUN 17 (8-23) mg/dL Creatinine 1.6 H (0.7-1.2) mg/dL GFR Calculation 43 Glucose 99 (70-105) mg/dL Calcium 9.3 (8.6-10.4) mg/dL Total Bilirubin 0.4 (0.1-1.0) mg/dL AST 19 (<40) U/L ALT 11 (<40) U/L Alkaline Phosphatase 74 (39-117) U/L Troponin T (<0.03) ng/mL Total Protein 7.0 (5.9-8.4) gm/dL Albumin 4.4 (3.2-5.2) gm/dL Globulin 2.6 (2.2-3.7) gm/dL Albumin/Globulin Ratio 1.7 (1.0-2.3) Procalcitonin (<0.10) ng/mL Urine Color Urine Appearance (Clear) Urine pH (5.0-9.0) Ur Specific [place] (1.000-1.035) Urine Protein (Negative) mg/dL Urine Glucose (UA) (Negative) mg/dL Urine Ketones (Negative) mg/dL Urine Occult Blood (Negative) mg/dL Urine Nitrate (Negative) Urine Bilirubin (Negative) mg/dL Urine Urobilinogen mg/dL Ur Leukocyte Esterase (Negative) /ug Urine RBC (0-1) /hpf Urine WBC (0-4) /hpf Ur Squamous Epith Cells (0-4) /hpf Amorphous Crystals (None) /hpf Urine Bacteria (0) /hpf Urine Mucus (None) /hpf Ur Culture Indicated? 04/15/20 04/15/20 04/15/20 Range/Units 18:23 18:23 21:58 WBC (4.5-11.0) K/mcL RBC (4.50-5.90) M/mcL Hgb (13.5-16.5) g/dL Hct (41.0-55.0) % MCV (80.0-100.0) fL MCH (26.0-34.0) pg MCHC (31.0-36.0) g/dL RDW (11.5-14.5) % Plt Count (140-440) K/mcL MPV (7.4-10.4) fL Neut % (Auto) (38.0-78.0) % Lymph % (Auto) (15.0-49.0) % [place] % (Auto) (1.0-12.0) % Eos % (Auto) (0.0-7.0) % Baso % (Auto) (0.0-2.0) % Lymph # (Auto) (1.50-4.80) K/mcL [place] # (Auto) (0.10-0.90) K/mcL Eos # (Auto) (0.00-0.70) K/mcL Baso # (Auto) (0.00-0.20) K/mcL Absolute Neutrophils (1.80-8.00) K/mcL VBG Lactic Acid (0.5-2.0) mmol/L Sodium (133-145) mmol/L Potassium (3.3-5.1) mmol/L Chloride (96-108) mmol/L Carbon Dioxide (22-30) mmol/L Anion Gap (8.0-16.0) BUN (8-23) mg/dL Creatinine (0.7-1.2) mg/dL GFR Calculation Glucose (70-105) mg/dL Calcium (8.6-10.4) mg/dL Total Bilirubin (0.1-1.0) mg/dL AST (<40) U/L ALT (<40) U/L Alkaline Phosphatase (39-117) U/L Troponin T < 0.01 (<0.03) ng/mL Total Protein (5.9-8.4) gm/dL Albumin (3.2-5.2) gm/dL Globulin (2.2-3.7) gm/dL Albumin/Globulin Ratio (1.0-2.3) Procalcitonin 0.05 (<0.10) ng/mL Urine Color Yellow Urine Appearance Clear (Clear) Urine pH 5.0 (5.0-9.0) Ur Specific [place] 1.025 (1.000-1.035) Urine Protein Negative (Negative) mg/dL Urine Glucose (UA) Negative (Negative) mg/dL Urine Ketones Negative (Negative) mg/dL Urine Occult Blood Negative (Negative) mg/dL Urine Nitrate Negative (Negative) Urine Bilirubin Negative (Negative) mg/dL Urine Urobilinogen Negative mg/dL Ur Leukocyte Esterase Negative (Negative) /ug Urine RBC 0 (0-1) /hpf Urine WBC 1 (0-4) /hpf Ur Squamous Epith Cells < 1 (0-4) /hpf Amorphous Crystals Few A (None) /hpf Urine Bacteria None (0) /hpf Urine Mucus Few A (None) /hpf Ur Culture Indicated? No Discharge Plan Patient/Caregiver Discharge Instructions Pt seen by FIBER DESIGN ENGINEER/PA only: No Clinical Impression: Fever of unknown origin, History of cerebrovascular accident Altered mental status Qualifiers: Altered mental status type: disorientation Qualified Code(s): R41.0 - Disori entation, unspecified Acute renal failure (ARF) Qualifiers: Acute renal failure type: unspecified Qualified Code(s): N17.9 - Acute kidney failure, unspecified Patient Disposition: Xfer As Outpt/Obs ([facility]) Condition: Fair Follow up with: Anna Yates DO [Primary Care Provider] - Prescriptions: No Action (DME) Knee Support Brace misc See Dose Instructions .ROUTE .MEDSUPPLY Qty: 1 RF: 0 oxybutynin chloride 5 mg tablet 5 mg PO BID Qty: 60 RF: 1 clopidogrel 75 mg tablet 75 mg PO QDAY Qty: 30 RF: 0 pantoprazole 40 mg tablet,delayed release (DR/EC) 40 mg PO DAILY Qty: 30 RF: 0 pramipexole 0.75 mg tablet 0.75 mg PO TID Qty: 90 RF: 0 baclofen 10 mg tablet 10 mg PO QID RF: 0 bupropion HCl 150 mg tablet sustained-release 12 hr 150 mg PO QDAY RF: 0 trazodone 100 mg tablet 100 mg PO HS RF: 0 hydrocodone-acetaminophen 5-325 mg tablet 1 tab PO TID PRN (Reason: pain) Qty: 90 RF: 0 docusate sodium 100 MG capsule 100 mg PO BID PRN (Reason: Constipation) Qty: 60 RF: 3 magnesium hydroxide 30 ML suspension 30 ml PO DAILYP PRN (Reason: Constipation) RF: 0 melatonin 10 mg capsule 20 mg PO HS RF: 0 B Complex-Vitamin B12 capsule 1 cap PO DAILY RF: 0
[2020-04-16] MEDS ORDERED: OLANZapine 5 MG TABLET PO ONE (01:17)
[2020-04-16 05:30] LABS: Basophils # (Auto) 0.03 K/mcL (0.00-0.20); Basophils % (Auto) 0.3 % (0.0-2.0); Eosinophils # (Auto) 0.13 K/mcL (0.00-0.70); Eosinophils % (Auto) 1.3 % (0.0-7.0); Hematocrit 41.8 % (41.0-55.0); Lymphocytes # (Auto) 1.69 K/mcL (1.50-4.80); Lymphocytes % (Auto) 17.5 % (15.0-49.0); Mean Cell Volume 94.1 fL (80.0-100.0); Mean Corpuscular HGB Conc 33.5 g/dL (31.0-36.0); Mean Platelet Volume 10.3 fL (7.4-10.4); Monocytes # (Auto) 0.71 K/mcL (0.10-0.90); Monocytes % (Auto) 7.4 % (1.0-12.0); Neutrophils % (Auto) 73.5 % (38.0-78.0); Platelet Count 137 K/mcL (140-440); RBC 4.44 M/mcL (4.50-5.90); Red Cell Distribution Width 12.4 % (11.5-14.5); WBC 9.7 K/mcL (4.5-11.0)
[2020-04-16 05:45] LABS: ALT/SGPT 8 U/L (<40); AST/SGOT 18 U/L (<40); Albumin/Globulin Ratio 1.7 (1.0-2.3); Alkaline Phosphatase 66 U/L (39-117); Bilirubin,Direct < 0.2 mg/dL (<0.3); Bilirubin,Total 0.4 mg/dL (0.1-1.0); Blood Urea Nitrogen 14 mg/dL (8-23); Calcium 8.9 mg/dL (8.6-10.4); Carbon Dioxide 20 mmol/L (22-30); Chloride 108 mmol/L (96-108); Globulin 2.4 gm/dL (2.2-3.7); Glomerular Filtration Rate 61; Glucose 90 mg/dL (70-105); Lactate Dehydrogenase 183 U/L (135-225); Triglycerides 55 mg/dL (<150); Uric Acid 5.7 mg/dL (2.5-8.0)
--- NOTE | 2020-04-16 06:25 | Cat Scan Report ---
INDICATION: altered mental status. agitation. Hx of CVA. COMPARISON: Previous limited MRI scan dated 01/14/2020. Previous CT scans dated 01/14/2020, 02/27/2018 TECHNIQUE: Axial noncontrast-enhanced images through the brain. Sagittally and coronally reformatted images. FINDINGS: The examination was initially interpreted by [facility] Cerebral hemispheres:Bifrontal encephalomalacia, right worse than left. Appearance is consistent with nonacute, chronic infarction. No new intra-axial attenuation abnormality or localized mass effect. No acute intra-axial hemorrhage. Brainstem and cerebellum:No intra-axial abnormality Extra-axial:No acute hemorrhage. No subdural or epidural hematoma. No subarachnoid hemorrhage. Basilar cisterns are normal Calvarial:No calvarial fracture. No lytic lesion Temporal bones are negative. No destructive lesions Soft tissue, orbits, sinuses:Orbits and visualized facial soft tissues and paranasal sinuses are negative IMPRESSION: 1. Bifrontal encephalomalacia 2. No acute abnormality. No interval change since 01/14/2020 The exam was performed using radiation dose optimization techniques including, but not limited to, automated exposure control, adjustment of the mA and/or kV according to patient size and use of iterative reconstruction technique. Interpreted and Authenticated by: Harlan Kaplan 04/16/20
--- NOTE | 2020-04-16 07:47 | Internal Med History&Physical ---
HPI History of Present Illness Patient information: Note initiated : 04/16/20 at 7:39 am Service Date, if different from initiated Date: [] Patient: Maurisio Briceno a 70 y/o M admitted on 04/16/20 for Shortness of Breath. Chief Complaint: [] History of present illness: Mr. Briceno is a 70 year old M Presents the ED with increased confusion and inappropriate behaviors per family compared to baseline per family. He also had a fever in the ED. This x-ray and urinalysis unremarkable. This was discussed with Dr. De La Cruz who is schedule a visit because of cerebral vascular disease and he recommended MRI. Is also found to have acute kidney injury and volume depleted. Admission requested for confusion and MRI and acute kidney injury. Renal function improved overnight with IV fluids. Patient feels better this morning. MRI pending. Review of Systems: Pertinent positives as above. Denies headache/fever/chills/nausea/vomiting/chest or abdominal pain/cough/dyspnea/diarrhea. Remaining 10 point review of system reviewed negative PFSH PFSH All Active Problems (Updated 04/16/20 @ 01:22 by Roderick Bernard DO) Altered mental status (Acute) Fever of unknown origin (Acute) History of cerebrovascular accident (Acute) Acute renal failure (ARF) (Acute) Chronic anticoagulation (Acute) H/O: stroke with residual effects (Acute) Acute CVA (cerebrovascular accident) (Acute) Unable to ambulate (Chronic) Anemia (Chronic) AAA (abdominal aortic aneurysm) (Chronic) Chronic pain (Chronic) Contracture, left hand (Acute) Wellness examination (Chronic) Sleep apnea (Acute) Marijuana abuse (Chronic) Tobacco abuse (Chronic) Joint pain (Chronic) Insomnia (Chronic) Depression (Chronic) Muscle pain (Chronic) Arthritis (Chronic) Hypertension (Chronic) Left-sided muscle weakness (Chronic) Stroke (Chronic ~2014) Medical History AAA (abdominal aortic aneurysm) (Chronic) Anemia (Chronic) Arthritis (Chronic) Chronic pain (Chronic) r/t contractures following stroke Depression (Chronic) H/O: stroke with residual effects (Acute) Insomnia (Chronic) Joint pain (Chronic) Left-sided muscle weakness (Chronic) Marijuana abuse (Chronic) Muscle pain (Chronic) Stroke (Chronic ~2014) April 2015 Tobacco abuse (Chronic) Unable to ambulate (Chronic) Wellness examination (Chronic) 06/06/17 Surgical History No pertinent past surgical history (Chronic) Family History Father Cancer Social History (Updated 04/16/20 @ 09:14 by Jah Bhatti DO) marital status: legally smoking status: Former smoker alcohol intake frequency: does not drink substance use type: marijuana additional history: Patient denies any surgical history Allergies: States mother father were both healthy Social history: Patient smokes 1 pack of cigarettes per day Denies alcohol use Uses a wheelchair and Walker Lives with his sister MEDS/ALLERGIES Home Medications and Allergies Home Medications Medication Instructions Recorded Confirmed Type magnesium hydroxide 30 ml PO DAILYP PRN oral.susp 04/26/17 03/02/20 Rx docusate sodium 100 mg capsule 100 mg PO BID PRN #60 cap 06/06/17 03/02/20 Rx leg brace #1 each 09/22/18 03/02/20 Rx B Complex-Vitamin B12 1 cap PO DAILY 01/17/20 03/02/20 History oxybutynin chloride 5 mg tablet 5 mg PO BID #60 tab 02/02/20 03/02/20 Rx clopidogrel 75 mg tablet 75 mg PO QDAY #30 tab 02/08/20 03/02/20 Rx pantoprazole 40 mg tablet,delayed 40 mg PO DAILY #30 tab 02/08/20 03/02/20 Rx release pramipexole 0.75 mg tablet 0.75 mg PO TID #90 tab 02/08/20 03/02/20 Rx baclofen 10 mg tablet 10 mg PO QID 03/02/20 03/02/20 History bupropion HCl 150 mg tablet,12 hr 150 mg PO QDAY each 03/02/20 History sustained-release hydrocodone 5 mg-acetaminophen 325 1 tab PO TID PRN #90 tab 03/02/20 03/02/20 Rx mg tablet melatonin 10 mg capsule 20 mg PO HS cap 03/02/20 03/02/20 History trazodone 100 mg tablet 100 mg PO HS tab 03/02/20 History Allergies Allergy/AdvReac Type Severity Reaction Status Date / Time oxycodone AdvReac Mild Agitated/An Verified 03/02/20 17:00 gry EXAM Constitutional Vitals: Temp Pulse Resp BP Pulse Ox 98.4 F 88 16 125/84 94 04/16/20 04:00 04/16/20 04:00 04/16/20 04:00 04/16/20 04:00 04/16/20 04:00 Exam: General: Alert, Awake, No acute Distress Eyes/N/T: EOMI, PERRL, dry MM Head/Neck: neck supple, normocephalic atraumatic CV: RRR, No murmurs, normal s1/s2 Pulm: Clear b/l, no wheezing/rhonchi/rales Abd: soft, nontender, +BS x4 Ext: no clubbing/cyanosis/edema Neuro: Alert, chronic left side hemiparesis Skin: warm/dry DATA Data Completed and Pending Labs: Labs from last 24 hours 04/16/20 04/16/20 04/16/20 04:38 04:38 01:00 WBC 9.7 RBC 4.44 L Hgb 14.0 Hct 41.8 MCV 94.1 MCH 31.5 MCHC 33.5 RDW 12.4 Plt Count 137 L MPV 10.3 Neut % (Auto) 73.5 Lymph % (Auto) 17.5 [place] % (Auto) 7.4 Eos % (Auto) 1.3 Baso % (Auto) 0.3 Lymph # (Auto) 1.69 [place] # (Auto) 0.71 Eos # (Auto) 0.13 Baso # (Auto) 0.03 Absolute Neutrophils 7.09 VBG Lactic Acid Sodium 140 Potassium 3.8 Chloride 108 Carbon Dioxide 20 L Anion Gap 12.0 BUN 14 Creatinine 1.2 GFR Calculation 61 Glucose 90 Uric Acid 5.7 Calcium 8.9 Phosphorus 2.0 L Magnesium 2.0 Total Bilirubin 0.4 Direct Bilirubin < 0.2 GGT 23 AST 18 ALT 8 Alkaline Phosphatase 66 Lactate Dehydrogenase 183 Troponin T Total Protein 6.4 Albumin 4.0 Globulin 2.4 Albumin/Globulin Ratio 1.7 Triglycerides 55 Procalcitonin Urine Color Urine Appearance Urine pH Ur Specific [place] Urine Protein Urine Glucose (UA) Urine Ketones Urine Occult Blood Urine Nitrate Urine Bilirubin Urine Urobilinogen Ur Leukocyte Esterase Urine RBC Urine WBC Ur Squamous Epith Cells Amorphous Crystals Urine Bacteria Urine Mucus Ur Culture Indicated? SARS-CoV-2 (PCR) Negative 04/15/20 04/15/20 04/15/20 21:58 18:50 18:23 WBC RBC Hgb Hct MCV MCH MCHC RDW Plt Count MPV Neut % (Auto) Lymph % (Auto) [place] % (Auto) Eos % (Auto) Baso % (Auto) Lymph # (Auto) [place] # (Auto) Eos # (Auto) Baso # (Auto) Absolute Neutrophils VBG Lactic Acid Sodium Potassium Chloride Carbon Dioxide Anion Gap BUN Creatinine GFR Calculation Glucose Uric Acid Calcium Phosphorus Magnesium Total Bilirubin Direct Bilirubin GGT AST ALT Alkaline Phosphatase Lactate Dehydrogenase Troponin T < 0.01 Total Protein Albumin Globulin Albumin/Globulin Ratio Triglycerides Procalcitonin Urine Color Yellow Urine Appearance Clear Urine pH 5.0 Ur Specific [place] 1.025 Urine Protein Negative Urine Glucose (UA) Negative Urine Ketones Negative Urine Occult Blood Negative Urine Nitrate Negative Urine Bilirubin Negative Urine Urobilinogen Negative Ur Leukocyte Esterase Negative Urine RBC 0 Urine WBC 1 Ur Squamous Epith Cells < 1 Amorphous Crystals Few A Urine Bacteria None Urine Mucus Few A Ur Culture Indicated? No SARS-CoV-2 (PCR) Pending 04/15/20 04/15/20 04/15/20 18:23 18:23 18:23 WBC RBC Hgb Hct MCV MCH MCHC RDW Plt Count MPV Neut % (Auto) Lymph % (Auto) [place] % (Auto) Eos % (Auto) Baso % (Auto) Lymph # (Auto) [place] # (Auto) Eos # (Auto) Baso # (Auto) Absolute Neutrophils VBG Lactic Acid 0.9 Sodium 140 Potassium 4.2 Chloride 105 Carbon Dioxide 20 L Anion Gap 15.0 BUN 17 Creatinine 1.6 H GFR Calculation 43 Glucose 99 Uric Acid Calcium 9.3 Phosphorus Magnesium Total Bilirubin 0.4 Direct Bilirubin GGT AST 19 ALT 11 Alkaline Phosphatase 74 Lactate Dehydrogenase Troponin T Total Protein 7.0 Albumin 4.4 Globulin 2.6 Albumin/Globulin Ratio 1.7 Triglycerides Procalcitonin 0.05 Urine Color Urine Appearance Urine pH Ur Specific [place] Urine Protein Urine Glucose (UA) Urine Ketones Urine Occult Blood Urine Nitrate Urine Bilirubin Urine Urobilinogen Ur Leukocyte Esterase Urine RBC Urine WBC Ur Squamous Epith Cells Amorphous Crystals Urine Bacteria Urine Mucus Ur Culture Indicated? SARS-CoV-2 (PCR) 04/15/20 18:23 WBC 6.9 RBC 5.05 Hgb 15.7 Hct 47.1 MCV 93.3 MCH 31.1 MCHC 33.3 RDW 12.8 Plt Count 135 L MPV 10.4 Neut % (Auto) 68.8 Lymph % (Auto) 21.2 [place] % (Auto) 7.2 Eos % (Auto) 2.5 Baso % (Auto) 0.3 Lymph # (Auto) 1.47 L [place] # (Auto) 0.50 Eos # (Auto) 0.17 Baso # (Auto) 0.02 Absolute Neutrophils 4.76 VBG Lactic Acid Sodium Potassium Chloride Carbon Dioxide Anion Gap BUN Creatinine GFR Calculation Glucose Uric Acid Calcium Phosphorus Magnesium Total Bilirubin Direct Bilirubin GGT AST ALT Alkaline Phosphatase Lactate Dehydrogenase Troponin T Total Protein Albumin Globulin Albumin/Globulin Ratio Triglycerides Procalcitonin Urine Color Urine Appearance Urine pH Ur Specific [place] Urine Protein Urine Glucose (UA) Urine Ketones Urine Occult Blood Urine Nitrate Urine Bilirubin Urine Urobilinogen Ur Leukocyte Esterase Urine RBC Urine WBC Ur Squamous Epith Cells Amorphous Crystals Urine Bacteria Urine Mucus Ur Culture Indicated? SARS-CoV-2 (PCR) A/P Narrative A/P Narrative: A/P Narrative: Assessment: *Fever of unknown origin: resolved -CXR/UA unremarakble *MARKUS ok CKD II: improved *Encephalopathy superimposed on underlying vascular dementia: 2/2 above vs new CVA *Vascular Dementia *h/o CVA left connell radiata and frontal parietal boundary and older CVA w/left- side weakness arm>Leg: on plavix -is supposed to see Dr. De La Cruz *Depression: *HTN: home lisinopril 10mg *GERD: *Tobacco abuse: *CRISTO on cpap: *chr pain: Plan: -IVF -MRI brain -hold abx, monitor BC -cont Plavix/statin -cont lisinopril -f/u with Dr. De La Cruz as scheduled -home cpap -pt/ot -CM for placement -Smoking cessation counseling -ppx: lovenox/PPI Time Spent With Patient Time: Total time spent is greater than 50% in coordination of care (as documented) at patient's floor/unit and/or counseling patient: QUALITY VTE Deep Vein Thrombosis/Pulmonary Embolism Present on Admission: No
[2020-04-16] MEDS ORDERED: IPRATROPIUM/ALBUTEROL 3 ML AMPUL.NEB NEB PRN (09:16)
[2020-04-16] MEDS ORDERED: POTASSIUM CHLORIDE 40 MEQ in DEXTROSE 5% IN WATER 500 ML IV PRN (09:16)
[2020-04-16] MEDS ORDERED: ACETAMINOPHEN 325 MG TABLET PO PRN (09:16)
[2020-04-16] MEDS ORDERED: POLYETHYLENE GLYCOL 3350 17 GM PACKET PO PRN (09:16)
[2020-04-16] MEDS ORDERED: ONDANSETRON 4 MG/2 ML VIAL IV PRN (09:16)
[2020-04-16] MEDS ORDERED: SENNOSIDES 1 TABLET PO PRN (09:16)
[2020-04-16] MEDS ORDERED: MAGNESIUM SULFATE 2 GM/50 ML BAG IV PRN (09:16)
[2020-04-16] MEDS ORDERED: POTASSIUM CHLORIDE 20 MEQ TABLET PO PRN ×2 (09:16)
[2020-04-16] MEDS ORDERED: LABETALOL 5 MG/ML ML IV PRN (09:21)
[2020-04-16] MEDS: ENOXAPARIN 40 MG/0.4 ML SYRINGE SQ SCH (10:09)
--- NOTE | 2020-04-16 10:32 | Magnetic Resonance Report ---
INDICATION: mental status changes TECHNIQUE: Limited MRI scan for acute stroke evaluation. Sagittal T1-weighted images. Axial FLAIR and diffusion-weighted images COMPARISON: Most recent previous CT scan dated 04/15/2020. Previous CT scans dated 01/14/2020 and 03/01/2018 FINDINGS: Bifrontal encephalomalacia, right worse than left. No restricted diffusion. No acute infarction. No localized mass effect. No interval change. Diffusion weighted images demonstrate decreased signal within the basal ganglion and right thalamus. This is probably secondary to mineralization. This is not an acute abnormality. IMPRESSION: No restricted diffusion. No acute infarction Interpreted and Authenticated by: Harlan Kaplan 04/16/20
[2020-04-16] MEDS ORDERED: traZODone HCL 100 MG TABLET PO PRN (11:23)
--- NOTE | 2020-04-16 11:56 | Discharge Summary ---
Discharge Provider Provider Patient information: Note initiated : 04/16/20 at 11:55 am Service Date, if different from initiated Date: [] Patient: Maurisio Briceno 70 y/o M admitted on 04/16/20 for Shortness of Breath. Chief Complaint: [] Date of admission: 04/16/20 02:18 Discharge date: 04/17/20 Primary care physician: Anna Yates DO Consults: 04/16/20 Consult to Physician [CONS] Stat Comment: Consulting Provider: Jah Bhatti Reason For Exam: Physician to Consult Discharge Meds Discharge Medications Home Medications magnesium hydroxide 30 ml PO DAILYP PRN oral.susp 04/26/17 [Rx Confirmed 04/16/20 Last Taken Unknown] docusate sodium 100 mg capsule 100 mg PO BID PRN #60 cap 06/06/17 [Rx Confirmed 04/16/20 Last Taken Unknown] leg brace #1 each 09/22/18 [Rx Confirmed 04/16/20 Last Taken Unknown] B Complex-Vitamin B12 1 cap PO DAILY 01/17/20 [History Confirmed 04/16/20 Last Taken Unknown] oxybutynin chloride 5 mg tablet 5 mg PO BID #60 tab 02/02/20 [Rx Confirmed 04/16/20 Last Taken Unknown] clopidogrel 75 mg tablet 75 mg PO QDAY #30 tab 02/08/20 [Rx Confirmed 04/16/20 Last Taken Unknown] pantoprazole 40 mg tablet,delayed release 40 mg PO DAILY #30 tab 02/08/20 [Rx Confirmed 04/16/20 Last Taken Unknown] pramipexole 0.75 mg tablet 0.75 mg PO TID #90 tab 02/08/20 [Rx Confirmed 04/16/20 Last Taken Unknown] melatonin 10 mg capsule 20 mg PO HS cap 03/02/20 [History Confirmed 04/16/20 Last Taken Unknown] trazodone 100 mg tablet 200 mg PO HS PRN tab 03/02/20 [History Confirmed 04/16/20 Last Taken Unknown] atorvastatin 10 mg PO QHS 04/16/20 [History Confirmed 04/16/20 Last Taken Unknown] baclofen 20 mg PO DAILY 04/16/20 [History Confirmed 04/16/20 Last Taken Unknown] baclofen 40 mg PO QHS 04/16/20 [History Confirmed 04/16/20 Last Taken Unknown] hydrocodone-acetaminophen 1 tab PO TIDP PRN 04/16/20 [History Confirmed 04/16/20 Last Taken Unknown] lisinopril 10 mg PO DAILY 04/16/20 [History Confirmed 04/16/20 Last Taken Unknown] sertraline 150 mg PO DAILY 04/16/20 [History Confirmed 04/16/20 Last Taken Unknown] COURSE Hospital Course Hospital course: History of present illness: Mr. Briceno is a 70 year old M Presents the ED with increased confusion and inappropriate behaviors per family compared to baseline per family. He also had a fever in the ED. This x-ray and urinalysis unremarkable. This was discussed with Dr. De La Cruz who is schedule a visit because of cerebral vascular disease and he recommended MRI. Is also found to have acute kidney injury and volume depleted. Admission requested for confusion and MRI and acute kidney injury. Renal function improved overnight with IV fluids. Patient feels better this morning. MRI pending. 04/17 Doing well. No overnight events or new complaints. Acute kidney injury resolved. Working with PT this morning. A/P Narrative: Assessment: *Fever of unknown origin: resolved -CXR/UA unremarakble *MARKUS ok CKD II: improved *Encephalopathy superimposed on underlying vascular dementia: 2/2 above vs new CVA *Vascular Dementia *h/o CVA left connell radiata and frontal parietal boundary and older CVA w/left- side weakness arm>Leg: on plavix -is supposed to see Dr. De La Cruz *Depression: *HTN: home lisinopril 10mg *GERD: *Tobacco abuse: *CRISTO on cpap: *chr pain: Discharge diagnosis: Acute kidney injury encephalopathy superimposed on underlying vascular lion Secondary discharge diagnosis: Fever depression history of stroke with left- sided hemiparesis hypertension GERD tobacco abuse obstructive sleep apnea chronic pain Time Spent with Patient Time attestation: Total time spent providing and/or coordinating discharge services: Time spent: Greater than 30 minutes EXAM Constitutional Vitals: Temp Pulse Resp BP Pulse Ox 98.2 F 74 16 162/87 96 04/16/20 09:16 04/16/20 09:16 04/16/20 09:16 04/16/20 09:16 04/16/20 09:18 Discharge Data Data Completed and Pending Labs on day of discharge: Labs from last 24 hours 04/16/20 04/16/20 04/16/20 04:38 04:38 01:00 WBC 9.7 RBC 4.44 L Hgb 14.0 Hct 41.8 MCV 94.1 MCH 31.5 MCHC 33.5 RDW 12.4 Plt Count 137 L MPV 10.3 Neut % (Auto) 73.5 Lymph % (Auto) 17.5 [place] % (Auto) 7.4 Eos % (Auto) 1.3 Baso % (Auto) 0.3 Lymph # (Auto) 1.69 [place] # (Auto) 0.71 Eos # (Auto) 0.13 Baso # (Auto) 0.03 Absolute Neutrophils 7.09 VBG Lactic Acid Sodium 140 Potassium 3.8 Chloride 108 Carbon Dioxide 20 L Anion Gap 12.0 BUN 14 Creatinine 1.2 GFR Calculation 61 Glucose 90 Uric Acid 5.7 Calcium 8.9 Phosphorus 2.0 L Magnesium 2.0 Total Bilirubin 0.4 Direct Bilirubin < 0.2 GGT 23 AST 18 ALT 8 Alkaline Phosphatase 66 Lactate Dehydrogenase 183 Troponin T Total Protein 6.4 Albumin 4.0 Globulin 2.4 Albumin/Globulin Ratio 1.7 Triglycerides 55 Procalcitonin Urine Color Urine Appearance Urine pH Ur Specific [place] Urine Protein Urine Glucose (UA) Urine Ketones Urine Occult Blood Urine Nitrate Urine Bilirubin Urine Urobilinogen Ur Leukocyte Esterase Urine RBC Urine WBC Ur Squamous Epith Cells Amorphous Crystals Urine Bacteria Urine Mucus Ur Culture Indicated? SARS-CoV-2 (PCR) Negative 04/15/20 04/15/20 04/15/20 21:58 18:50 18:23 WBC RBC Hgb Hct MCV MCH MCHC RDW Plt Count MPV Neut % (Auto) Lymph % (Auto) [place] % (Auto) Eos % (Auto) Baso % (Auto) Lymph # (Auto) [place] # (Auto) Eos # (Auto) Baso # (Auto) Absolute Neutrophils VBG Lactic Acid Sodium Potassium Chloride Carbon Dioxide Anion Gap BUN Creatinine GFR Calculation Glucose Uric Acid Calcium Phosphorus Magnesium Total Bilirubin Direct Bilirubin GGT AST ALT Alkaline Phosphatase Lactate Dehydrogenase Troponin T < 0.01 Total Protein Albumin Globulin Albumin/Globulin Ratio Triglycerides Procalcitonin Urine Color Yellow Urine Appearance Clear Urine pH 5.0 Ur Specific [place] 1.025 Urine Protein Negative Urine Glucose (UA) Negative Urine Ketones Negative Urine Occult Blood Negative Urine Nitrate Negative Urine Bilirubin Negative Urine Urobilinogen Negative Ur Leukocyte Esterase Negative Urine RBC 0 Urine WBC 1 Ur Squamous Epith Cells < 1 Amorphous Crystals Few A Urine Bacteria None Urine Mucus Few A Ur Culture Indicated? No SARS-CoV-2 (PCR) Pending 04/15/20 04/15/20 04/15/20 18:23 18:23 18:23 WBC RBC Hgb Hct MCV MCH MCHC RDW Plt Count MPV Neut % (Auto) Lymph % (Auto) [place] % (Auto) Eos % (Auto) Baso % (Auto) Lymph # (Auto) [place] # (Auto) Eos # (Auto) Baso # (Auto) Absolute Neutrophils VBG Lactic Acid 0.9 Sodium 140 Potassium 4.2 Chloride 105 Carbon Dioxide 20 L Anion Gap 15.0 BUN 17 Creatinine 1.6 H GFR Calculation 43 Glucose 99 Uric Acid Calcium 9.3 Phosphorus Magnesium Total Bilirubin 0.4 Direct Bilirubin GGT AST 19 ALT 11 Alkaline Phosphatase 74 Lactate Dehydrogenase Troponin T Total Protein 7.0 Albumin 4.4 Globulin 2.6 Albumin/Globulin Ratio 1.7 Triglycerides Procalcitonin 0.05 Urine Color Urine Appearance Urine pH Ur Specific [place] Urine Protein Urine Glucose (UA) Urine Ketones Urine Occult Blood Urine Nitrate Urine Bilirubin Urine Urobilinogen Ur Leukocyte Esterase Urine RBC Urine WBC Ur Squamous Epith Cells Amorphous Crystals Urine Bacteria Urine Mucus Ur Culture Indicated? SARS-CoV-2 (PCR) 04/15/20 18:23 WBC 6.9 RBC 5.05 Hgb 15.7 Hct 47.1 MCV 93.3 MCH 31.1 MCHC 33.3 RDW 12.8 Plt Count 135 L MPV 10.4 Neut % (Auto) 68.8 Lymph % (Auto) 21.2 [place] % (Auto) 7.2 Eos % (Auto) 2.5 Baso % (Auto) 0.3 Lymph # (Auto) 1.47 L [place] # (Auto) 0.50 Eos # (Auto) 0.17 Baso # (Auto) 0.02 Absolute Neutrophils 4.76 VBG Lactic Acid Sodium Potassium Chloride Carbon Dioxide Anion Gap BUN Creatinine GFR Calculation Glucose Uric Acid Calcium Phosphorus Magnesium Total Bilirubin Direct Bilirubin GGT AST ALT Alkaline Phosphatase Lactate Dehydrogenase Troponin T Total Protein Albumin Globulin Albumin/Globulin Ratio Triglycerides Procalcitonin Urine Color Urine Appearance Urine pH Ur Specific [place] Urine Protein Urine Glucose (UA) Urine Ketones Urine Occult Blood Urine Nitrate Urine Bilirubin Urine Urobilinogen Ur Leukocyte Esterase Urine RBC Urine WBC Ur Squamous Epith Cells Amorphous Crystals Urine Bacteria Urine Mucus Ur Culture Indicated? SARS-CoV-2 (PCR) Discharge Plan Patient/Caregiver Discharge Instructions Activity: increase activity as tolerated Diet: Cardiac Prescriptions: Continued (DME) Knee Support Brace misc See Dose Instructions .ROUTE .MEDSUPPLY Qty: 1 RF: 0 oxybutynin chloride 5 mg tablet 5 mg PO BID Qty: 60 RF: 1 clopidogrel 75 mg tablet 75 mg PO QDAY Qty: 30 RF: 0 pantoprazole 40 mg tablet,delayed release (DR/EC) 40 mg PO DAILY Qty: 30 RF: 0 pramipexole 0.75 mg tablet 0.75 mg PO TID Qty: 90 RF: 0 trazodone 100 mg tablet 200 mg PO HS PRN (Reason: Sleep) RF: 0 docusate sodium 100 MG capsule 100 mg PO BID PRN (Reason: Constipation) Qty: 60 RF: 3 magnesium hydroxide 30 ML suspension 30 ml PO DAILYP PRN (Reason: Constipation) RF: 0 melatonin 10 mg capsule 20 mg PO HS RF: 0 B Complex-Vitamin B12 capsule 1 cap PO DAILY RF: 0 atorvastatin 20 mg Tablet 10 mg PO QHS RF: 0 baclofen 20 mg Tablet 40 mg PO QHS RF: 0 sertraline 100 mg tablet 150 mg PO DAILY RF: 0 lisinopril 10 mg tablet 10 mg PO DAILY RF: 0 hydrocodone-acetaminophen 5-325 mg Tablet 1 tab PO TIDP PRN (Reason: Pain) RF: 0 baclofen 20 mg tablet 20 mg PO DAILY RF: 0 Follow Up Plan Follow up with: Harlan De La Cruz MD [Physician] - Anna Yates DO [Primary Care Provider] - Patient Disposition: Home Health Service Prognosis: Undetermined Overall status at discharge: patient is progressing back to baseline Discharge Orders: Discharge Order (Routine); Ordered 04/17/20 Ordered By: Jah Johnson [facility] VTE Deep Vein Thrombosis/Pulmonary Embolism Present on Admission: No
[2020-04-16] MEDS: HYDROcodone/APAP 5/325MG TABLET PO PRN ×2 (13:25→22:08)
[2020-04-16] MEDS: 0.9 % SODIUM CHLORIDE 10 ML SYRINGE IV SCH ×2 (13:25→21:58)
[2020-04-16] MEDS: 0.9 % SODIUM CHLORIDE 1,000 ML IV SCH (13:52)
[2020-04-16] MEDS: PRAMIPEXOLE 0.25 MG TABLET PO SCH ×2 (14:40→21:54)
[2020-04-16] MEDS ORDERED: ATORVASTATIN 20 MG TABLET PO SCH (21:00)
[2020-04-16] MEDS ORDERED: BACLOFEN 10 MG TABLET PO SCH (21:00)
[2020-04-16] MEDS ORDERED: MELATONIN 3 MG TABLET PO SCH (21:00)
[2020-04-16] MEDS: DOCUSATE SODIUM 100 MG CAPSULE PO SCH (21:55)
[2020-04-16] MEDS: OXYBUTYNIN CHLORIDE 5 MG TABLET PO SCH (21:55)
[2020-04-17] MEDS: 0.9 % SODIUM CHLORIDE 1,000 ML IV SCH (02:31)
[2020-04-17] MEDS: HYDROcodone/APAP 5/325MG TABLET PO PRN (02:49)
[2020-04-17] MEDS: 0.9 % SODIUM CHLORIDE 10 ML SYRINGE IV SCH (04:14)
--- NOTE | 2020-04-17 07:24 | Internal Med Progress Note ---
SUBJECTIVE Subjective Patient information: Note initiated : 04/17/20 at 7:22 am Service Date, if different from initiated Date: [] Patient: Maurisio Briceno 70 y/o M admitted on 04/16/20 for Shortness of Breath. Chief Complaint: [] Interval history: History of present illness: Mr. Briceno is a 70 year old M Presents the ED with increased confusion and inappropriate behaviors per family compared to baseline per family. He also had a fever in the ED. This x-ray and urinalysis unremarkable. This was discussed with Dr. De La Cruz who is schedule a visit because of cerebral vascular disease and he recommended MRI. Is also found to have acute kidney injury and volume depleted. Admission requested for confusion and MRI and acute kidney injury. Renal function improved overnight with IV fluids. Patient feels better this morning. MRI pending. 04/17 Doing well. No overnight events or new complaints. Acute kidney injury resolved. Working with PT this morning. Review of Systems: denies headache/fever/chills/nausea/vomiting/chest or abdominal pa in/cough/dyspnea/diarrhea. Otherwise see above. Constitutional Vitals: Vital Signs Temp Pulse Resp BP Pulse Ox 98.4 F 62 18 101/60 92 04/17/20 04:00 04/17/20 04:00 04/17/20 04:00 04/17/20 04:00 04/17/20 04:00 Period Temp Pulse Resp BP Sys/Tsang Pulse Ox Last 24 Hr 97.4 F-99.2 F 55-84 16-18 100-179/60-87 92-100 Intake and Output 04/16/20 04/17/20 04/17/20 21:59 05:59 13:59 Intake Total 840 1400 Output Total 150 400 Balance 690 1000 Weight 58.513 kg Intake & Output: Intake & Output 04/16/20 04/17/20 04/17/20 21:59 05:59 13:59 Intake Total 840 1400 Output Total 150 400 Balance 690 1000 Weight 58.513 kg Intake: IV 1000 Sodium Chloride 0.9% 1,000 ml @ 1000 70 mls/hr IV .[id number] [facility] Rx#: [id number] Oral 840 400 Output: Void Amount 150 400 Other: Urine Appearance Sediment Clear Urine Color Bright Yellow Light Genna Urine Odor Normal Exam: general: Alert, Awake, No acute Distress Eyes/N/T: EOMI, Head/Neck: neck supple, CV: RRR, No murmurs, Pulm: Clear b/l, no wheezing/rhonchi/rales Abd: soft, nontender, +BS x4 Ext: no clubbing/cyanosis/edema Neuro: Alert, chronic left side hemiparesis Skin: warm/dry OBJ DATA Labs CBC & Chem 7: 04/16/20 04:38 04/17/20 05:44 Labs: Abnormal Lab Results 04/16/20 04/16/20 04/15/20 04:38 04:38 21:58 RBC 4.44 L Plt Count 137 L Lymph # (Auto) Carbon Dioxide 20 L Creatinine Phosphorus 2.0 L Amorphous Crystals Few A Urine Mucus Few A 04/15/20 04/15/20 18:23 18:23 RBC Plt Count 135 L Lymph # (Auto) 1.47 L Carbon Dioxide 20 L Creatinine 1.6 H Phosphorus Amorphous Crystals Urine Mucus Meds: Medications Acetaminophen (Tylenol) 650 mg PO Q6HP PRN PRN Reason: PAIN/FEVER > 101 Last Admin: 04/16/20 10:10 Dose: 650 mg Documented by: Hydrocodone Bitart/Acetaminophen ([place] 5/325mg) 1 tab PO TIDP PRN; Protocol PRN Reason: Pain Last Admin: 04/17/20 02:49 Dose: 1 tab Documented by: Albuterol/Ipratropium (Duoneb) 3 ml NEB Q4HP PRN PRN Reason: Shortness Of Breath Atorvastatin Calcium (Lipitor) 20 mg PO [facility] Last Admin: 04/16/20 21:54 Dose: 20 mg Documented by: Baclofen (Lioresal) 40 mg PO HS [facility] Last Admin: 04/16/20 21:54 Dose: 40 mg Documented by: Baclofen (Lioresal) 20 mg PO DAILY [facility] Clopidogrel Bisulfate (Plavix) 75 mg PO QDAY [facility] Docusate Sodium (Colace) 100 mg PO BID [facility] Last Admin: 04/16/20 21:55 Dose: 100 mg Documented by: Enoxaparin Sodium (Lovenox) 40 mg SQ DAILY [facility] Last Admin: 04/16/20 10:09 Dose: 40 mg Documented by: Potassium Chloride 40 meq/ (Dextrose) 520 mls @ 130 mls/hr IV UD PRN PRN Reason: Potassium < 3 Magnesium Sulfate (Magnesium Sulfate) 2 gm in 50 mls @ 50 mls/hr IV UD PRN PRN Reason: Magnesium </= 1.6 Sodium Chloride (Sodium Chloride 0.9%) 1,000 mls @ 70 mls/hr IV .[id number] [facility] Last Admin: 04/17/20 02:31 Dose: 70 mls/hr Documented by: Labetalol HCl (Trandate) 0 mg IV Q2HP PRN PRN Reason: Hypertension Melatonin (Melatonin 3mg Tablet) 9 mg PO HS [facility] Last Admin: 04/16/20 21:55 Dose: 9 mg Documented by: Ondansetron HCl (Zofran) 4 mg IV Q4HP PRN PRN Reason: Nausea And Vomiting Oxybutynin Chloride (Ditropan) 5 mg PO BID [facility] Last Admin: 04/16/20 21:55 Dose: 5 mg Documented by: Pantoprazole Sodium (Protonix) 40 mg PO ACB [facility] Polyethylene Glycol (Miralax) 17 gm PO DAILYP PRN PRN Reason: Constipation Potassium Chloride (Kdur) 40 meq PO UD PRN PRN Reason: Potssium is 3-3.5 Potassium Chloride (Kdur) 40 meq PO UD PRN PRN Reason: Potassium < 3 Pramipexole Dihydrochloride (Mirapex) 0.75 mg PO TID [facility] Last Admin: 04/16/20 21:54 Dose: 0.75 mg Documented by: Senna (Senokot) 2 tab PO DAILYP PRN PRN Reason: Constipation Sertraline HCl (Zoloft) 150 mg PO DAILY [facility] Sodium Chloride (Saline Flush) 10 ml IV Q8 [facility] Last Admin: 04/17/20 04:14 Dose: Not Given Documented by: Trazodone HCl (Desyrel) 200 mg PO HSP PRN PRN Reason: Sleep Last Admin: 04/16/20 22:30 Dose: 200 mg Documented by: A/P Narrative A/P Narrative: A/P Narrative: Assessment: *Fever of unknown origin: in ED only, non since -CXR/UA unremarakble *MARKUS ok CKD II: improved *Encephalopathy superimposed on underlying vascular dementia: 2/2 above vs new CVA -MRI brain no new infarct *Vascular Dementia *h/o CVA left connell radiata and frontal parietal boundary and older CVA w/left- side weakness arm>Leg: on plavix -is supposed to see Dr. De La Cruz *Depression: *HTN: home lisinopril 10mg *GERD: *Tobacco abuse: *CRISTO on cpap: *chr pain: Plan: -hold abx, monitor BC -cont Plavix/statin -cont lisinopril -f/u with Dr. De La Cruz as scheduled -home cpap -pt/ot -CM for placement -Smoking cessation counseling -ppx: lovenox/PPI Time Spent With Patient Time: Total time spent is greater than 50% in coordination of care (as documented) at patient's floor/unit and/or counseling patient: QUALITY VTE Deep Vein Thrombosis/Pulmonary Embolism Present on Admission: No
[2020-04-17] MEDS ORDERED: PANTOPRAZOLE 40 MG TABLET PO SCH (07:30)
[2020-04-17 08:06] LABS: ALT/SGPT 8 U/L (<40); AST/SGOT 17 U/L (<40); Albumin 3.6 gm/dL (3.2-5.2); Albumin/Globulin Ratio 1.9 (1.0-2.3); Alkaline Phosphatase 55 U/L (39-117); Bilirubin,Direct < 0.2 mg/dL (<0.3); Bilirubin,Total 0.3 mg/dL (0.1-1.0); Blood Urea Nitrogen 16 mg/dL (8-23); Calcium 8.1 mg/dL (8.6-10.4); Carbon Dioxide 24 mmol/L (22-30); Chloride 110 mmol/L (96-108); Globulin 1.9 gm/dL (2.2-3.7); Glomerular Filtration Rate 68; Glucose 83 mg/dL (70-105); Lactate Dehydrogenase 139 U/L (135-225); Triglycerides 63 mg/dL (<150); Uric Acid 4.4 mg/dL (2.5-8.0)
[2020-04-17] MEDS: PRAMIPEXOLE 0.25 MG TABLET PO SCH (08:47)
[2020-04-17] MEDS: OXYBUTYNIN CHLORIDE 5 MG TABLET PO SCH (08:47)
[2020-04-17] MEDS: DOCUSATE SODIUM 100 MG CAPSULE PO SCH (08:48)
[2020-04-17] MEDS: ENOXAPARIN 40 MG/0.4 ML SYRINGE SQ SCH (08:48)
[2020-04-17] MEDS ORDERED: CLOPIDOGREL 75 MG TABLET PO SCH (09:00)
[2020-04-17] MEDS ORDERED: SERTRALINE 50 MG TABLET PO SCH (09:00)
[2020-04-17] MEDS ORDERED: BACLOFEN 10 MG TABLET PO SCH (09:00)
[2020-04-17] MEDS ORDERED: FLU VACC QS2020-21(6MOS UP)/PF 60 MCG/0.5 ML SYRINGE IM ONE (10:00)
== END 2020-04-17 15:30 | disposition home health service (06) ==
LOC: MEDSUR 17:18 → ED 17:18 → MEDSUR 04-16 02:18
PROVIDERS: ADMIT Internal Medicine; ATTEND Internal Medicine

== ENCOUNTER 2020-06-12 13:27 | Inpatient (IN) ==
[2020-06-12] MEDS ORDERED: 0.9 % SODIUM CHLORIDE 1,000 ML IV SCH (13:45)
[2020-06-12] MEDS ORDERED: DIAZEPAM 10 MG/2 ML SYRINGE IV ONE (13:53)
--- NOTE | 2020-06-12 14:04 | Emergency Department Note ---
Altered Mental Status HPI General Chief Complaint: Altered Mental Status Stated Complaint: confusion, fever Time Seen by Provider: 06/12/20 13:36 Mode of arrival: EMS Limitations: altered mental status History of Present Illness HPI Narrative: Narrative: Patient is a 70-year-old male that comes into the emergency department today by EMS. EMS was called by the patient's . Patient's reports that patient was at baseline until 10:00 today when he became confused and was complaining of difficulty with urination. Patient apparently was reporting that he wanted a catheter. Patient normally does not self cath at home. Temperature by EMS was 101.0. Patient does have a history of altered mental status in the past. He has had previous CVA with left sided weakness. He denies any headache, weakness, cough, shortness of breath, or difficulty breathing. He does report that he took his regular hydrocodone today. He is having worsening cramps and pain in his lower extremities. He reports that he has restless legs at this t moshe. He has not had any abdominal pain, nausea, vomiting, diarrhea, melena, or hematochezia. He reports that he has not been drinking much water over the last several days, and is dehydrated. He denies taking any alcohol or illict substances today. Related Data Home Medications Medication Instructions Recorded Confirmed melatonin 10 mg capsule 20 mg PO HS cap 03/02/20 06/07/20 baclofen 20 mg PO DAILY 04/16/20 06/12/20 Previous Rx's Medication Instructions Recorded atorvastatin 20 mg tablet 10 mg PO QHS #90 tab 05/16/20 clopidogrel 75 mg tablet 75 mg PO QDAY #30 tab 05/16/20 docusate sodium 100 mg capsule 100 mg PO BID PRN #60 cap 05/16/20 lisinopril 10 mg tablet 10 mg PO DAILY #90 tab 05/16/20 oxybutynin chloride 5 mg tablet 5 mg PO BID #60 tab 05/16/20 pantoprazole 40 mg tablet,delayed 40 mg PO DAILY #30 tab 05/16/20 release pramipexole 0.75 mg tablet 0.75 mg PO TID #90 tab 05/16/20 sertraline 100 mg tablet 150 mg PO DAILY #90 tab 05/16/20 trazodone 100 mg tablet 200 mg PO HS PRN #30 tab 11/23/20 oxycodone-acetaminophen 10 mg-325 1 tab PO BID PRN #60 tab 06/03/20 mg tablet Allergies Allergy/AdvReac Type Severity Reaction Status Date / Time No Known Drug Allergies Allergy Unverified 06/07/20 13:41 Review of Systems ROS ROS Narrative: Narrative: All systems ED: reviewed and negative except as stated. PFSH Narrative Patient History Narrative: Narrative: Medical/Surgical/Family History All Active Problems (Updated 06/12/20 @ 17:09 by Radha Fraser MD) Metabolic acidosis (Acute) Encounter for tobacco use cessation counseling (Acute) Hospital discharge follow-up (Acute) Altered mental status (Acute) Fever of unknown origin (Acute) History of cerebrovascular accident (Acute) Acute renal failure (ARF) (Acute) Chronic anticoagulation (Acute) H/O: stroke with residual effects (Acute) Acute CVA (cerebrovascular accident) (Acute) Unable to ambulate (Chronic) Anemia (Chronic) AAA (abdominal aortic aneurysm) (Chronic) Chronic pain (Chronic) Contracture, left hand (Acute) Wellness examination (Chronic) Sleep apnea (Acute) Marijuana abuse (Chronic) Tobacco abuse (Chronic) Joint pain (Chronic) Insomnia (Chronic) Depression (Chronic) Muscle pain (Chronic) Arthritis (Chronic) Hypertension (Chronic) Left-sided muscle weakness (Chronic) Stroke (Chronic ~2014) Medical History (Updated 06/12/20 @ 17:09 by Radha Fraser MD) AAA (abdominal aortic aneurysm) (Chronic) Anemia (Chronic) Arthritis (Chronic) Chronic pain (Chronic) r/t contractures following stroke Depression (Chronic) Encounter for tobacco use cessation counseling (Acute) H/O: stroke with residual effects (Acute) Hospital discharge follow-up (Acute) Insomnia (Chronic) Joint pain (Chronic) Left-sided muscle weakness (Chronic) Marijuana abuse (Chronic) Muscle pain (Chronic) Stroke (Chronic ~2014) April 2015 Tobacco abuse (Chronic) Unable to ambulate (Chronic) Wellness examination (Chronic) 06/06/17 Surgical History No pertinent past surgical history (Chronic) Family History Father Cancer Social History Smoking Status: Former smoker Alcohol Intake Frequency: does not drink Substance Use: marijuana Exam Narrative Narrative: Narrative: General Limitations: altered mental status General appearance: Present alert, anxious, thin and other (Patient is very fidgety moving his lower extremities and grabbing thighs on the left and right leg.) Head Head: Present atraumatic, normocephalic and normal inspection Eye Eye: Present normal appearance, PERRL, EOMI and conjunctival injection; Absent scleral icterus, nystagmus, periorbital swelling and periorbital tenderness ENT ENT: Present normal oropharynx, mucous membranes dry and normal external ear exam; Absent nasal congestion Neck Neck: Present normal inspection and full ROM; Absent tenderness and lymphadenopathy Chest Chest: Present normal inspection and symmetric chest wall rise; Absent tenderness Respiratory Respiratory: Present normal lung sounds bilaterally; Absent respiratory distres s, rales/crackles, wheezes, stridor and accessory muscle use Cardiovascular Cardiovascular: Present regular rate, normal rhythm and normal heart sounds Adbominal Abdominal: Present soft; Absent distention, tenderness, guarding and rigidity : Present normal inspection and circumcised; Absent urethral discharge and scrotal swelling Extremities Extremities: Present normal inspection, full ROM and normal capillary refill; Absent pedal edema, pretibial edema, calf tenderness and cyanosis Back Back: Present normal inspection and full ROM; Absent spinous process tenderness Expanded Neurological Patient oriented to: Present person and place; Absent time Speech: Present fluid speech CRANIAL NERVES: EOM function (II, III, IV, ): Normal, facial sensation (V): Normal, facial palsy (VII): Normal, gag reflex (IX): Normal, spinal accessory function (XI): Normal and tongue deviation (XII): Normal Motor strength - LUE: 4/5 Motor strength - RUE: 5/5 Motor strength - LLE: 5/5 Motor strength - RLE: 5/5 SENSORY EXAM UPPER EXTREMITY: Normal: light touch SENSORY EXAM LOWER EXTREMITY: Normal: light touch Coma Scale Eye Opening: Spontaneous Coma Scale Motor Response: Obeys Commands Coma Scale Verbal Response: Confused Coma Scale Total: 14 Psychiatric Psychiatric: Present agitated and anxious Skin Skin: Present warm (WNL), dry, intact and normal color Course Course Course Narrative: 1400 -patient very restless, agitated, and trying to climb out of the exam bed. Patient being redirected. He is very restless, and I have ordered and given 2 mg of diazepam for his muscle spasms and this may also help with his anxiety. Patient was placed in soft restraint today at 1400 for his safety as he is trying to get off of the exam table which would result in fall as well as pulling out his IV. Patient is dehydrated, and is currently receiving IV normal saline. 1430 -patient resting comfortably in room T7. Patient's anxiety and restlessness is decreased. He is in no distress at this time. Labs currently pending. Patient receiving IV fluids. 1540 -patient was given 1 mg of lorazepam for his anxiety. He is still very anxious will repeat 1 more milligram of lorazepam. Have ordered a head CT scan to be completed. 1635 -head CT was read today by Dr. Nowak, and was reported to myself s howing large old infarcts in the MCA. No acute findings on the head CT today. 1700 -patient is in no distress. He is currently no longer needing any soft restraints. I was able to consult with processing tech, Dr. Fraser who is on this evening. Dr. Fraser will plan on ordering a renal ultrasound for the patient to be done that can be done tomorrow. He recommended patient admitted for observation. Currently awaiting a return phone call from hospitalist, Dr. Bhatti. Vital Signs Vital signs: Vital Signs Temperature 101 F H 06/12/20 13:31 Pulse Rate 100 H 06/12/20 13:31 Blood Pressure 138/76 06/12/20 13:31 Temperature 98.7 F 06/12/20 18:14 Pulse Rate 60 06/12/20 18:09 Respiratory Rate 15 06/12/20 18:09 Blood Pressure 127/58 06/12/20 18:03 Pulse Oximetry (%) 95 06/12/20 18:09 [facility] Narrative Medical decision making narrative: Narrative: Patient presented to the emergency department today with increased confusion and inappropriate behavior where he was very fidgety and restless. Patient had a very similar presentation March of this year with acute renal failure. He was admitted in the hospital in March and was given IV fluids for hydration. His renal function improved, and he was discharged home. Today patient presents and was dehydrated. He appeared to improve somewhat after receiving 2 L of fluid IV here in the emergency department. 1 additional liter was ordered for a total of 3 L. His chest x-ray today is normal, and head CT was reported with old infarcts with no new findings. Patient's renal funct ion has worsened where his creatinine is 2.1, and GFR of 31. This could be related to his dehydration. He also had a concern of not able to void, however bladder scan revealed 81 cc. Patient was straight cathed and had approximately 150 cc output. Patient does not have any leukocytosis today. His lactic acid is normal. Electrolytes are rather unremarkable. Patient did receive lorazepam here in the emergency department as he was very restless. He did improve after receiving the lorazepam where he was resting comfortably. Patient does take oxycodone and with worsening renal function perhaps could be having some delirium effects from the oxycodone. I was able to consult with nephrology today, and nephrology plans on ordering a renal ultrasound to be done. I was able to talk with ho spitalist today, and Dr. Bhatti does accept the patient to be admitted inpatient to [facility] here at [facility]. Lab Data Lab results reviewed: Yes I reviewed the patient's lab results. Result diagrams: 06/12/20 13:57 06/12/20 13:57 Labs: Lab Results 06/12/20 06/12/20 06/12/20 Range/Units 13:57 13:57 13:57 WBC 10.6 (4.5-11.0) K/mcL RBC 5.08 (4.50-5.90) M/mcL Hgb 15.6 (13.5-16.5) g/dL Hct 47.4 (41.0-55.0) % POC Hct 47 (41-55) % MCV 93.3 (80.0-100.0) fL MCH 30.7 (26.0-34.0) pg MCHC 32.9 (31.0-36.0) g/dL RDW 13.0 (11.5-14.5) % Plt Count 163 (140-440) K/mcL MPV 10.4 (7.4-10.4) fL Neut % (Auto) 71.6 (38.0-78.0) % Lymph % (Auto) 20.1 (15.0-49.0) % [place] % (Auto) 6.7 (1.0-12.0) % Eos % (Auto) 1.3 (0.0-7.0) % Baso % (Auto) 0.3 (0.0-2.0) % Lymph # (Auto) 2.13 (1.50-4.80) K/mcL [place] # (Auto) 0.71 (0.10-0.90) K/mcL Eos # (Auto) 0.14 (0.00-0.70) K/mcL Baso # (Auto) 0.03 (0.00-0.20) K/mcL Absolute Neutrophils 7.58 (1.80-8.00) K/mcL VBG Lactic Acid 2.0 (0.5-2.0) mmol/L POC Sodium 144 (133-145) mEq/L Sodium 143 (133-145) mmol/L POC Potassium 4.3 (3.3-5.1) mEql/L Potassium 4.4 (3.3-5.1) mmol/L POC Chloride 112 H (96-108) mEq/L Chloride 105 (96-108) mmol/L Carbon Dioxide 19 L (22-30) mmol/L POC Total CO2 22 (22-30) mmol/L Anion Gap 19.0 H (8.0-16.0) POC BUN 37 H (6-20) mg/dL BUN 33 H (8-23) mg/dL Creatinine 2.1 H (0.7-1.2) mg/dL POC Creatinine 2.3 H (0.6-1.2) mg/dL GFR Calculation 31 Glucose 113 H (70-105) mg/dL POC Glucose 113 H (70-105) mg/dL Calcium 9.6 (8.6-10.4) mg/dL POC WB Ioniz Calcium 1.13 L (1.16-1.32) mmEq/L Magnesium (1.6-2.5) mg/dL Total Bilirubin 0.3 (0.1-1.0) mg/dL AST 16 (<40) U/L ALT 9 (<40) U/L Alkaline Phosphatase 76 (39-117) U/L Ammonia (16-60) umol/L Total Creatine Kinase (24-195) U/L C-Reactive Protein (0.03-0.80) mg/dL Total Protein 7.3 (5.9-8.4) gm/dL Albumin 4.6 (3.2-5.2) gm/dL Globulin 2.7 (2.2-3.7) gm/dL Albumin/Globulin Ratio 1.7 (1.0-2.3) Urine Color Urine Appearance (Clear) Urine pH (5.0-9.0) Ur Specific [place] (1.000-1.035) Urine Protein (Negative) mg/dL Urine Glucose (UA) (Negative) mg/dL Urine Ketones (Negative) mg/dL Urine Occult Blood (Negative) mg/dL Urine Nitrate (Negative) Urine Bilirubin (Negative) mg/dL Urine Urobilinogen mg/dL Ur Leukocyte Esterase (Negative) /ug Urine RBC (0-1) /hpf Urine WBC (0-4) /hpf Ur Squamous Epith Cells (0-4) /hpf Calcium Oxalate Crystal (None) /hpf Urine Bacteria (0) /hpf Hyaline Casts (0-2) /lph Urine Mucus (None) /hpf Ur Culture Indicated? Urine Opiates Screen Ur Oxycodone Screen Urine Methadone Screen Ur Barbiturates Screen Ur Phencyclidine Scrn Ur Amphetamines Screen U Benzodiazepines Scrn Urine Cocaine Screen U Marijuana (THC) Screen Ethyl Alcohol (<0.010) gm/dL 06/12/20 06/12/20 06/12/20 Range/Units 13:57 13:57 13:57 WBC (4.5-11.0) K/mcL RBC (4.50-5.90) M/mcL Hgb (13.5-16.5) g/dL Hct (41.0-55.0) % POC Hct (41-55) % MCV (80.0-100.0) fL MCH (26.0-34.0) pg MCHC (31.0-36.0) g/dL RDW (11.5-14.5) % Plt Count (140-440) K/mcL MPV (7.4-10.4) fL Neut % (Auto) (38.0-78.0) % Lymph % (Auto) (15.0-49.0) % [place] % (Auto) (1.0-12.0) % Eos % (Auto) (0.0-7.0) % Baso % (Auto) (0.0-2.0) % Lymph # (Auto) (1.50-4.80) K/mcL [place] # (Auto) (0.10-0.90) K/mcL Eos # (Auto) (0.00-0.70) K/mcL Baso # (Auto) (0.00-0.20) K/mcL Absolute Neutrophils (1.80-8.00) K/mcL VBG Lactic Acid (0.5-2.0) mmol/L POC Sodium (133-145) mEq/L Sodium (133-145) mmol/L POC Potassium (3.3-5.1) mEql/L Potassium (3.3-5.1) mmol/L POC Chloride (96-108) mEq/L Chloride (96-108) mmol/L Carbon Dioxide (22-30) mmol/L POC Total CO2 (22-30) mmol/L Anion Gap (8.0-16.0) POC BUN (6-20) mg/dL BUN (8-23) mg/dL Creatinine (0.7-1.2) mg/dL POC Creatinine (0.6-1.2) mg/dL GFR Calculation Glucose (70-105) mg/dL POC Glucose (70-105) mg/dL Calcium (8.6-10.4) mg/dL POC WB Ioniz Calcium (1.16-1.32) mmEq/L Magnesium 2.3 (1.6-2.5) mg/dL Total Bilirubin (0.1-1.0) mg/dL AST (<40) U/L ALT (<40) U/L Alkaline Phosphatase (39-117) U/L Ammonia (16-60) umol/L Total Creatine Kinase 66 (24-195) U/L C-Reactive Protein 0.10 (0.03-0.80) mg/dL Total Protein (5.9-8.4) gm/dL Albumin (3.2-5.2) gm/dL Globulin (2.2-3.7) gm/dL Albumin/Globulin Ratio (1.0-2.3) Urine Color Urine Appearance (Clear) Urine pH (5.0-9.0) Ur Specific [place] (1.000-1.035) Urine Protein (Negative) mg/dL Urine Glucose (UA) (Negative) mg/dL Urine Ketones (Negative) mg/dL Urine Occult Blood (Negative) mg/dL Urine Nitrate (Negative) Urine Bilirubin (Negative) mg/dL Urine Urobilinogen mg/dL Ur Leukocyte Esterase (Negative) /ug Urine RBC (0-1) /hpf Urine WBC (0-4) /hpf Ur Squamous Epith Cells (0-4) /hpf Calcium Oxalate Crystal (None) /hpf Urine Bacteria (0) /hpf Hyaline Casts (0-2) /lph Urine Mucus (None) /hpf Ur Culture Indicated? Urine Opiates Screen Ur Oxycodone Screen Urine Methadone Screen Ur Barbiturates Screen Ur Phencyclidine Scrn Ur Amphetamines Screen U Benzodiazepines Scrn Urine Cocaine Screen U Marijuana (THC) Screen Ethyl Alcohol (<0.010) gm/dL 06/12/20 06/12/20 06/12/20 Range/Units 14:15 14:20 14:30 WBC (4.5-11.0) K/mcL RBC (4.50-5.90) M/mcL Hgb (13.5-16.5) g/dL Hct (41.0-55.0) % POC Hct (41-55) % MCV (80.0-100.0) fL MCH (26.0-34.0) pg MCHC (31.0-36.0) g/dL RDW (11.5-14.5) % Plt Count (140-440) K/mcL MPV (7.4-10.4) fL Neut % (Auto) (38.0-78.0) % Lymph % (Auto) (15.0-49.0) % [place] % (Auto) (1.0-12.0) % Eos % (Auto) (0.0-7.0) % Baso % (Auto) (0.0-2.0) % Lymph # (Auto) (1.50-4.80) K/mcL [place] # (Auto) (0.10-0.90) K/mcL Eos # (Auto) (0.00-0.70) K/mcL Baso # (Auto) (0.00-0.20) K/mcL Absolute Neutrophils (1.80-8.00) K/mcL VBG Lactic Acid (0.5-2.0) mmol/L POC Sodium (133-145) mEq/L Sodium (133-145) mmol/L POC Potassium (3.3-5.1) mEql/L Potassium (3.3-5.1) mmol/L POC Chloride (96-108) mEq/L Chloride (96-108) mmol/L Carbon Dioxide (22-30) mmol/L POC Total CO2 (22-30) mmol/L Anion Gap (8.0-16.0) POC BUN (6-20) mg/dL BUN (8-23) mg/dL Creatinine (0.7-1.2) mg/dL POC Creatinine (0.6-1.2) mg/dL GFR Calculation Glucose (70-105) mg/dL POC Glucose (70-105) mg/dL Calcium (8.6-10.4) mg/dL POC WB Ioniz Calcium (1.16-1.32) mmEq/L Magnesium (1.6-2.5) mg/dL Total Bilirubin (0.1-1.0) mg/dL AST (<40) U/L ALT (<40) U/L Alkaline Phosphatase (39-117) U/L Ammonia 43 (16-60) umol/L Total Creatine Kinase (24-195) U/L C-Reactive Protein (0.03-0.80) mg/dL Total Protein (5.9-8.4) gm/dL Albumin (3.2-5.2) gm/dL Globulin (2.2-3.7) gm/dL Albumin/Globulin Ratio (1.0-2.3) Urine Color Yellow Urine Appearance Hazy A (Clear) Urine pH 5.0 (5.0-9.0) Ur Specific [place] 1.023 (1.000-1.035) Urine Protein 30 A (Negative) mg/dL Urine Glucose (UA) Negative (Negative) mg/dL Urine Ketones Negative (Negative) mg/dL Urine Occult Blood 0.20 (Negative) mg/dL Urine Nitrate Negative (Negative) Urine Bilirubin Negative (Negative) mg/dL Urine Urobilinogen Negative mg/dL Ur Leukocyte Esterase Negative (Negative) /ug Urine RBC 6 H (0-1) /hpf Urine WBC 2 (0-4) /hpf Ur Squamous Epith Cells 0 (0-4) /hpf Calcium Oxalate Crystal Few A (None) /hpf Urine Bacteria None (0) /hpf Hyaline Casts 11 H (0-2) /lph Urine Mucus Few A (None) /hpf Ur Culture Indicated? No Urine Opiates Screen Ur Oxycodone Screen Urine Methadone Screen Ur Barbiturates Screen Ur Phencyclidine Scrn Ur Amphetamines Screen U Benzodiazepines Scrn Urine Cocaine Screen U Marijuana (THC) Screen Ethyl Alcohol 0.010 H (<0.010) gm/dL 06/12/20 Range/Units 15:14 WBC (4.5-11.0) K/mcL RBC (4.50-5.90) M/mcL Hgb (13.5-16.5) g/dL Hct (41.0-55.0) % POC Hct (41-55) % MCV (80.0-100.0) fL MCH (26.0-34.0) pg MCHC (31.0-36.0) g/dL RDW (11.5-14.5) % Plt Count (140-440) K/mcL MPV (7.4-10.4) fL Neut % (Auto) (38.0-78.0) % Lymph % (Auto) (15.0-49.0) % [place] % (Auto) (1.0-12.0) % Eos % (Auto) (0.0-7.0) % Baso % (Auto) (0.0-2.0) % Lymph # (Auto) (1.50-4.80) K/mcL [place] # (Auto) (0.10-0.90) K/mcL Eos # (Auto) (0.00-0.70) K/mcL Baso # (Auto) (0.00-0.20) K/mcL Absolute Neutrophils (1.80-8.00) K/mcL VBG Lactic Acid (0.5-2.0) mmol/L POC Sodium (133-145) mEq/L Sodium (133-145) mmol/L POC Potassium (3.3-5.1) mEql/L Potassium (3.3-5.1) mmol/L POC Chloride (96-108) mEq/L Chloride (96-108) mmol/L Carbon Dioxide (22-30) mmol/L POC Total CO2 (22-30) mmol/L Anion Gap (8.0-16.0) POC BUN (6-20) mg/dL BUN (8-23) mg/dL Creatinine (0.7-1.2) mg/dL POC Creatinine (0.6-1.2) mg/dL GFR Calculation Glucose (70-105) mg/dL POC Glucose (70-105) mg/dL Calcium (8.6-10.4) mg/dL POC WB Ioniz Calcium (1.16-1.32) mmEq/L Magnesium (1.6-2.5) mg/dL Total Bilirubin (0.1-1.0) mg/dL AST (<40) U/L ALT (<40) U/L Alkaline Phosphatase (39-117) U/L Ammonia (16-60) umol/L Total Creatine Kinase (24-195) U/L C-Reactive Protein (0.03-0.80) mg/dL Total Protein (5.9-8.4) gm/dL Albumin (3.2-5.2) gm/dL Globulin (2.2-3.7) gm/dL Albumin/Globulin Ratio (1.0-2.3) Urine Color Urine Appearance (Clear) Urine pH (5.0-9.0) Ur Specific [place] (1.000-1.035) Urine Protein (Negative) mg/dL Urine Glucose (UA) (Negative) mg/dL Urine Ketones (Negative) mg/dL Urine Occult Blood (Negative) mg/dL Urine Nitrate (Negative) Urine Bilirubin (Negative) mg/dL Urine Urobilinogen mg/dL Ur Leukocyte Esterase (Negative) /ug Urine RBC (0-1) /hpf Urine WBC (0-4) /hpf Ur Squamous Epith Cells (0-4) /hpf Calcium Oxalate Crystal (None) /hpf Urine Bacteria (0) /hpf Hyaline Casts (0-2) /lph Urine Mucus (None) /hpf Ur Culture Indicated? Urine Opiates Screen None detected Ur Oxycodone Screen Suspect positive A Urine Methadone Screen None detected Ur Barbiturates Screen None detected Ur Phencyclidine Scrn None detected Ur Amphetamines Screen Suspect positive A U Benzodiazepines Scrn None detected Urine Cocaine Screen None detected U Marijuana (THC) Screen None detected Ethyl Alcohol (<0.010) gm/dL Radiology Data Radiology results narrative: Ordering Physician: Jimmy Doherty Date of Service: 06/12/20 Procedure(s): XR chest 1V portable Accession Number(s): [id number] CLINICAL INFORMATION: Acute mental status change COMPARISON: 04/15/2020 TECHNIQUE: PA and Lateral views FINDINGS: The heart size, mediastinum and pulmonary vessels are unremarkable. The lungs are clear. There are no effusions. The bones and soft tissues are within normal limits. IMPRESSION: Normal chest. Interpreted and Authenticated by: Harlan Nowak 06/12/20 EKG Data EKG #1: EKG attestation: Yes I reviewed and interpreted this EKG. EKG shows normal: sinus rhythm Rate: normal Discharge Plan Patient/Caregiver Discharge Instructions Pt seen by [employer]/PA only: No Clinical Impression: Acute renal failure (ARF), H/O: stroke with residual effects, Altered mental status Patient Disposition: Xfer As Inpt (TS) Condition: Fair Discharge Date/Time: 06/12/20 18:56
[2020-06-12 14:11] LABS: POC Blood Urea Nitrogen 37 mg/dL (6-20); POC CO2 22 mmol/L (22-30); POC Calcium, Ionized 1.13 mmEq/L (1.16-1.32); POC Chloride 112 mEq/L (96-108); POC Creatinine 2.3 mg/dL (0.6-1.2); POC Glucose, Random 113 mg/dL (70-105); POC Hematocrit 47 % (41-55); POC Potassium 4.3 mEql/L (3.3-5.1); POC Sodium 144 mEq/L (133-145)
[2020-06-12 14:40] LABS: Basophils # (Auto) 0.03 K/mcL (0.00-0.20); Basophils % (Auto) 0.3 % (0.0-2.0); Eosinophils # (Auto) 0.14 K/mcL (0.00-0.70); Eosinophils % (Auto) 1.3 % (0.0-7.0); Hematocrit 47.4 % (41.0-55.0); Hemoglobin 15.6 g/dL (13.5-16.5); Lymphocytes # (Auto) 2.13 K/mcL (1.50-4.80); Lymphocytes % (Auto) 20.1 % (15.0-49.0); Mean Cell Volume 93.3 fL (80.0-100.0); Mean Corpuscular HGB Conc 32.9 g/dL (31.0-36.0); Mean Platelet Volume 10.4 fL (7.4-10.4); Monocytes # (Auto) 0.71 K/mcL (0.10-0.90); Monocytes % (Auto) 6.7 % (1.0-12.0); Neutrophils % (Auto) 71.6 % (38.0-78.0); Platelet Count 163 K/mcL (140-440); RBC 5.08 M/mcL (4.50-5.90); WBC 10.6 K/mcL (4.5-11.0)
--- NOTE | 2020-06-12 14:47 | XRay Report ---
CLINICAL INFORMATION: Acute mental status change COMPARISON: 04/15/2020 TECHNIQUE: PA and Lateral views FINDINGS: The heart size, mediastinum and pulmonary vessels are unremarkable. The lungs are clear. There are no effusions. The bones and soft tissues are within normal limits. IMPRESSION: Normal chest. Interpreted and Authenticated by: Harlan Nowak 06/12/20
[2020-06-12] MEDS ORDERED: LACTATED RINGERS 1,000 ML IV ONE (14:49)
[2020-06-12 15:06] LABS: ALT/SGPT 9 U/L (<40); AST/SGOT 16 U/L (<40); Albumin 4.6 gm/dL (3.2-5.2); Albumin/Globulin Ratio 1.7 (1.0-2.3); Alkaline Phosphatase 76 U/L (39-117); Bilirubin,Total 0.3 mg/dL (0.1-1.0); Blood Urea Nitrogen 33 mg/dL (8-23); Calcium 9.6 mg/dL (8.6-10.4); Carbon Dioxide 19 mmol/L (22-30); Chloride 105 mmol/L (96-108); Creatine Kinase 66 U/L (24-195); Globulin 2.7 gm/dL (2.2-3.7); Glomerular Filtration Rate 31; Glucose 113 mg/dL (70-105)
[2020-06-12 15:17] LABS: Appearance,Urine HAZY (Clear); Bilirubin,Urine Negative (Negative); Calcium Oxalate Crystals,Urine FEW /hpf; Color,Urine YELLOW; Culture Indicated,Urine No; Glucose,Urine (UA) Negative (Negative); Ketones,Urine Negative (Negative); Leukocyte Esterase,Urine Negative /ug (Negative); Mucus,Urine FEW /hpf; Nitrate,Urine Negative (Negative); Protein,Urine 30 mg/dL (Negative); Specific Gravity,Urine 1.023 (1.000-1.035); Urine Hyaline Cast 11 /lph (0-2); Urine RBC 6 /hpf (0-1); Urine Squamous Epithelial Cell 0 /hpf (0-4); Urine WBC 2 /hpf (0-4); Urobilinogen,Urine Negative
[2020-06-12] MEDS ORDERED: LORazepam 2 MG/ML VIAL IV ONE ×2 (15:22→15:49)
[2020-06-12 15:28] LABS: Alcohol, Blood < 10.0 mg/dL
[2020-06-12 15:35] LABS: Amphetamine Screen,Urine Suspect positive; Barbiturate Screen,Urine None detected; Benzodiazepines Screen,Urine None detected; Cannabinoid Screen,Urine None detected; Cocaine Screen,Urine None detected; Opiate Screen,Urine None detected; Oxycodone, Urine Screen Suspect Positive; Phencyclidine Screen,Urine None detected
[2020-06-12] MEDS ORDERED: 0.9 % SODIUM CHLORIDE 1,000 ML IV ONE (16:38)
--- NOTE | 2020-06-12 17:14 | Nephrology Consult Note ---
HPI Data of Consult Patient: new to practice Consult date: 06/12/20 Requesting physician: Petey Barkley Primary Care Provider: Anna Yates DO Consult Narrative Patient Information: Note initiated : 06/12/20 at 5:08 pm Patient: Maurisio Briceno 70 y/o M admitted on for confusion, fever. Maurisio Briceno is a 70-year-old male with hypertension, hyperlipidemia,, chronic pain, depression, admitted on 06/12/20. He presented to ED for confusion. Workup was significant for acute kidney injury. Baseline serum creatinine: 1.0-1.2. Nephrology consultation was requested for acute kidney injury. cc:: CC: Review of Systems ROS unobtainable: due to mental status PFSH PFSH All Active Problems (Updated 06/12/20 @ 17:09 by Radha Fraser MD) Metabolic acidosis (Acute) Encounter for tobacco use cessation counseling (Acute) Hospital discharge follow-up (Acute) Altered mental status (Acute) Fever of unknown origin (Acute) History of cerebrovascular accident (Acute) Acute renal failure (ARF) (Acute) Chronic anticoagulation (Acute) H/O: stroke with residual effects (Acute) Acute CVA (cerebrovascular accident) (Acute) Unable to ambulate (Chronic) Anemia (Chronic) AAA (abdominal aortic aneurysm) (Chronic) Chronic pain (Chronic) Contracture, left hand (Acute) Wellness examination (Chronic) Sleep apnea (Acute) Marijuana abuse (Chronic) Tobacco abuse (Chronic) Joint pain (Chronic) Insomnia (Chronic) Depression (Chronic) Muscle pain (Chronic) Arthritis (Chronic) Hypertension (Chronic) Left-sided muscle weakness (Chronic) Stroke (Chronic ~2014) Medical History (Updated 06/12/20 @ 17:09 by Radha Fraser MD) AAA (abdominal aortic aneurysm) (Chronic) Anemia (Chronic) Arthritis (Chronic) Chronic pain (Chronic) r/t contractures following stroke Depression (Chronic) Encounter for tobacco use cessation counseling (Acute) H/O: stroke with residual effects (Acute) Hospital discharge follow-up (Acute) Insomnia (Chronic) Joint pain (Chronic) Left-sided muscle weakness (Chronic) Marijuana abuse (Chronic) Muscle pain (Chronic) Stroke (Chronic ~2014) April 2015 Tobacco abuse (Chronic) Unable to ambulate (Chronic) Wellness examination (Chronic) 06/06/17 Surgical History No pertinent past surgical history (Chronic) Family History Father Cancer Social History (Updated 06/12/20 @ 17:19 by Jah Bhatti DO) marital status: legally smoking status: Former smoker alcohol intake frequency: does not drink substance use type: marijuana additional history: Patient denies any surgical history Allergies: States mother father were both healthy Social history: Patient smokes 1 pack of cigarettes per day Denies alcohol use mostly wheelchair bound Lives with family MEDS/ALLERGIES Home Medications and Allergies Home Medications Medication Instructions Recorded Confirmed Type melatonin 10 mg capsule 20 mg PO HS cap 03/02/20 06/07/20 History baclofen 20 mg PO DAILY 04/16/20 06/12/20 History atorvastatin 20 mg tablet 10 mg PO QHS #90 tab 05/16/20 06/12/20 Rx clopidogrel 75 mg tablet 75 mg PO QDAY #30 tab 05/16/20 06/12/20 Rx docusate sodium 100 mg capsule 100 mg PO BID PRN #60 cap 05/16/20 06/12/20 Rx lisinopril 10 mg tablet 10 mg PO DAILY #90 tab 05/16/20 06/12/20 Rx oxybutynin chloride 5 mg tablet 5 mg PO BID #60 tab 05/16/20 06/07/20 Rx pantoprazole 40 mg tablet,delayed 40 mg PO DAILY #30 tab 05/16/20 06/12/20 Rx release pramipexole 0.75 mg tablet 0.75 mg PO TID #90 tab 05/16/20 06/12/20 Rx sertraline 100 mg tablet 150 mg PO DAILY #90 tab 05/16/20 06/12/20 Rx trazodone 100 mg tablet 200 mg PO HS PRN #30 tab 05/16/20 06/12/20 Rx oxycodone-acetaminophen 10 mg-325 1 tab PO BID PRN #60 tab 06/03/20 06/07/20 Rx mg tablet Allergies Allergy/AdvReac Type Severity Reaction Status Date / Time No Known Drug Allergies Allergy Unverified 06/07/20 13:41 Physical Examination Vital Signs Vital signs: Temp Pulse Resp BP Pulse Ox 101 F H 51 L 13 72/44 95 06/12/20 13:31 06/12/20 17:03 06/12/20 16:00 06/12/20 17:00 06/12/20 17:03 General Appearance General appearance: appears started age and cachectic EENT EENT: mucous membranes moist Neck Neck: no JVD Respiratory Respiratory: clear Cardiovascular Cardiology: no edema and regular rate Gastrointestinal Gastrointestinal: no tenderness Integumentary Integumentary: no rash and warm and dry Neurologic Neurologic: confused and disoriented Results Lab Results Result Diagrams: 06/12/20 13:57 06/12/20 13:57 Lab results: Most recent lab results Calcium 9.6 mg/dL (8.6-10.4) 06/12/20 13:57 Magnesium 2.3 mg/dL (1.6-2.5) 06/12/20 13:57 A/P Assessment and plan (1) Acute renal failure (ARF): Assessment and plan: Maurisio Briceno is a 70-year-old male with hypertension, hyperlipidemia,, chronic pain, depression, admitted on 06/12/20. He presented to ED for confusion. Workup was significant for acute kidney injury. Baseline serum creatinine: 1.0-1.2. Nephrology consultation was requested for acute kidney injury. Acute kidney injury with metabolic acidosis, present on arrival. There is no recent history of IV contrast administration or NSAID use. He had previous episodes of serum creatinine elevation to 1.6 in 04/2017, 01/10 and 04/12. He received 2.5 L IVF in ED. Work up: Urinalysis on 06/12/20: Yellow, hazy, pH 5.0, SG 1.023, protein 30, blood 0.2, leukocyte esterase negative, urine WBC 2. Abdominal US on 09/03/18: Borderline aneurysmal enlargement of the infrarenal abdominal aorta which is stable since comparison ultrasound over one year ago. Consider follow-up in one to two years No recent renal imaging. Progress: Serum creatinine increased from a baseline of 1.1 (04/17/20) to 2.1 (06/12/20). Metabolic acidosis. Recommendations/Plan: Altered mental status unlikely to be associated with uremia. No urgent acute hemodialysis need. Work up with renal US. Avoid NSAIDs, nephrotoxic medications and IV contrast. Monitor BMP and urine output. Status: Acute Qualifiers: Acute renal failure type: unspecified Qualified Code(s): N17.9 - Acute kidney failure, unspecified (2) Metabolic acidosis: Status: Acute Time Spent With Patient Time: Total time spent is greater than 50% in coordination of care (as documented) at patient's floor/unit and/or counseling patient:
--- NOTE | 2020-06-12 17:25 | Internal Med History&Physical ---
HPI History of Present Illness Patient information: Note initiated : 06/12/20 at 5:15 pm Service Date, if different from initiated Date: [] Patient: Maurisio Briceno a 70 y/o M admitted on for confusion, fever. Chief Complaint: [] History of present illness: Mr. Briceno is a 70 year old M Whose family called EMS because he seemed more confused and he was complaining of difficulty urinating. History obtained from the chart as patient is currently sedated after he became quite agitated in the ED pulling at lines and crawling out of bed. In the ED is evaluated found to have acute kidney injury. Urinalysis with hyaline cast but did not lead look infected. Bladder scan for only [address] brain showed no acute infarct. Unable to gather review of systems given sedation. PFSH PFSH All Active Problems (Updated 06/12/20 @ 17:09 by Radha Fraser MD) Metabolic acidosis (Acute) Encounter for tobacco use cessation counseling (Acute) Hospital discharge follow-up (Acute) Altered mental status (Acute) Fever of unknown origin (Acute) History of cerebrovascular accident (Acute) Acute renal failure (ARF) (Acute) Chronic anticoagulation (Acute) H/O: stroke with residual effects (Acute) Acute CVA (cerebrovascular accident) (Acute) Unable to ambulate (Chronic) Anemia (Chronic) AAA (abdominal aortic aneurysm) (Chronic) Chronic pain (Chronic) Contracture, left hand (Acute) Wellness examination (Chronic) Sleep apnea (Acute) Marijuana abuse (Chronic) Tobacco abuse (Chronic) Joint pain (Chronic) Insomnia (Chronic) Depression (Chronic) Muscle pain (Chronic) Arthritis (Chronic) Hypertension (Chronic) Left-sided muscle weakness (Chronic) Stroke (Chronic ~2014) Medical History (Updated 06/12/20 @ 17:09 by Radha Fraser MD) AAA (abdominal aortic aneurysm) (Chronic) Anemia (Chronic) Arthritis (Chronic) Chronic pain (Chronic) r/t contractures following stroke Depression (Chronic) Encounter for tobacco use cessation counseling (Acute) H/O: stroke with residual effects (Acute) Hospital discharge follow-up (Acute) Insomnia (Chronic) Joint pain (Chronic) Left-sided muscle weakness (Chronic) Marijuana abuse (Chronic) Muscle pain (Chronic) Stroke (Chronic ~2014) April 2015 Tobacco abuse (Chronic) Unable to ambulate (Chronic) Wellness examination (Chronic) 06/06/17 Surgical History No pertinent past surgical history (Chronic) Family History Father Cancer Social History (Updated 06/12/20 @ 17:19 by Jah Bhatti DO) marital status: legally smoking status: Former smoker alcohol intake frequency: does not drink substance use type: marijuana additional history: Patient denies any surgical history Allergies: States mother father were both healthy Social history: Patient smokes 1 pack of cigarettes per day Denies alcohol use mostly wheelchair bound Lives with family MEDS/ALLERGIES Home Medications and Allergies Home Medications Medication Instructions Recorded Confirmed Type melatonin 10 mg capsule 20 mg PO HS cap 03/02/20 06/07/20 History baclofen 20 mg PO DAILY 04/16/20 06/12/20 History atorvastatin 20 mg tablet 10 mg PO QHS #90 tab 05/16/20 06/12/20 Rx clopidogrel 75 mg tablet 75 mg PO QDAY #30 tab 05/16/20 06/12/20 Rx docusate sodium 100 mg capsule 100 mg PO BID PRN #60 cap 05/16/20 06/12/20 Rx lisinopril 10 mg tablet 10 mg PO DAILY #90 tab 05/16/20 06/12/20 Rx oxybutynin chloride 5 mg tablet 5 mg PO BID #60 tab 05/16/20 06/07/20 Rx pantoprazole 40 mg tablet,delayed 40 mg PO DAILY #30 tab 05/16/20 06/12/20 Rx release pramipexole 0.75 mg tablet 0.75 mg PO TID #90 tab 05/16/20 06/12/20 Rx sertraline 100 mg tablet 150 mg PO DAILY #90 tab 05/16/20 06/12/20 Rx trazodone 100 mg tablet 200 mg PO HS PRN #30 tab 05/16/20 06/12/20 Rx oxycodone-acetaminophen 10 mg-325 1 tab PO BID PRN #60 tab 06/03/20 06/07/20 Rx mg tablet Allergies Allergy/AdvReac Type Severity Reaction Status Date / Time No Known Drug Allergies Allergy Unverified 06/07/20 13:41 EXAM Constitutional Vitals: Temp Pulse Resp BP Pulse Ox 101 F H 51 L 13 72/44 95 06/12/20 13:31 06/12/20 17:03 06/12/20 16:00 06/12/20 17:00 06/12/20 17:03 Exam: General: sedated, No acute Distress Eyes/N/T: PERRL, dry MM Head/Neck: neck supple, normocephalic atraumatic CV: RRR, No murmurs, normal s1/s2 Pulm: Clear b/l, no wheezing/rhonchi/rales Abd: soft, nontender, +BS x4 Ext: no clubbing/cyanosis/edema. RUE contracture Neuro: Alert, chronic left side hemiparesis Skin: warm/dry DATA Data Completed and Pending Labs: Labs from last 24 hours 06/12/20 06/12/20 06/12/20 15:14 14:30 14:20 WBC RBC Hgb Hct POC Hct MCV MCH MCHC RDW Plt Count MPV Neut % (Auto) Lymph % (Auto) [place] % (Auto) Eos % (Auto) Baso % (Auto) Lymph # (Auto) [place] # (Auto) Eos # (Auto) Baso # (Auto) Absolute Neutrophils VBG Lactic Acid POC Sodium Sodium POC Potassium Potassium POC Chloride Chloride Carbon Dioxide POC Total CO2 Anion Gap POC BUN BUN Creatinine POC Creatinine GFR Calculation Glucose POC Glucose Calcium POC WB Ioniz Calcium Magnesium Total Bilirubin AST ALT Alkaline Phosphatase Ammonia 43 Total Creatine Kinase Total Protein Albumin Globulin Albumin/Globulin Ratio Urine Color Urine Appearance Urine pH Ur Specific [place] Urine Protein Urine Glucose (UA) Urine Ketones Urine Occult Blood Urine Nitrate Urine Bilirubin Urine Urobilinogen Ur Leukocyte Esterase Urine RBC Urine WBC Ur Squamous Epith Cells Calcium Oxalate Crystal Urine Bacteria Hyaline Casts Urine Mucus Ur Culture Indicated? Urine Opiates Screen None detected Ur Opiates Confirm Pending Ur Oxycodone Screen Suspect positive A Urine Methadone Screen None detected Ur Methadone Confirm Pending Ur Barbiturates Screen None detected Ur Barbiturate Confirm Pending Ur Phencyclidine Scrn None detected Urine PCP Confirm Pending Ur Amphetamines Screen Suspect positive A U Amphetamines Confirm Pending U Benzodiazepines Scrn None detected U Benzodiazepine Confm Pending Urine Cocaine Screen None detected Urine Cocaine Confirm Pending U Cannabinoids Confirm Pending U Marijuana (THC) Screen None detected Ethyl Alcohol 0.010 H 06/12/20 06/12/20 06/12/20 14:15 13:57 13:57 WBC RBC Hgb Hct POC Hct MCV MCH MCHC RDW Plt Count MPV Neut % (Auto) Lymph % (Auto) [place] % (Auto) Eos % (Auto) Baso % (Auto) Lymph # (Auto) [place] # (Auto) Eos # (Auto) Baso # (Auto) Absolute Neutrophils VBG Lactic Acid POC Sodium Sodium POC Potassium Potassium POC Chloride Chloride Carbon Dioxide POC Total CO2 Anion Gap POC BUN BUN Creatinine POC Creatinine GFR Calculation Glucose POC Glucose Calcium POC WB Ioniz Calcium Magnesium 2.3 Total Bilirubin AST ALT Alkaline Phosphatase Ammonia Total Creatine Kinase 66 Total Protein Albumin Globulin Albumin/Globulin Ratio Urine Color Yellow Urine Appearance Hazy A Urine pH 5.0 Ur Specific [place] 1.023 Urine Protein 30 A Urine Glucose (UA) Negative Urine Ketones Negative Urine Occult Blood 0.20 Urine Nitrate Negative Urine Bilirubin Negative Urine Urobilinogen Negative Ur Leukocyte Esterase Negative Urine RBC 6 H Urine WBC 2 Ur Squamous Epith Cells 0 Calcium Oxalate Crystal Few A Urine Bacteria None Hyaline Casts 11 H Urine Mucus Few A Ur Culture Indicated? No Urine Opiates Screen Ur Opiates Confirm Ur Oxycodone Screen Urine Methadone Screen Ur Methadone Confirm Ur Barbiturates Screen Ur Barbiturate Confirm Ur Phencyclidine Scrn Urine PCP Confirm Ur Amphetamines Screen U Amphetamines Confirm U Benzodiazepines Scrn U Benzodiazepine Confm Urine Cocaine Screen Urine Cocaine Confirm U Cannabinoids Confirm U Marijuana (THC) Screen Ethyl Alcohol 06/12/20 06/12/20 06/12/20 13:57 13:57 13:57 WBC 10.6 RBC 5.08 Hgb 15.6 Hct 47.4 POC Hct 47 MCV 93.3 MCH 30.7 MCHC 32.9 RDW 13.0 Plt Count 163 MPV 10.4 Neut % (Auto) 71.6 Lymph % (Auto) 20.1 [place] % (Auto) 6.7 Eos % (Auto) 1.3 Baso % (Auto) 0.3 Lymph # (Auto) 2.13 [place] # (Auto) 0.71 Eos # (Auto) 0.14 Baso # (Auto) 0.03 Absolute Neutrophils 7.58 VBG Lactic Acid 2.0 POC Sodium 144 Sodium 143 POC Potassium 4.3 Potassium 4.4 POC Chloride 112 H Chloride 105 Carbon Dioxide 19 L POC Total CO2 22 Anion Gap 19.0 H POC BUN 37 H BUN 33 H Creatinine 2.1 H POC Creatinine 2.3 H GFR Calculation 31 Glucose 113 H POC Glucose 113 H Calcium 9.6 POC WB Ioniz Calcium 1.13 L Magnesium Total Bilirubin 0.3 AST 16 ALT 9 Alkaline Phosphatase 76 Ammonia Total Creatine Kinase Total Protein 7.3 Albumin 4.6 Globulin 2.7 Albumin/Globulin Ratio 1.7 Urine Color Urine Appearance Urine pH Ur Specific [place] Urine Protein Urine Glucose (UA) Urine Ketones Urine Occult Blood Urine Nitrate Urine Bilirubin Urine Urobilinogen Ur Leukocyte Esterase Urine RBC Urine WBC Ur Squamous Epith Cells Calcium Oxalate Crystal Urine Bacteria Hyaline Casts Urine Mucus Ur Culture Indicated? Urine Opiates Screen Ur Opiates Confirm Ur Oxycodone Screen Urine Methadone Screen Ur Methadone Confirm Ur Barbiturates Screen Ur Barbiturate Confirm Ur Phencyclidine Scrn Urine PCP Confirm Ur Amphetamines Screen U Amphetamines Confirm U Benzodiazepines Scrn U Benzodiazepine Confm Urine Cocaine Screen Urine Cocaine Confirm U Cannabinoids Confirm U Marijuana (THC) Screen Ethyl Alcohol A/P Narrative A/P Narrative: Assessment: *MARKUS on CKD II: *Encephalopathy superimposed on underlying dementia: 2/2 above vs progression -CT brain no acute findings *Vascular Dementia: *h/o CVA with residual left-side weakness -on plavix *Poor functional status: pt is wheelchair bound *Depression: *HTN: home lisinopril 10mg *GERD: *Tobacco abuse: *CRISTO on cpap: *Chr pain: P: -IVF -Nephro following, renal u/s pending -low stimulation environment - -hold ACEI for markus -cont Plavix/statin -home cpap -pt/ot -CM for placement needs -Smoking cessation counseling -ppx: lovenox 30/PPI Time Spent With Patient Time: Total time spent is greater than 50% in coordination of care (as documented) at patient's floor/unit and/or counseling patient:
[2020-06-12] MEDS ORDERED: SENNOSIDES 1 TABLET PO PRN (18:52)
[2020-06-12] MEDS ORDERED: POTASSIUM CHLORIDE 40 MEQ in DEXTROSE 5% IN WATER 500 ML IV PRN (18:52)
[2020-06-12] MEDS ORDERED: ONDANSETRON 4 MG/2 ML VIAL IV PRN (18:52)
[2020-06-12] MEDS ORDERED: IPRATROPIUM/ALBUTEROL 3 ML AMPUL.NEB NEB PRN (18:52)
[2020-06-12] MEDS ORDERED: ACETAMINOPHEN 325 MG TABLET PO PRN (18:52)
[2020-06-12] MEDS ORDERED: DOCUSATE SODIUM 100 MG CAPSULE PO PRN (18:52)
[2020-06-12] MEDS ORDERED: OLANZapine 5 MG TABLET PO PRN ×2 (18:52→20:29)
[2020-06-12] MEDS ORDERED: POTASSIUM CHLORIDE 20 MEQ TABLET PO PRN (18:52)
[2020-06-12] MEDS ORDERED: POLYETHYLENE GLYCOL 3350 17 GM PACKET PO PRN (18:52)
[2020-06-12] MEDS ORDERED: MAGNESIUM SULFATE 2 GM/50 ML BAG IV PRN (18:52)
--- NOTE | 2020-06-12 19:01 | Cat Scan Report ---
CLINICAL INFORMATION: COMPARISON: None. TECHNIQUE: 2.5 mm helical slices were obtained in the skull base to vertex. Following reconstruction, axial reformatted images were reviewed at bone and parenchymal windows. The exam was performed using radiation dose optimization techniques including, but not limited to, automated exposure control, adjustment of the mA and/or kV according to patient size and use of iterative reconstruction technique. FINDINGS: The ventricles, sulci, fissures, and cisterns are moderately enlarged patible with moderate atrophy - more than is typically seen in this age group. There is no subdural hemorrhage or other extra-axial fluid collection. Large remote cortical-based infarct the right MCA territory involving the posterior right frontal, anterior parietal and temporal lobes. Wallerian degeneration is seen in the posterior limb of the right internal capsule and the associated cortical spinal tracts in the brain stem. Since the comparison CT two months prior, there has been subacute extension posteriorly to involve more anterior parietal lobe. Moderate old cortical based infarct in the left frontal lobe is again noted. There is no intracerebral hemorrhage, mass effect, edema or other acute findings. Bone windows show no osseous abnormality.. IMPRESSION: Large remote cortical-based infarct in the right MCA territory. Since the comparison CT two months, there has been subacute extension posteriorly to involve more of the anterior right parietal lobe. Wallerian degeneration is noted in the right internal capsule and the cortical spinal tracts of the brain stem served by this vascular territory Moderate remote cortical infarct left frontal lobe again noted. Moderate atrophy No intracerebral hemorrhage, mass effect or edema or other acute finding . Interpreted and Authenticated by: Harlan Nowak 06/12/20
[2020-06-12] MEDS: HYDROcodone/APAP 5/325MG TABLET PO PRN (19:24)
[2020-06-12] MEDS: 0.9 % SODIUM CHLORIDE 1,000 ML IV SCH (19:25)
[2020-06-12] MEDS: MELATONIN 3 MG TABLET PO SCH (19:27)
[2020-06-12] MEDS: ATORVASTATIN 10 MG TABLET PO SCH (19:30)
[2020-06-12] MEDS ORDERED: hydrOXYzine 25 MG TABLET PO ONE (20:00)
[2020-06-12] MEDS: traZODone HCL 100 MG TABLET PO PRN (21:14)
[2020-06-12] MEDS: PRAMIPEXOLE 0.25 MG TABLET PO SCH (21:14)
[2020-06-12] MEDS: 0.9 % SODIUM CHLORIDE 10 ML SYRINGE IV SCH (21:38)
[2020-06-12] MEDS ORDERED: hydrOXYzine 50 MG/ML VIAL IM ONE (22:35)
[2020-06-13] MEDS: 0.9 % SODIUM CHLORIDE 10 ML SYRINGE IV SCH ×3 (05:48→22:36)
[2020-06-13] MEDS ORDERED: OLANZapine 5 MG TABLET PO PRN (07:17)
--- NOTE | 2020-06-13 07:17 | Internal Med Progress Note ---
SUBJECTIVE Subjective Patient information: Note initiated : 06/13/20 at 7:14 am Service Date, if different from initiated Date: [] Patient: Maurisio Briceno a 70 y/o M admitted on 06/12/20 for confusion, fever. Chief Complaint: [] Interval history: History of present illness: Mr. Briceno is a 70 year old M Whose family called EMS because he seemed more confused and he was complaining of difficulty urinating. History obtained from the chart as patient is currently sedated after he became quite agitated in the ED pulling at lines and crawling out of bed. In the ED is evaluated found to have acute kidney injury. Urinalysis with hyaline cast but did not lead look infected. Bladder scan for only [address] brain showed no acute infarct. Unable to gather review of systems given sedation. 06/13 Patient sleeping. And appropriate behaviors last night. Afebrile CBC unremarkable. Awaiting chemistry panel. Constitutional Vitals: Vital Signs Temp Pulse Resp BP Pulse Ox 98.0 F 107 H 18 167/74 93 06/13/20 03:00 06/12/20 19:41 06/13/20 03:00 06/12/20 23:55 06/13/20 03:00 Period Temp Pulse Resp BP Sys/Tsang Pulse Ox Last 24 Hr 97.7 F-101 F 51-110 0-26 66-174/41-128 89-98 Intake and Output 06/12/20 06/13/20 06/13/20 21:59 05:59 13:59 Intake Total 3000 30 Output Total 5 Balance 3000 25 Weight 58.559 kg Intake & Output: Intake & Output 06/12/20 06/13/20 06/13/20 21:59 05:59 13:59 Intake Total 3000 30 Output Total 5 Balance 3000 25 Weight 58.559 kg Intake: IV 3000 Sodium Chloride 0.9% 1,000 ml @ 2000 Wide Open IV BOLUS ONE Rx#: [id number] Lactated Ringers 1,000 ml @ 1000 Wide Open IV BOLUS ONE Rx#: [id number] Oral 30 Output: # of times incontinent of urine 5 Other: Urine Appearance Straight Clear Urine Color Dark Yellow Dark Yellow Straight Light Genna Urine Odor Strong Strong Exam: General: Sleeping, No acute Distress Eyes/N/T: Head/Neck: neck supple, CV: RRR, No murmurs, Pulm: Clear b/l, no wheezing/rhonchi/rales Abd: soft, nontender, +BS x4 Ext: no clubbing/cyanosis/edema. RUE contracture Neuro: Sleeping, moves all extremities spontaneously, chronic left side hemiparesis Skin: warm/dry OBJ DATA Labs CBC & Chem 7: 06/13/20 06:45 06/12/20 13:57 Labs: Abnormal Lab Results 06/12/20 06/12/20 06/12/20 15:14 14:30 14:15 POC Chloride Carbon Dioxide Anion Gap POC BUN BUN Creatinine POC Creatinine Glucose POC Glucose POC WB Ioniz Calcium Urine Appearance Hazy A Urine Protein 30 A Urine RBC 6 H Calcium Oxalate Crystal Few A Hyaline Casts 11 H Urine Mucus Few A Ur Oxycodone Screen Suspect positive A Ur Amphetamines Screen Suspect positive A Ethyl Alcohol 0.010 H 06/12/20 13:57 POC Chloride 112 H Carbon Dioxide 19 L Anion Gap 19.0 H POC BUN 37 H BUN 33 H Creatinine 2.1 H POC Creatinine 2.3 H Glucose 113 H POC Glucose 113 H POC WB Ioniz Calcium 1.13 L Urine Appearance Urine Protein Urine RBC Calcium Oxalate Crystal Hyaline Casts Urine Mucus Ur Oxycodone Screen Ur Amphetamines Screen Ethyl Alcohol Meds: Medications Acetaminophen (Tylenol) 650 mg PO Q6HP PRN PRN Reason: PAIN/FEVER > 101 Hydrocodone Bitart/Acetaminophen (Una 5/325mg) 1 tab PO Q4HP PRN PRN Reason: PAIN LEVEL 3-6 Last Admin: 06/12/20 19:24 Dose: 1 tab Documented by: Albuterol/Ipratropium (Duoneb) 3 ml NEB Q4HP PRN PRN Reason: Shortness Of Breath Atorvastatin Calcium (Lipitor) 10 mg PO HS [facility] Last Admin: 06/12/20 19:30 Dose: 10 mg Documented by: Baclofen (Lioresal) 20 mg PO DAILY JARRED Clopidogrel Bisulfate (Plavix) 75 mg PO QDAY JARRED Docusate Sodium (Colace) 100 mg PO BID PRN PRN Reason: Constipation Enoxaparin Sodium (Lovenox) 30 mg SQ DAILY [facility] Potassium Chloride 40 meq/ (Dextrose) 520 mls @ 130 mls/hr IV UD PRN PRN Reason: Potassium < 3 Magnesium Sulfate (Magnesium Sulfate) 2 gm in 50 mls @ 50 mls/hr IV UD PRN PRN Reason: Magnesium </= 1.6 Sodium Chloride (Sodium Chloride 0.9%) 1,000 mls @ 75 mls/hr IV .[id number] [facility] Stop: 06/13/20 21:31 Last Admin: 06/12/20 19:25 Dose: 75 mls/hr Documented by: Melatonin (Melatonin 3mg Tablet) 3 mg PO QHS [facility] Last Admin: 06/12/20 19:27 Dose: 3 mg Documented by: Olanzapine (Zyprexa) 5 mg PO Q6HP PRN PRN Reason: Agitation Last Admin: 06/12/20 22:51 Dose: 5 mg Documented by: Ondansetron HCl (Zofran) 4 mg IV Q4HP PRN PRN Reason: Nausea And Vomiting Pantoprazole Sodium (Protonix) 40 mg PO QAMAC [facility] Polyethylene Glycol (Miralax) 17 gm PO DAILYP PRN PRN Reason: Constipation Potassium Chloride (Kdur) 40 meq PO UD PRN PRN Reason: Potassium < 3 Pramipexole Dihydrochloride (Mirapex) 0.75 mg PO TID [facility] Last Admin: 06/12/20 21:14 Dose: 0.75 mg Documented by: Senna (Senokot) 2 tab PO DAILYP PRN PRN Reason: Constipation Sertraline HCl (Zoloft) 150 mg PO DAILY [facility] Sodium Chloride (Saline Flush) 10 ml IV Q8 [facility] Last Admin: 06/13/20 05:48 Dose: Not Given Documented by: Trazodone HCl (Desyrel) 200 mg PO HS PRN PRN Reason: Sleep Last Admin: 06/12/20 21:14 Dose: 200 mg Documented by: A/P Narrative A/P Narrative: Assessment: *MARKUS on CKD II: *Encephalopathy superimposed on underlying dementia: 2/2 above vs progression -CT brain no acute findings *Vascular Dementia: *h/o CVA with residual left-side weakness -on plavix *Poor functional status: pt is wheelchair bound and has RUE contracture *Depression: *HTN: home lisinopril 10mg *GERD: *Tobacco abuse: *CRISTO on cpap: *Chr pain: P: -IVF -Nephro following, renal u/s pending -low stimulation environment -hold ACEI for markus -cont Plavix/statin -home cpap -pt/ot -CM for placement needs -Smoking cessation counseling -ppx: lovenox 30/PPI Time Spent With Patient Time: Total time spent is greater than 50% in coordination of care (as documented) at patient's floor/unit and/or counseling patient: QUALITY Stroke Symptom Onset Unknown: No VTE Deep Vein Thrombosis/Pulmonary Embolism Present on Admission: No
[2020-06-13 07:39] LABS: Basophils # (Auto) 0.04 K/mcL (0.00-0.20); Basophils % (Auto) 0.5 % (0.0-2.0); Eosinophils # (Auto) 0.17 K/mcL (0.00-0.70); Eosinophils % (Auto) 1.9 % (0.0-7.0); Hematocrit 40.3 % (41.0-55.0); Hemoglobin 13.6 g/dL (13.5-16.5); Lymphocytes # (Auto) 1.89 K/mcL (1.50-4.80); Lymphocytes % (Auto) 21.3 % (15.0-49.0); Mean Cell Volume 91.4 fL (80.0-100.0); Mean Corpuscular HGB Conc 33.7 g/dL (31.0-36.0); Mean Platelet Volume 10.7 fL (7.4-10.4); Monocytes # (Auto) 0.61 K/mcL (0.10-0.90); Monocytes % (Auto) 6.9 % (1.0-12.0); Neutrophils % (Auto) 69.4 % (38.0-78.0); Platelet Count 146 K/mcL (140-440); RBC 4.41 M/mcL (4.50-5.90); WBC 8.9 K/mcL (4.5-11.0)
[2020-06-13 08:06] LABS: ALT/SGPT 8 U/L (<40); AST/SGOT 17 U/L (<40); Albumin 3.6 gm/dL (3.2-5.2); Albumin/Globulin Ratio 1.6 (1.0-2.3); Alkaline Phosphatase 61 U/L (39-117); Bilirubin,Direct < 0.2 mg/dL (<0.3); Bilirubin,Total 0.3 mg/dL (0.1-1.0); Blood Urea Nitrogen 18 mg/dL (8-23); Calcium 8.4 mg/dL (8.6-10.4); Carbon Dioxide 22 mmol/L (22-30); Chloride 110 mmol/L (96-108); Globulin 2.2 gm/dL (2.2-3.7); Glomerular Filtration Rate 68; Glucose 87 mg/dL (70-105); Lactate Dehydrogenase 160 U/L (135-225); Phosphorous 1.8 mg/dL (2.5-4.5); Triglycerides 76 mg/dL (<150); Uric Acid 5.1 mg/dL (2.5-8.0)
--- NOTE | 2020-06-13 08:18 | Nephrology Progress Note ---
SUBJECTIVE Subjective Patient information: Note initiated : 06/13/20 at 8:17 am Patient: Maurisio Briceno 70 y/o M admitted on 06/12/20 for confusion, fever. Chief Complaint: Confused. Pertinent ROS: Still confused. Urinary incontinence. No edema. Constitutional Vitals: Vital Signs Temp Pulse Resp BP Pulse Ox 98.8 F 57 L 20 100/53 96 06/13/20 07:00 06/13/20 07:00 06/13/20 07:00 06/13/20 07:00 06/13/20 07:00 Period Temp Pulse Resp BP Sys/Tsang Pulse Ox Last 24 Hr 97.7 F-101 F 51-110 0-26 66-174/41-128 89-98 Intake and Output 06/12/20 06/13/20 06/13/20 21:59 05:59 13:59 Intake Total 3000 30 Output Total 5 Balance 3000 25 Weight 129 lb 1.6 oz Intake & Output: Intake & Output 06/12/20 06/13/20 06/13/20 21:59 05:59 13:59 Intake Total 3000 30 Output Total 5 Balance 3000 25 Weight 129 lb 1.6 oz Intake: IV 3000 Sodium Chloride 0.9% 1,000 ml @ 2000 Wide Open IV BOLUS ONE Rx#: [id number] Lactated Ringers 1,000 ml @ 1000 Wide Open IV BOLUS ONE Rx#: [id number] Oral 30 Output: # of times incontinent of urine 5 Other: Urine Appearance Straight Clear Urine Color Dark Yellow Dark Yellow Straight Light Genna Urine Odor Strong Strong General appearance: no acute distress and thin Head Head exam: Present atraumatic and normal inspection Respiratory Additional comments: No labored respiration Cardiovascular Cardiovascular exam: Present normal rate and rhythm GI/Abdominal GI/Abdominal exam: Present soft Extremities Exam Additional comments: No edema Neurological Exam Neurological exam: Present alert and altered Skin Skin exam: Present pallor A/P Assessment and plan (1) Acute renal failure (ARF): Assessment and plan: Maurisio Briceno is a 70-year-old male with hypertension, hyperlipidemia, chronic pain, depression, admitted on 06/12/20. He presented to ED for confusion. Workup was significant for acute kidney injury. Baseline serum creatinine: 1.0-1.2. Nephrology consultation was requested for acute kidney injury. Acute kidney injury with metabolic acidosis, present on arrival, likely associated with decreased oral intake, resolved. Work up: Urinalysis on 06/12/20: Yellow, hazy, pH 5.0, SG 1.023, protein 30, blood 0.2, leukocyte esterase negative, urine WBC 2. Abdominal US on 09/03/18: Borderline aneurysmal enlargement of the infrarenal abdominal aorta which is stable since comparison ultrasound over one year ago. Consider follow-up in one to two years No recent renal imaging. Progress: Serum creatinine decreased from 2.1 to 1.2 in the past 16 hours. Baseline serum creatinine: 1.0-1.2. Urine output: Not reported. Metabolic acidosis, resolved. Recommendations/Plan: Nephrology will sign off. Status: Acute Qualifiers: Acute renal failure type: unspecified Qualified Code(s): N17.9 - Acute kidney failure, unspecified (2) Metabolic acidosis: Status: Acute Time Spent With Patient Time: Total time spent is greater than 50% in coordination of care (as documented) at patient's floor/unit and/or counseling patient:
[2020-06-13] MEDS: PANTOPRAZOLE 40 MG TABLET PO SCH (08:27)
[2020-06-13] MEDS: 0.9 % SODIUM CHLORIDE 1,000 ML IV SCH (08:28)
[2020-06-13] MEDS ORDERED: POTASSIUM PHOSPHATE 20 MEQ in DEXTROSE 5% IN WATER 250 ML IV ONE (08:28)
--- NOTE | 2020-06-13 08:55 | Ultrasound Report ---
CLINICAL INFORMATION: Acute kidney injury COMPARISON: None. FINDINGS: Both kidneys are normal in size, position, configuration and echotexture: The right is 10.4 x 5.6 cm and the left 11.3 x 5 cm. There is a 1.5 cm simple cyst in the inferior pole the right kidney. No stone, hydronephrosis or solid lesion. Arterial blood flow is grossly normal both kidneys on color Doppler. Urinary bladder volume is 334 cc. Patient refused to void. Prostate volume is mildly elevated - 38 cc IMPRESSION: Both kidneys are unremarkable with exception of a 1.5 cm simple cyst inferior pole right kidney. Mild prostate enlargement Interpreted and Authenticated by: Harlan Nowak 06/13/20
[2020-06-13] MEDS: DEXTROSE 5%-1/2NS W/10MEQ KCL 1,000 ML IV SCH (09:15)
[2020-06-13] MEDS: ENOXAPARIN 30 MG/0.3 ML SYRINGE SQ SCH (09:50)
[2020-06-13] MEDS: BACLOFEN 10 MG TABLET PO SCH (09:50)
[2020-06-13] MEDS: PRAMIPEXOLE 0.25 MG TABLET PO SCH ×3 (09:51→21:44)
[2020-06-13] MEDS: SERTRALINE 50 MG TABLET PO SCH (09:51)
[2020-06-13] MEDS: CLOPIDOGREL 75 MG TABLET PO SCH (09:51)
[2020-06-13] MEDS: HYDROcodone/APAP 5/325MG TABLET PO PRN ×2 (09:58→23:18)
[2020-06-13] MEDS: traZODone HCL 100 MG TABLET PO PRN (21:44)
[2020-06-13] MEDS: ATORVASTATIN 10 MG TABLET PO SCH (21:44)
[2020-06-13] MEDS: MELATONIN 3 MG TABLET PO SCH (21:45)
[2020-06-14] MEDS: DEXTROSE 5%-1/2NS W/10MEQ KCL 1,000 ML IV SCH ×2 (00:39→01:50)
[2020-06-14] MEDS: HYDROcodone/APAP 5/325MG TABLET PO PRN (03:19)
[2020-06-14] MEDS: 0.9 % SODIUM CHLORIDE 10 ML SYRINGE IV SCH ×2 (04:18→12:09)
[2020-06-14 07:05] LABS: Blood Urea Nitrogen 16 mg/dL (8-23); Calcium 8.7 mg/dL (8.6-10.4); Carbon Dioxide 23 mmol/L (22-30); Chloride 106 mmol/L (96-108); Glomerular Filtration Rate 87; Glucose 114 mg/dL (70-105)
[2020-06-14] MEDS ORDERED: LOPERAMIDE 2 MG CAPSULE PO PRN (07:14)
--- NOTE | 2020-06-14 07:16 | Internal Med Progress Note ---
SUBJECTIVE Subjective Patient information: Note initiated : 06/14/20 at 7:13 am Service Date, if different from initiated Date: [] Patient: Maurisio Briceno a 70 y/o M admitted on 06/12/20 for confusion, fever. Chief Complaint: [] Interval history: History of present illness: Mr. Briceno is a 70 year old M Whose family called EMS because he seemed more confused and he was complaining of difficulty urinating. History obtained from the chart as patient is currently sedated after he became quite agitated in the ED pulling at lines and crawling out of bed. In the ED is evaluated found to have acute kidney injury. Urinalysis with hyaline cast but did not lead look infected. Bladder scan for only [address] brain showed no acute infarct. Unable to gather review of systems given sedation. 06/13 Patient sleeping. And appropriate behaviors last night. Afebrile CBC unremarkable. Awaiting chemistry panel. Patient having multiple loose stools. Was unable to gather information regarding this on admit d/t AMS. will check c. diff. 06/14 Constitutional Vitals: Vital Signs Temp Pulse Resp BP Pulse Ox 98.5 F 74 22 131/74 94 06/14/20 02:44 06/14/20 02:44 06/14/20 02:44 06/14/20 02:44 06/14/20 02:44 Period Temp Pulse Resp BP Sys/Tsang Pulse Ox Last 24 Hr 97.6 F-99.1 F 65-79 20-24 130-165/70-90 94-97 Intake and Output 06/13/20 06/14/20 06/14/20 21:59 05:59 13:59 Intake Total 660 1554.5455 Output Total 350 300 Balance 310 1254.5455 Weight 59.103 kg 59.103 kg Intake & Output: Intake & Output 06/13/20 06/14/20 06/14/20 21:59 05:59 13:59 Intake Total 660 1554.5455 Output Total 350 300 Balance 310 1254.5455 Weight 59.103 kg 59.103 kg Intake: Nourishment/Supplement quantity 240 (ml) IV 1254.5455 Dextrose 5%-1/2Ns W/10Meq KCl 1 1000 ,000 ml @ 75 mls/hr IV .[id number] [facility] Rx#:[id number] Potassium Phosphate 20 Meq In 254.5455 Dextrose 5% in Water 250 ml @ 127.273 mls/hr IV ONCE ONE Rx#: [id number] Oral 420 300 Output: Void Amount 350 300 Other: Meal Dinner Percent of Meal Consumed 100% Feeding Ability Assist with Tray Set Up Nourishment/Supplement name Ensure Urine Appearance Clear Clear Urine Color Bright Yellow Pale Stool Size Moderate Stool Color Green Stool Consistency Liquid Loose # Bowel Movements 1 Exam: General: Sleeping, No acute Distress Eyes/N/T: Head/Neck: neck supple, CV: RRR, No murmurs, Pulm: Clear b/l, no wheezing/rhonchi/rales Abd: soft, nontender, +BS x4 Ext: no clubbing/cyanosis/edema. RUE contracture Neuro: Sleeping, moves all extremities spontaneously, chronic left side hemiparesis Skin: warm/dry OBJ DATA Labs CBC & Chem 7: 06/13/20 06:45 06/14/20 05:21 Labs: Abnormal Lab Results 06/14/20 06/13/20 06/13/20 05:21 06:45 06:45 RBC 4.41 L Hct 40.3 L MPV 10.7 H Sodium 146 H POC Chloride Chloride 110 H Carbon Dioxide Anion Gap POC BUN BUN Creatinine POC Creatinine Glucose 114 H POC Glucose Calcium 8.4 L POC WB Ioniz Calcium Phosphorus 1.8 L Total Protein 5.8 L Urine Appearance Urine Protein Urine RBC Calcium Oxalate Crystal Hyaline Casts Urine Mucus Ur Oxycodone Screen Ur Amphetamines Screen Ethyl Alcohol 06/12/20 06/12/20 06/12/20 15:14 14:30 14:15 RBC Hct MPV Sodium POC Chloride Chloride Carbon Dioxide Anion Gap POC BUN BUN Creatinine POC Creatinine Glucose POC Glucose Calcium POC WB Ioniz Calcium Phosphorus Total Protein Urine Appearance Hazy A Urine Protein 30 A Urine RBC 6 H Calcium Oxalate Crystal Few A Hyaline Casts 11 H Urine Mucus Few A Ur Oxycodone Screen Suspect positive A Ur Amphetamines Screen Suspect positive A Ethyl Alcohol 0.010 H 06/12/20 13:57 RBC Hct MPV Sodium POC Chloride 112 H Chloride Carbon Dioxide 19 L Anion Gap 19.0 H POC BUN 37 H BUN 33 H Creatinine 2.1 H POC Creatinine 2.3 H Glucose 113 H POC Glucose 113 H Calcium POC WB Ioniz Calcium 1.13 L Phosphorus Total Protein Urine Appearance Urine Protein Urine RBC Calcium Oxalate Crystal Hyaline Casts Urine Mucus Ur Oxycodone Screen Ur Amphetamines Screen Ethyl Alcohol Meds: Medications Acetaminophen (Tylenol) 650 mg PO Q6HP PRN PRN Reason: PAIN/FEVER > 101 Hydrocodone Bitart/Acetaminophen ([place] 5/325mg) 1 tab PO Q4HP PRN PRN Reason: PAIN LEVEL 3-6 Last Admin: 06/14/20 03:19 Dose: 1 tab Documented by: Albuterol/Ipratropium (Duoneb) 3 ml NEB Q4HP PRN PRN Reason: Shortness Of Breath Atorvastatin Calcium (Lipitor) 10 mg PO HS [facility] Last Admin: 06/13/20 21:44 Dose: 10 mg Documented by: Baclofen (Lioresal) 20 mg PO DAILY [facility] Last Admin: 06/13/20 09:50 Dose: 20 mg Documented by: Clopidogrel Bisulfate (Plavix) 75 mg PO QDAY [facility] Last Admin: 06/13/20 09:51 Dose: 75 mg Documented by: Docusate Sodium (Colace) 100 mg PO BID PRN PRN Reason: Constipation Enoxaparin Sodium (Lovenox) 30 mg SQ DAILY [facility] Last Admin: 06/13/20 09:50 Dose: 30 mg Documented by: Potassium Chloride 40 meq/ (Dextrose) 520 mls @ 130 mls/hr IV UD PRN PRN Reason: Potassium < 3 Magnesium Sulfate (Magnesium Sulfate) 2 gm in 50 mls @ 50 mls/hr IV UD PRN PRN Reason: Magnesium </= 1.6 Potassium Chloride/Dextrose/Sod Cl (Dextrose 5%-1/2ns W/10meq Kcl) 1,000 mls @ 75 mls/hr IV .[id number] [facility] Stop: 06/14/20 11:09 Last Admin: 06/14/20 01:50 Dose: 75 mls/hr Documented by: Melatonin (Melatonin 3mg Tablet) 3 mg PO QHS [facility] Last Admin: 06/13/20 21:45 Dose: 3 mg Documented by: Olanzapine (Zyprexa) 5 mg PO Q8HP PRN PRN Reason: Agitation Ondansetron HCl (Zofran) 4 mg IV Q4HP PRN PRN Reason: Nausea And Vomiting Pantoprazole Sodium (Protonix) 40 mg PO QAMAC [facility] Last Admin: 06/13/20 08:27 Dose: Not Given Documented by: Polyethylene Glycol (Miralax) 17 gm PO DAILYP PRN PRN Reason: Constipation Potassium Chloride (Kdur) 40 meq PO UD PRN PRN Reason: Potassium < 3 Pramipexole Dihydrochloride (Mirapex) 0.75 mg PO TID [facility] Last Admin: 06/13/20 21:44 Dose: 0.75 mg Documented by: Senna (Senokot) 2 tab PO DAILYP PRN PRN Reason: Constipation Sertraline HCl (Zoloft) 150 mg PO DAILY [facility] Last Admin: 06/13/20 09:51 Dose: 150 mg Documented by: Sodium Chloride (Saline Flush) 10 ml IV Q8 [facility] Last Admin: 06/14/20 04:18 Dose: Not Given Documented by: Trazodone HCl (Desyrel) 200 mg PO HS PRN PRN Reason: Sleep Last Admin: 06/13/20 21:44 Dose: 200 mg Documented by: A/P Assessment and plan (1) Acute renal failure (ARF): Assessment and plan: Maurisio Briceno is a 70-year-old male with hypertension, hyperlipidemia, chronic pain, depression, admitted on 06/12/20. He presented to ED for confusion. Workup was significant for acute kidney injury. Baseline serum creatinine: 1.0-1.2. Nephrology consultation was requested for acute kidney injury. Acute kidney injury with metabolic acidosis, present on arrival, likely associated with decreased oral intake, resolved. Work up: Urinalysis on 06/12/20: Yellow, hazy, pH 5.0, SG 1.023, protein 30, blood 0.2, leukocyte esterase negative, urine WBC 2. Abdominal US on 09/03/18: Borderline aneurysmal enlargement of the infrarenal abdominal aorta which is stable since comparison ultrasound over one year ago. Consider follow-up in one to two years No recent renal imaging. Progress: Serum creatinine decreased from 2.1 to 1.2 in the past 16 hours. Baseline serum creatinine: 1.0-1.2. Urine output: Not reported. Metabolic acidosis, resolved. Recommendations/Plan: Nephrology will sign off. Status: Acute Qualifiers: Acute renal failure type: unspecified Qualified Code(s): N17.9 - Acute kidney failure, unspecified (2) Metabolic acidosis: Status: Acute Narrative A/P Narrative: Assessment: *MARKUS on CKD II: resolved *Encephalopathy superimposed on underlying dementia: 2/2 above vs progression -CT brain no acute findings *Vascular Dementia: *h/o CVA with residual left-side weakness -on plavix *Poor functional status: pt is wheelchair bound and has RUE contracture *Hypernatremia/dehydration: improved *Depression: *HTN: home lisinopril 10mg *GERD: *Tobacco abuse: *CRISTO on cpap: *Chr pain: *Diarrhea: c. diff neg P: -IVF d/c -low stimulation environment -hold ACEI for markus -cont Plavix/statin -home cpap -pt/ot -CM for placement needs -Smoking cessation counseling -ppx: lovenox 30/PPI Time Spent With Patient Time: Total time spent is greater than 50% in coordination of care (as documented) at patient's floor/unit and/or counseling patient: QUALITY Stroke Symptom Onset Unknown: No VTE Deep Vein Thrombosis/Pulmonary Embolism Present on Admission: No
--- NOTE | 2020-06-14 08:07 | Discharge Summary ---
Discharge Provider Provider Patient information: Note initiated : 06/14/20 at 8:05 am Service Date, if different from initiated Date: [] Patient: Maurisio Briceno 70 y/o M admitted on 06/12/20 for confusion, fever. Chief Complaint: [] Date of admission: 06/12/20 18:50 Discharge date: 06/14/20 Primary care physician: Anna Yates DO Consults: 06/12/20 16:51 Consult to Physician [CONS] Stat Comment: Consulting Provider: Radha Fraser Reason For Exam: Physician to Consult 06/12/20 17:03 Consult to Physician [CONS] Stat Comment: Consulting Provider: Jah Bhatti Reason For Exam: Physician to Consult Discharge Meds Discharge Medications Home Medications melatonin 10 mg capsule 20 mg PO HS cap 03/02/20 [History Confirmed 06/12/20 Last Taken Unknown] baclofen 20 mg PO DAILY 04/16/20 [History Confirmed 06/12/20 Last Taken Unknown] atorvastatin 20 mg tablet 10 mg PO QHS #90 tab 05/16/20 [Rx Confirmed 06/12/20 Last Taken Unknown] clopidogrel 75 mg tablet 75 mg PO QDAY #30 tab 05/16/20 [Rx Confirmed 06/12/20 Last Taken Unknown] docusate sodium 100 mg capsule 100 mg PO BID PRN #60 cap 05/16/20 [Rx Confirmed 06/12/20 Last Taken Unknown] lisinopril 10 mg tablet 10 mg PO DAILY #90 tab 05/16/20 [Rx Confirmed 06/12/20 Last Taken Unknown] oxybutynin chloride 5 mg tablet 5 mg PO BID #60 tab 05/16/20 [Rx Confirmed 06/12/20 Last Taken Unknown] pantoprazole 40 mg tablet,delayed release 40 mg PO DAILY #30 tab 05/16/20 [Rx Confirmed 06/12/20 Last Taken Unknown] pramipexole 0.75 mg tablet 0.75 mg PO TID #90 tab 05/16/20 [Rx Confirmed 06/12/20 Last Taken Unknown] sertraline 100 mg tablet 150 mg PO DAILY #90 tab 05/16/20 [Rx Confirmed 06/12/20 Last Taken Unknown] trazodone 100 mg tablet 200 mg PO HS PRN #30 tab 05/16/20 [Rx Confirmed 06/12/20 Last Taken Unknown] oxycodone-acetaminophen 10 mg-325 mg tablet 1 tab PO BID PRN #60 tab 06/03/20 [Rx Confirmed 06/12/20 Last Taken Unknown] vitamin B complex [B Complex-Vitamin B12] 1 tab PO QDAY 06/12/20 [History Confirmed 06/12/20 Last Taken Unknown] COURSE Hospital Course Hospital course: History of present illness: Mr. Briceno is a 70 year old M Whose family called EMS because he seemed more confused and he was complaining of difficulty urinating. History obtained from the chart as patient is currently sedated after he became quite agitated in the ED pulling at lines and crawling out of bed. In the ED is evaluated found to have acute kidney injury. Urinalysis with hyaline cast but did not lead look infected. Bladder scan for only [address] brain showed no acute infarct. Unable to gather review of systems given sedation. 06/13 Patient sleeping. And appropriate behaviors last night. Afebrile CBC unremarkable. Awaiting chemistry panel. Patient having multiple loose stools. Was unable to gather information regarding this on admit d/t AMS. will check c. diff. 06/14 Doing well. Back to baseline. Stable for discharge home with caretakers. Assessment: *MARKUS on CKD II: resolved *Encephalopathy superimposed on underlying dementia: 2/2 above vs progression -CT brain no acute findings *Vascular Dementia: *h/o CVA with residual left-side weakness -on plavix *Poor functional status: pt is wheelchair bound and has RUE contracture *Hypernatremia/dehydration: improved *Depression: *HTN: home lisinopril 10mg *GERD: *Tobacco abuse: *CRISTO on cpap: *Chr pain: *Diarrhea: c. diff neg Discharge diagnosis: Acute kidney injury and encephalopathy superimposed on like dementia Secondary discharge diagnosis: History of stroke vascular dementia poor functional status dehydration depression hypertension GERD tobacco abuse obstructive sleep apnea chronic pain Time Spent with Patient Time attestation: Total time spent providing and/or coordinating discharge services: Time spent: Greater than 30 minutes EXAM Constitutional Vitals: Temp Pulse Resp BP Pulse Ox 96.9 F L 50 L 22 129/70 94 06/14/20 07:58 06/14/20 07:58 06/14/20 07:58 06/14/20 07:58 06/14/20 07:58 Discharge Data Data Completed and Pending Labs on day of discharge: Labs from last 24 hours 06/14/20 06/13/20 05:21 06:45 Sodium 140 146 H Potassium 4.1 3.7 Chloride 106 110 H Carbon Dioxide 23 22 Anion Gap 11.0 14.0 BUN 16 18 Creatinine 0.9 1.1 GFR Calculation 87 68 Glucose 114 H 87 Uric Acid 5.1 Calcium 8.7 8.4 L Phosphorus 1.8 L Magnesium 1.8 Total Bilirubin 0.3 Direct Bilirubin < 0.2 GGT 19 AST 17 ALT 8 Alkaline Phosphatase 61 Lactate Dehydrogenase 160 Total Protein 5.8 L Albumin 3.6 Globulin 2.2 Albumin/Globulin Ratio 1.6 Triglycerides 76 Preliminary micro results at discharge 06/12/20 14:30 Blood Culture - Preliminary Blood 06/12/20 14:15 Blood Culture - Preliminary Blood Discharge Plan Patient/Caregiver Discharge Instructions Activity: increase activity as tolerated Diet: Regular Diet Prescriptions: Continued atorvastatin 20 mg tablet 10 mg PO QHS Qty: 90 RF: 0 clopidogrel 75 mg tablet 75 mg PO QDAY Qty: 30 RF: 0 docusate sodium 100 mg capsule 100 mg PO BID PRN (Reason: Constipation) Qty: 60 RF: 3 lisinopril 10 mg tablet 10 mg PO DAILY Qty: 90 RF: 0 oxybutynin chloride 5 mg tablet 5 mg PO BID Qty: 60 RF: 1 pantoprazole 40 mg tablet,delayed release (DR/EC) 40 mg PO DAILY Qty: 30 RF: 0 pramipexole 0.75 mg tablet 0.75 mg PO TID Qty: 90 RF: 0 sertraline 100 mg tablet 150 mg PO DAILY Qty: 90 RF: 0 trazodone 100 mg tablet 200 mg PO HS PRN (Reason: Sleep) Qty: 30 RF: 0 oxycodone-acetaminophen 10-325 mg tablet 1 tab PO BID PRN (Reason: pain) Qty: 60 RF: 0 melatonin 10 mg capsule 20 mg PO HS RF: 0 baclofen 20 mg tablet 20 mg PO DAILY RF: 0 vitamin B complex [B Complex-Vitamin B12] Tablet 1 tab PO QDAY RF: 0 Follow Up Plan Follow up with: Anna Yates DO [Primary Care Provider] - Patient Disposition: Home, Self-Care Prognosis: Fair Overall status at discharge: patient is back to baseline Discharge Orders: Discharge Order (Routine); Ordered 06/14/20 [facility]dered By: [facility] VTE Deep Vein Thrombosis/Pulmonary Embolism Present on Admission: No
[2020-06-14] MEDS: CLOPIDOGREL 75 MG TABLET PO SCH (08:19)
[2020-06-14] MEDS: PANTOPRAZOLE 40 MG TABLET PO SCH (08:19)
[2020-06-14] MEDS: PRAMIPEXOLE 0.25 MG TABLET PO SCH (08:19)
[2020-06-14] MEDS: SERTRALINE 50 MG TABLET PO SCH (08:20)
[2020-06-14] MEDS: BACLOFEN 10 MG TABLET PO SCH (08:20)
[2020-06-14] MEDS: ENOXAPARIN 30 MG/0.3 ML SYRINGE SQ SCH (08:21)
== END 2020-06-14 14:07 | disposition home health service (06) | DRG 682 ==
LOC: ED 13:27 → MEDSUR 18:50
PROVIDERS: ADMIT Internal Medicine; ATTEND Internal Medicine